=== PATIENT | female | born 1935 | race Caucasian/White ===

== ENCOUNTER → 2016-09-15 | Outpatient (REF) | payer MEDICARE, MEDICAID ==
[~2016-09-15] MED LIST: ALLO15TA PO; ASPI1TAB PO; CARB1TAB21 PO; CENT1TAB PO; DULO1CAP2 PO; FURO20TA2 PO; GABA-282 PO; INSUHUMDS SC; INSULANT SC; MYRB25TA PO; OMEP20CA3 PO; PRAV20TA2 PO; PREG50CA PO
== END ==
LOC: M LAB REF 16:46
PROVIDERS: ATTEND Obstetrics & Gynecology
DX: N39.46 Mixed incontinence (principal)

== ENCOUNTER → 2016-10-06 | Outpatient (REF) | payer MEDICARE, MEDICAID | LOC: M LAB REF 17:36 | PROVIDERS: ATTEND Obstetrics & Gynecology | DX: N39.42 Incontinence without sensory awareness (principal); N39.46 Mixed incontinence ==

== ENCOUNTER → 2016-10-21 | Outpatient (REF) | payer MEDICARE, MEDICAID | LOC: M LAB REF 09:25 | PROVIDERS: ATTEND Obstetrics & Gynecology | DX: Z87.440 Personal history of urinary (tract) infections (principal); R39.9 Unspecified symptoms and signs involving the genitourinary system ==

== ENCOUNTER 2016-12-04 07:45 | Day surgery (SDC) | payer MEDICARE, MEDICAID ==
[~2016-12-04] VITALS: Ht 147.3 cm; Wt 122.5 kg
[2016-12-04] MEDS ORDERED: LR 1,000 ML IV SCH ×3 (08:00→11:00)
[2016-12-04] MEDS ORDERED: D5W/0.45% SODIUM CHLORIDE 1,000 ML IV SCH (08:00)
[2016-12-04] MEDS ORDERED: LIDOCAINE 2% INJ 100 MG/5 ML SDV (FOR ANES.) As Ordered ONE (08:16)
[2016-12-04] MEDS ORDERED: PROPOFOL 200 MG/20 ML VIAL As Ordered ONE (08:16)
[2016-12-04] MEDS ORDERED: ONDANSETRON 4MG/2ML VIAL (J2405) As Ordered ONE (08:16)
[2016-12-04] MEDS ORDERED: dexameTHASONE 4 MG/ML 1ML VIAL (J1100) As Ordered ONE (08:16)
[2016-12-04] MEDS ORDERED: fentaNYL 100 MCG/2 ML INJECTION (J3010) As Ordered ONE (08:16)
[2016-12-04] MEDS ORDERED: MIDAZOLAM INJ 2 MG/2 ML VIAL (J2250) As Ordered ONE (08:16)
[2016-12-04] MEDS ORDERED: BUPIVACAINE HCL 0.5% 30 ML VIAL As Ordered ONE (09:42)
[2016-12-04] MEDS ORDERED: KETOROLAC 30 MG/ML VIAL (J1885) As Ordered ONE (10:42)
[2016-12-04] MEDS ORDERED: IBUPROFEN 600 MG TAB PO PRN (11:00)
[2016-12-04] MEDS ORDERED: ONDANSETRON 4MG/2ML VIAL (J2405) IV PRN (11:00)
[2016-12-04] MEDS ORDERED: KETOROLAC 30 MG/ML VIAL (J1885) IV ONE (11:00)
[2016-12-04] MEDS ORDERED: NORCO, ANEXSIA 5/325MG TABLET (HYDROcodone/ACETAMINOPHEN) PO PRN (11:00)
[2016-12-04] MEDS ORDERED: fentaNYL 100 MCG/2 ML INJECTION (J3010) IV PRN (11:00)
--- NOTE | 2016-12-04 11:53 | RO ---
DATE OF SURGERY: 12/04/2016 PREOPERATIVE DIAGNOSES AND INDICATION FOR SURGERY: Intrinsic sphincteric deficiency and incontinence. POSTOPERATIVE DIAGNOSES: Intrinsic sphincteric deficiency and incontinence. PROCEDURE: Cystourethroscopy with macroplastique periurethral bulking. SURGEON: Rosie Dailey MD APPLIANCE SERVICE TECHNICIAN: ANESTHESIA: Laryngeal mask airway (LMA) anesthesia. BRIEF DESCRIPTION OF PROCEDURE AND FINDINGS: Ritu was brought to the operating room, where sufficient LMA anesthesia was induced. She was prepped, draped, and positioned in the usual sterile fashion. 5 mL of Marcaine were placed periurethrally each side for a urethral block and postoperative numbing, and the cystoscope was placed. Our picture initially was seriously suboptimal. We had some light cord difficulties, but we were able to find the urethral orifices, and we also in manipulating the scope, initially thinking that there was another problem, we did scrape the wall of the bladder a little, so there is a picture of a little bit of the unroofed mucosa, but it is clearly not a full-thickness injury, and we watched that. It stopped bleeding on its own, but it is not a polyp in the picture; that is actually from the scope and our inability to visualize well initially, which did resolve after switching out light cord and scope, and we had a better picture. We then were able to show the lower bladder segment and the urethra, and there was clearly laxity, and we injected macroplastique periurethrally, injecting at 8 o'clock and about 4:30 with good coaptation of the tissues. We injected about an ampule and three-quarters, so a little under two ampules, and we were able to get good coaptation of the tissues without any evidence of a blowout. We waited 30 seconds after injecting at each site before pulling out the needle and then ended the procedure after the macroplastique periurethral bulking was completed. Estimated blood loss for the procedure was a mL or two, just from the injection, maybe 5 maximum. SPECIMEN: None. COMPLICATION: None. CONDITION AND DISPOSITION: Ritu tolerated the procedure well and was recovering in the recovery room in good condition.
[2016-12-04 11:56] VITALS: BP 170/77
== END 2016-12-04 11:57 | disposition home or self-care (01) ==
LOC: M SDC 07:45
PROVIDERS: ATTEND Obstetrics & Gynecology
DX: N36.42 Intrinsic sphincter deficiency (ISD) (principal); R32 Unspecified urinary incontinence; E11.9 Type 2 diabetes mellitus without complications; Z88.0 Allergy status to penicillin; Z79.4 Long term (current) use of insulin; Z79.899 Other long term (current) drug therapy; E78.5 Hyperlipidemia, unspecified; G25.81 Restless legs syndrome; F32.9 Major depressive disorder, single episode, unspecified; R06.02 Shortness of breath
CPT/HCPCS: 51715; C1815; J0690; J1100; J1885; J2250; J2405; J3010

== ENCOUNTER 2017-02-08 16:25 | Emergency (ER) | payer MEDICARE, MEDICAID ==
[2017-02-08] MEDS: MORPHINE 4 MG/ML 1ML SYRINGE IV ×2 (16:53→19:51)
[2017-02-08 17:11] LABS: BASO # 0.2 10^3/uL (0.0-0.2); BASO % 1.1 % (0.0-1.0); EOS # 0.2 10^3/uL (0.0-0.50); EOS % 1.2 % (0.0-3.0); IMMATURE GRANULOCYTE # 0.1 10^3/uL (0-0); IMMATURE GRANULOCYTE % 0.7 % (0-0); LYMPH # 1.9 10^3/uL (1.5-4.5); MEAN CORPUSCULAR HEMOGLOBIN 28.8 pg (27.0-33.0); MEAN CORPUSCULAR HGB CONC 31.9 g/dl (32.0-36.5); MONO # 0.8 10^3/uL (0.0-0.8); MONO % 6.4 % (0.0-5.0); NEUTROPHILS # 10.1 10^3/uL (1.8-7.7); NEUTROPHILS % 76.6 % (36.0-66.0); PLATELET COUNT, AUTOMATED 290 10^3/uL (150-450); RED CELL DISTRIBUTION WIDTH 13.3 % (11.5-14.5); WHITE BLOOD COUNT 13.2 10^3/uL (4.0-10.0)
[2017-02-08 17:17] LABS: INR 0.96
[2017-02-08 18:09] LABS: ANION GAP 7 MEQ/L (8-16); BLOOD UREA NITROGEN 18 MG/DL (7-18); CALCIUM LEVEL 8.6 MG/DL (8.8-10.2); CARBON DIOXIDE LEVEL 28 MEQ/L (21-32); CHLORIDE LEVEL 107 MEQ/L (98-107); GLOMERULAR FILTRATION RATE 56.5 (>32); GLUCOSE, FASTING 176 MG/DL (83-110); POTASSIUM SERUM 4.8 MEQ/L (3.5-5.1); SODIUM LEVEL 142 MEQ/L (136-145)
== END 2017-02-08 19:57 | disposition short-term general hospital (02) ==
LOC: M ED 16:25
DX: S72.125A Nondisplaced fracture of lesser trochanter of left femur, initial encounter for closed fracture (principal); W01.198A Fall on same level from slipping, tripping and stumbling with subsequent striking against other object, initial encounter; Y92.099 Unspecified place in other non-institutional residence as the place of occurrence of the external cause; Y93.01 Activity, walking, marching and hiking; Y99.9 Unspecified external cause status
CPT/HCPCS: 71010

== ENCOUNTER → 2017-02-18 | Outpatient (REF) ==
[2017-02-18 11:00] LABS: HEMATOCRIT 28.6 % (36.0-47.0); HEMOGLOBIN 9.4 g/dl (12.0-16.0); MEAN CORPUSCULAR HEMOGLOBIN 29.2 pg (27.0-33.0); MEAN CORPUSCULAR HGB CONC 32.9 g/dl (32.0-36.5); MEAN CORPUSCULAR VOLUME 88.8 fl (80.0-96.0); PLATELET COUNT, AUTOMATED 373 10^3/uL (150-450); RED BLOOD COUNT 3.22 10^6/uL (4.00-5.40); RED CELL DISTRIBUTION WIDTH 13.6 % (11.5-14.5)
[2017-02-18 11:23] LABS: ANION GAP 8 MEQ/L (8-16); BLOOD UREA NITROGEN 18 MG/DL (7-18); CALCIUM LEVEL 8.1 MG/DL (8.8-10.2); CARBON DIOXIDE LEVEL 35 MEQ/L (21-32); CHLORIDE LEVEL 96 MEQ/L (98-107); GLOMERULAR FILTRATION RATE > 60.0 (>32); GLUCOSE, FASTING 153 MG/DL (83-110); POTASSIUM SERUM 3.4 MEQ/L (3.5-5.1); SODIUM LEVEL 139 MEQ/L (136-145)
== END ==
DX: D64.9 Anemia, unspecified (principal)

== ENCOUNTER → 2017-02-19 | Outpatient (REF) ==
[2017-02-19 20:47] LABS: APPEARANCE, URINE CLOUDY (CLEAR); BACTERIA, URINE AUTO 3+ (NEGATIVE); BILIRUBIN, URINE AUTO NEGATIVE (NEGATIVE); BLOOD, URINE BLOOD 1+ (NEGATIVE); COLOR, URINE YELLOW (YELLOW); GLUCOSE, URINE (UA) AUTO NEGATIVE (NEGATIVE); KETONE, URINE AUTO NEGATIVE (NEGATIVE); LEUKOCYTE ESTERASE, URINE AUTO 3+ (NEGATIVE); MUCUS, URINE SMALL (NEGATIVE); NITRITE, URINE AUTO POSITIVE (NEGATIVE); PROTEIN, URINE AUTO NEGATIVE (NEGATIVE); RBC, URINE AUTO 4 /HPF (0-3); SPECIFIC GRAVITY URINE AUTO 1.008 (1.002-1.035); SQUAMOUS EPITHELIAL CELL UR AU 6 /HPF (0-6); UROBILINOGEN, URINE AUTO 0.2 mg/dL (0.0-2.0); WBC, URINE AUTO 65 /HPF (0-3)
== END ==
DX: D72.829 Elevated white blood cell count, unspecified (principal)

== ENCOUNTER → 2017-02-19 | Outpatient (REF) ==
[2017-02-19 13:42] LABS: HEMATOCRIT 29.8 % (36.0-47.0); HEMOGLOBIN 9.6 g/dl (12.0-16.0); MEAN CORPUSCULAR HEMOGLOBIN 28.6 pg (27.0-33.0); MEAN CORPUSCULAR HGB CONC 32.2 g/dl (32.0-36.5); MEAN CORPUSCULAR VOLUME 88.7 fl (80.0-96.0); PLATELET COUNT, AUTOMATED 447 10^3/uL (150-450); RED BLOOD COUNT 3.36 10^6/uL (4.00-5.40); RED CELL DISTRIBUTION WIDTH 13.6 % (11.5-14.5); WHITE BLOOD COUNT 18.9 10^3/uL (4.0-10.0)
== END ==
DX: D72.829 Elevated white blood cell count, unspecified (principal)

== ENCOUNTER → 2017-02-23 | Outpatient (REF) ==
[2017-02-23 13:32] LABS: HEMATOCRIT 32.3 % (36.0-47.0); HEMOGLOBIN 10.1 g/dl (12.0-16.0); MEAN CORPUSCULAR HEMOGLOBIN 28.5 pg (27.0-33.0); MEAN CORPUSCULAR HGB CONC 31.3 g/dl (32.0-36.5); MEAN CORPUSCULAR VOLUME 91.2 fl (80.0-96.0); PLATELET COUNT, AUTOMATED 604 10^3/uL (150-450); RED BLOOD COUNT 3.54 10^6/uL (4.00-5.40); RED CELL DISTRIBUTION WIDTH 13.9 % (11.5-14.5); WHITE BLOOD COUNT 12.8 10^3/uL (4.0-10.0)
[2017-02-23 13:56] LABS: ANION GAP 6 MEQ/L (8-16); BLOOD UREA NITROGEN 17 MG/DL (7-18); CARBON DIOXIDE LEVEL 36 MEQ/L (21-32); CHLORIDE LEVEL 98 MEQ/L (98-107); CREATININE FOR GFR 0.85 MG/DL (0.55-1.02); GLOMERULAR FILTRATION RATE > 60.0 (>32); GLUCOSE, FASTING 147 MG/DL (83-110); POTASSIUM SERUM 3.8 MEQ/L (3.5-5.1); SODIUM LEVEL 140 MEQ/L (136-145)
== END ==
DX: D72.829 Elevated white blood cell count, unspecified (principal)

== ENCOUNTER → 2017-03-24 | Outpatient (REF) ==
[2017-03-24 11:01] LABS: HEMATOCRIT 34.9 % (36.0-47.0); MEAN CORPUSCULAR HEMOGLOBIN 28.5 pg (27.0-33.0); MEAN CORPUSCULAR HGB CONC 31.5 g/dl (32.0-36.5); MEAN CORPUSCULAR VOLUME 90.4 fl (80.0-96.0); PLATELET COUNT, AUTOMATED 324 10^3/uL (150-450); RED BLOOD COUNT 3.86 10^6/uL (4.00-5.40); RED CELL DISTRIBUTION WIDTH 13.9 % (11.5-14.5); WHITE BLOOD COUNT 7.3 10^3/uL (4.0-10.0)
[2017-03-24 11:30] LABS: ANION GAP 6 MEQ/L (8-16); BLOOD UREA NITROGEN 15 MG/DL (7-18); CALCIUM LEVEL 9.2 MG/DL (8.8-10.2); CARBON DIOXIDE LEVEL 34 MEQ/L (21-32); CHLORIDE LEVEL 97 MEQ/L (98-107); CREATININE FOR GFR 0.78 MG/DL (0.55-1.30); GLOMERULAR FILTRATION RATE > 60.0 (>32); GLUCOSE, FASTING 251 MG/DL (70-100); POTASSIUM SERUM 3.7 MEQ/L (3.5-5.1); SODIUM LEVEL 137 MEQ/L (136-145)
== END ==
DX: D64.9 Anemia, unspecified (principal)

== ENCOUNTER → 2017-04-01 | Outpatient (REF) ==
[2017-04-01 10:52] LABS: HEMATOCRIT 36.4 % (36.0-47.0); HEMOGLOBIN 11.3 g/dl (12.0-16.0); MEAN CORPUSCULAR HEMOGLOBIN 28.4 pg (27.0-33.0); MEAN CORPUSCULAR VOLUME 91.5 fl (80.0-96.0); PLATELET COUNT, AUTOMATED 324 10^3/uL (150-450); RED BLOOD COUNT 3.98 10^6/uL (4.00-5.40); RED CELL DISTRIBUTION WIDTH 13.8 % (11.5-14.5); WHITE BLOOD COUNT 7.8 10^3/uL (4.0-10.0)
[2017-04-01 11:17] LABS: ANION GAP 8 MEQ/L (8-16); BLOOD UREA NITROGEN 14 MG/DL (7-18); CALCIUM LEVEL 8.7 MG/DL (8.8-10.2); CARBON DIOXIDE LEVEL 33 MEQ/L (21-32); CHLORIDE LEVEL 100 MEQ/L (98-107); CREATININE FOR GFR 0.77 MG/DL (0.55-1.30); GLOMERULAR FILTRATION RATE > 60.0 (>32); GLUCOSE, FASTING 186 MG/DL (70-100); POTASSIUM SERUM 4.2 MEQ/L (3.5-5.1); SODIUM LEVEL 141 MEQ/L (136-145)
== END ==
DX: D64.9 Anemia, unspecified (principal)

== ENCOUNTER → 2017-04-22 | Outpatient (REF) ==
[2017-04-22 08:50] LABS: ESTIMATED AVERAGE GLUCOSE 174 MG/DL (60-110); HEMOGLOBIN A1c 7.7 %
== END ==
DX: E11.9 Type 2 diabetes mellitus without complications (principal)

== ENCOUNTER 2017-08-31 10:32 | Emergency (ER) | payer MEDICARE, MEDICAID ==
[2017-08-31] MEDS: DEXTROSE 50% 50 ML SYRINGE IV (12:22)
[2017-08-31] MEDS ORDERED: DEXTROSE 50% 50 ML SYRINGE As Ordered (12:23)
[2017-08-31 13:01] LABS: BEDSIDE GLUCOSE 41 MG/DL (83-110)
[2017-08-31 13:01] LABS: BEDSIDE GLUCOSE 170 MG/DL (83-110)
[2017-08-31] MEDS: NS 500 ML IV (13:11)
[2017-08-31 13:23] LABS: ALBUMIN 2.8 GM/DL (3.2-5.2); ALBUMIN/GLOBULIN RATIO 0.78 (1.00-1.93); ALT/SGPT 11 U/L (12-78); ANION GAP 7 MEQ/L (8-16); AST/SGOT 15 U/L (7-37); BILIRUBIN,DIRECT 0.1 MG/DL (0.0-0.2); BILIRUBIN,TOTAL 0.3 MG/DL (0.2-1.0); BLOOD UREA NITROGEN 16 MG/DL (7-18); CALCIUM LEVEL 8.4 MG/DL (8.8-10.2); CARBON DIOXIDE LEVEL 28 MEQ/L (21-32); CHLORIDE LEVEL 109 MEQ/L (98-107); CPK CREATINE PHOSPHOKINASE 42 U/L (26-192); CREATININE FOR GFR 0.84 MG/DL (0.55-1.30); GLOMERULAR FILTRATION RATE > 60.0 (>32); GLUCOSE, FASTING 47 MG/DL (70-100); POTASSIUM SERUM 3.8 MEQ/L (3.5-5.1); SODIUM LEVEL 144 MEQ/L (136-145); TOTAL PROTEIN 6.4 GM/DL (6.4-8.2); TROPONIN I 0.02 NG/ML (< 0.10)
[2017-08-31 13:28] LABS: ALKALINE PHOSPHATASE 113 U/L (45-117); CK-MB VALUE MASS < 1.0 NG/ML (<3.6); MB/CK RELATIVE INDEX 2.38 (< OR =4); NT-PRO BNP 267 PG/ML (<450); THYROID STIMULATING HORMONE 0.822 uIU/ML (0.358-3.740)
[2017-08-31 14:03] LABS: KETONE, URINE AUTO RFX NEGATIVE (NEGATIVE); RBC, URINE AUTO RFX 1 /HPF (0-3); SQUAM EPITHELIAL CELL UR AURFX 0 /HPF (0-6)
[2017-08-31 14:13] LABS: ESTIMATED AVERAGE GLUCOSE 123 MG/DL (60-110); HEMOGLOBIN A1c 5.9 %
[2017-08-31 14:23] LABS: LEUKOCYTE ESTERASE UR AUTO RFX 1+ (NEGATIVE); NITRITE, URINE AUTO RFX POSITIVE (NEGATIVE); WBC, URINE AUTO RFX 15 /HPF (0-3)
[2017-08-31] MEDS: EXCEDRIN MIGRAINE TABLET PO (14:30)
[2017-08-31] MEDS: CIPROFLOXACIN 500 MG TAB PO (15:21)
[2017-08-31] MEDS: NORCO, ANEXSIA 5/325MG TABLET (HYDROcodone/ACETAMINOPHEN) PO (15:22)
[2017-08-31 15:46] LABS: HEMATOCRIT 36.3 % (36.0-47.0); HEMOGLOBIN 11.7 g/dl (12.0-15.5); MEAN CORPUSCULAR HEMOGLOBIN 30.5 pg (27.0-33.0); MEAN CORPUSCULAR HGB CONC 32.2 g/dl (32.0-36.5); MEAN CORPUSCULAR VOLUME 94.8 fl (80.0-96.0); PLATELET COUNT, AUTOMATED 358 10^3/uL (150-450); RED BLOOD COUNT 3.83 10^6/uL (4.00-5.40); RED CELL DISTRIBUTION WIDTH 13.3 % (11.5-14.5); WHITE BLOOD COUNT 14.4 10^3/uL (4.0-10.0)
== END 2017-08-31 17:55 | disposition home or self-care (01) ==
LOC: M ED 10:32
DX: S00.03XA Contusion of scalp, initial encounter (principal); W19.XXXA Unspecified fall, initial encounter; Y92.091 Bathroom in other non-institutional residence as the place of occurrence of the external cause; Y93.89 Activity, other specified; Y99.9 Unspecified external cause status; E11.649 Type 2 diabetes mellitus with hypoglycemia without coma; N39.0 Urinary tract infection, site not specified; I50.9 Heart failure, unspecified; M47.812 Spondylosis without myelopathy or radiculopathy, cervical region; Z79.82 Long term (current) use of aspirin; Z79.4 Long term (current) use of insulin; Z79.899 Other long term (current) drug therapy; Z88.6 Allergy status to analgesic agent; Z88.0 Allergy status to penicillin
CPT/HCPCS: 71045

== ENCOUNTER 2017-09-07 15:47 | Inpatient (IN) | payer MEDICARE, MEDICAID ==
[2017-09-07] MEDS ORDERED: DEXTROSE 50% 50 ML SYRINGE IV (18:45)
[2017-09-07] MEDS ORDERED: GLUCAGON FOR INJ 1 MG VIAL (J1610) SC (18:45)
[2017-09-07] MEDS ORDERED: ONDANSETRON 4MG/2ML VIAL (J2405) IV (18:45)
[2017-09-07] MEDS ORDERED: GLUCOSE 4 GM CHEW TABLET PO (18:45)
[2017-09-07] MEDS: ACETAMINOPHEN TAB 650MG DOSE (2X325MG) PO ×2 (18:53→23:13)
[2017-09-07 19:43] LABS: HEMATOCRIT 34.2 % (36.0-47.0); HEMOGLOBIN 10.8 g/dl (12.0-15.5); MEAN CORPUSCULAR HEMOGLOBIN 29.5 pg (27.0-33.0); MEAN CORPUSCULAR HGB CONC 31.6 g/dl (32.0-36.5); MEAN CORPUSCULAR VOLUME 93.4 fl (80.0-96.0); PLATELET COUNT, AUTOMATED 331 10^3/uL (150-450); RED BLOOD COUNT 3.66 10^6/uL (4.00-5.40); RED CELL DISTRIBUTION WIDTH 12.9 % (11.5-14.5); WHITE BLOOD COUNT 10.9 10^3/uL (4.0-10.0)
[2017-09-07 20:15] LABS: ANION GAP 7 MEQ/L (8-16); BLOOD UREA NITROGEN 14 MG/DL (7-18); CALCIUM LEVEL 8.3 MG/DL (8.8-10.2); CARBON DIOXIDE LEVEL 29 MEQ/L (21-32); CHLORIDE LEVEL 110 MEQ/L (98-107); CREATININE FOR GFR 0.75 MG/DL (0.55-1.30); GLOMERULAR FILTRATION RATE > 60.0 (>32); GLUCOSE, FASTING 111 MG/DL (70-100); POTASSIUM SERUM 3.6 MEQ/L (3.5-5.1); SODIUM LEVEL 146 MEQ/L (136-145)
[2017-09-07] MEDS: HumaLOG INSULIN (NovoLOG) PER UNIT SC (21:00)
[2017-09-07] MEDS: LEVEMIR (INSULIN DETEMIR) 1 UNITS/0.01ML SC (21:14)
[2017-09-07] MEDS: GABAPENTIN 400 MG CAP PO (21:14)
[2017-09-07] MEDS: PREGABALIN 50 MG CAP (LYRICA) PO (21:14)
[2017-09-07] MEDS: HEPARIN SOD (PORCINE) 5000 UNITS/ML VIAL SC (21:14)
[2017-09-07] MEDS: SINEMET 25-250 TABLET PO (23:13)
[2017-09-08] MEDS: HEPARIN SOD (PORCINE) 5000 UNITS/ML VIAL SC ×3 (05:56→21:12)
[2017-09-08 06:54] LABS: HEMOGLOBIN 10.8 g/dl (12.0-15.5); MEAN CORPUSCULAR HEMOGLOBIN 29.3 pg (27.0-33.0); MEAN CORPUSCULAR HGB CONC 31.8 g/dl (32.0-36.5); MEAN CORPUSCULAR VOLUME 92.1 fl (80.0-96.0); PLATELET COUNT, AUTOMATED 336 10^3/uL (150-450); RED BLOOD COUNT 3.69 10^6/uL (4.00-5.40); WHITE BLOOD COUNT 9.3 10^3/uL (4.0-10.0)
[2017-09-08 07:25] LABS: ANION GAP 8 MEQ/L (8-16); BLOOD UREA NITROGEN 12 MG/DL (7-18); CALCIUM LEVEL 8.4 MG/DL (8.8-10.2); CARBON DIOXIDE LEVEL 29 MEQ/L (21-32); CHLORIDE LEVEL 109 MEQ/L (98-107); CREATININE FOR GFR 0.68 MG/DL (0.55-1.30); GLOMERULAR FILTRATION RATE > 60.0 (>32); POTASSIUM SERUM 3.5 MEQ/L (3.5-5.1); SODIUM LEVEL 146 MEQ/L (136-145)
[2017-09-08] MEDS: HumaLOG INSULIN (NovoLOG) PER UNIT SC ×4 (07:30→21:00)
[2017-09-08 07:49] LABS: GLUCOSE, FASTING 34 MG/DL (70-100)
[2017-09-08] MEDS: ASPIRIN 81 MG ENTERIC TAB PO (08:29)
[2017-09-08] MEDS: DULoxetine 30 MG CAP (CYMBALTA) PO (08:29)
[2017-09-08] MEDS: ALLOPURINOL 300 MG TAB PO (08:29)
[2017-09-08] MEDS: MULTIVITAMINS/MINERALS THERAP 1 TAB PO (08:29)
[2017-09-08] MEDS: GABAPENTIN 400 MG CAP PO ×2 (08:29→21:13)
[2017-09-08] MEDS: PREGABALIN 50 MG CAP (LYRICA) PO ×2 (08:29→21:12)
[2017-09-08] MEDS: OMEPRAZOLE 20 MG CAP PO (08:29)
[2017-09-08] MEDS: PRAVASTATIN 20 MG TAB PO (08:29)
[2017-09-08] MEDS: FUROSEMIDE 20 MG TAB PO (08:29)
[2017-09-08] MEDS: ACETAMINOPHEN TAB 650MG DOSE (2X325MG) PO ×2 (08:34→16:17)
[2017-09-08] MEDS ORDERED: SINEMET 25-250 TABLET PO (09:00)
[2017-09-08 09:11] LABS: BEDSIDE GLUCOSE 80 MG/DL (83-110)
[2017-09-08 11:47] LABS: BEDSIDE GLUCOSE 85 MG/DL (83-110)
[2017-09-08] MEDS: NORCO, ANEXSIA 5/325MG TABLET (HYDROcodone/ACETAMINOPHEN) PO (11:49)
[2017-09-08 15:20] LABS: CPK CREATINE PHOSPHOKINASE 28 U/L (26-192); THYROID STIMULATING HORMONE 0.283 uIU/ML (0.358-3.740)
[2017-09-08 16:39] LABS: BEDSIDE GLUCOSE 132 MG/DL (83-110)
[2017-09-08 19:42] LABS: BEDSIDE GLUCOSE 141 MG/DL (83-110)
[2017-09-08] MEDS: LEVEMIR (INSULIN DETEMIR) 1 UNITS/0.01ML SC (21:11)
[2017-09-08] MEDS: SINEMET 25-250 TABLET PO (21:13)
[2017-09-09] MEDS: HEPARIN SOD (PORCINE) 5000 UNITS/ML VIAL SC ×3 (06:09→22:03)
[2017-09-09 06:14] LABS: BEDSIDE GLUCOSE 103 MG/DL (83-110)
[2017-09-09 07:19] LABS: HEMATOCRIT 34.3 % (36.0-47.0); HEMOGLOBIN 10.8 g/dl (12.0-15.5); MEAN CORPUSCULAR HEMOGLOBIN 29.6 pg (27.0-33.0); MEAN CORPUSCULAR HGB CONC 31.5 g/dl (32.0-36.5); PLATELET COUNT, AUTOMATED 342 10^3/uL (150-450); RED BLOOD COUNT 3.65 10^6/uL (4.00-5.40); WHITE BLOOD COUNT 7.9 10^3/uL (4.0-10.0)
[2017-09-09] MEDS: HumaLOG INSULIN (NovoLOG) PER UNIT SC ×4 (07:30→20:52)
[2017-09-09 07:42] LABS: ANION GAP 6 MEQ/L (8-16); BLOOD UREA NITROGEN 12 MG/DL (7-18); CALCIUM LEVEL 8.2 MG/DL (8.8-10.2); CARBON DIOXIDE LEVEL 31 MEQ/L (21-32); CHLORIDE LEVEL 109 MEQ/L (98-107); CREATININE FOR GFR 0.67 MG/DL (0.55-1.30); GLOMERULAR FILTRATION RATE > 60.0 (>32); GLUCOSE, FASTING 83 MG/DL (70-100); POTASSIUM SERUM 3.7 MEQ/L (3.5-5.1); SODIUM LEVEL 146 MEQ/L (136-145)
[2017-09-09 08:50] LABS: FREE THYROXINE INDEX 2.9 % (1.3-4.8); T UPTAKE 38 % (30-39); THYROXINE (T4) 7.6 UG/DL (4.5-12.0)
[2017-09-09] MEDS: PREGABALIN 50 MG CAP (LYRICA) PO ×2 (09:03→20:52)
[2017-09-09] MEDS: FUROSEMIDE 20 MG TAB PO (09:04)
[2017-09-09] MEDS: DULoxetine 30 MG CAP (CYMBALTA) PO (09:04)
[2017-09-09] MEDS: OMEPRAZOLE 20 MG CAP PO (09:04)
[2017-09-09] MEDS: MULTIVITAMINS/MINERALS THERAP 1 TAB PO (09:04)
[2017-09-09] MEDS: PRAVASTATIN 20 MG TAB PO (09:04)
[2017-09-09] MEDS: ALLOPURINOL 300 MG TAB PO (09:04)
[2017-09-09] MEDS: GABAPENTIN 400 MG CAP PO ×2 (09:04→20:52)
[2017-09-09] MEDS: ASPIRIN 81 MG ENTERIC TAB PO (09:04)
[2017-09-09 11:40] LABS: BEDSIDE GLUCOSE 133 MG/DL (83-110)
[2017-09-09] MEDS: NORCO, ANEXSIA 5/325MG TABLET (HYDROcodone/ACETAMINOPHEN) PO ×2 (12:06→20:54)
[2017-09-09 16:35] LABS: BEDSIDE GLUCOSE 215 MG/DL (83-110)
[2017-09-09 19:49] LABS: BEDSIDE GLUCOSE 171 MG/DL (83-110)
[2017-09-09] MEDS: LEVEMIR (INSULIN DETEMIR) 1 UNITS/0.01ML SC (20:52)
[2017-09-09] MEDS: SINEMET 25-250 TABLET PO (20:52)
[2017-09-10] MEDS: HEPARIN SOD (PORCINE) 5000 UNITS/ML VIAL SC ×3 (05:41→21:10)
[2017-09-10 06:13] LABS: HEMATOCRIT 35.5 % (36.0-47.0); MEAN CORPUSCULAR HEMOGLOBIN 29.3 pg (27.0-33.0); MEAN CORPUSCULAR VOLUME 94.7 fl (80.0-96.0); PLATELET COUNT, AUTOMATED 327 10^3/uL (150-450); RED BLOOD COUNT 3.75 10^6/uL (4.00-5.40); WHITE BLOOD COUNT 8.5 10^3/uL (4.0-10.0)
[2017-09-10 06:30] LABS: ANION GAP 6 MEQ/L (8-16); BLOOD UREA NITROGEN 12 MG/DL (7-18); CALCIUM LEVEL 8.4 MG/DL (8.8-10.2); CARBON DIOXIDE LEVEL 32 MEQ/L (21-32); CHLORIDE LEVEL 105 MEQ/L (98-107); CREATININE FOR GFR 0.68 MG/DL (0.55-1.30); GLOMERULAR FILTRATION RATE > 60.0 (>32); GLUCOSE, FASTING 147 MG/DL (70-100); POTASSIUM SERUM 3.7 MEQ/L (3.5-5.1); SODIUM LEVEL 143 MEQ/L (136-145)
[2017-09-10] MEDS: PRAVASTATIN 20 MG TAB PO (08:09)
[2017-09-10] MEDS: ASPIRIN 81 MG ENTERIC TAB PO (08:09)
[2017-09-10] MEDS: GABAPENTIN 400 MG CAP PO ×2 (08:09→21:10)
[2017-09-10] MEDS: ALLOPURINOL 300 MG TAB PO (08:09)
[2017-09-10] MEDS: FUROSEMIDE 20 MG TAB PO (08:09)
[2017-09-10] MEDS: DULoxetine 30 MG CAP (CYMBALTA) PO (08:09)
[2017-09-10] MEDS: MULTIVITAMINS/MINERALS THERAP 1 TAB PO (08:10)
[2017-09-10] MEDS: OMEPRAZOLE 20 MG CAP PO (08:10)
[2017-09-10] MEDS: PREGABALIN 50 MG CAP (LYRICA) PO ×2 (08:10→21:10)
[2017-09-10] MEDS: HumaLOG INSULIN (NovoLOG) PER UNIT SC ×4 (08:10→21:00)
[2017-09-10 11:56] LABS: BEDSIDE GLUCOSE 131 MG/DL (83-110)
[2017-09-10] MEDS: NORCO, ANEXSIA 5/325MG TABLET (HYDROcodone/ACETAMINOPHEN) PO ×2 (14:44→23:08)
[2017-09-10 16:53] LABS: BEDSIDE GLUCOSE 169 MG/DL (83-110)
[2017-09-10 20:47] LABS: BEDSIDE GLUCOSE 145 MG/DL (83-110)
[2017-09-10] MEDS: SINEMET 25-250 TABLET PO (21:10)
[2017-09-10] MEDS: LEVEMIR (INSULIN DETEMIR) 1 UNITS/0.01ML SC (21:11)
[2017-09-11] MEDS: HEPARIN SOD (PORCINE) 5000 UNITS/ML VIAL SC ×3 (05:20→21:16)
[2017-09-11 05:54] LABS: HEMATOCRIT 35.9 % (36.0-47.0); HEMOGLOBIN 11.2 g/dl (12.0-15.5); MEAN CORPUSCULAR HEMOGLOBIN 29.6 pg (27.0-33.0); MEAN CORPUSCULAR HGB CONC 31.2 g/dl (32.0-36.5); MEAN CORPUSCULAR VOLUME 94.7 fl (80.0-96.0); PLATELET COUNT, AUTOMATED 331 10^3/uL (150-450); RED BLOOD COUNT 3.79 10^6/uL (4.00-5.40); WHITE BLOOD COUNT 9.2 10^3/uL (4.0-10.0)
[2017-09-11 06:10] LABS: ANION GAP 5 MEQ/L (8-16); BLOOD UREA NITROGEN 13 MG/DL (7-18); CALCIUM LEVEL 8.6 MG/DL (8.8-10.2); CARBON DIOXIDE LEVEL 33 MEQ/L (21-32); CHLORIDE LEVEL 105 MEQ/L (98-107); GLOMERULAR FILTRATION RATE > 60.0 (>32); GLUCOSE, FASTING 128 MG/DL (70-100); POTASSIUM SERUM 3.9 MEQ/L (3.5-5.1); SODIUM LEVEL 143 MEQ/L (136-145)
[2017-09-11] MEDS: OMEPRAZOLE 20 MG CAP PO (08:47)
[2017-09-11] MEDS: GABAPENTIN 400 MG CAP PO ×2 (08:47→21:16)
[2017-09-11] MEDS: PRAVASTATIN 20 MG TAB PO (08:47)
[2017-09-11] MEDS: ALLOPURINOL 300 MG TAB PO (08:47)
[2017-09-11] MEDS: DULoxetine 30 MG CAP (CYMBALTA) PO (08:47)
[2017-09-11] MEDS: ASPIRIN 81 MG ENTERIC TAB PO (08:47)
[2017-09-11] MEDS: PREGABALIN 50 MG CAP (LYRICA) PO ×2 (08:48→21:16)
[2017-09-11] MEDS: MULTIVITAMINS/MINERALS THERAP 1 TAB PO (08:48)
[2017-09-11] MEDS: FUROSEMIDE 20 MG TAB PO (08:48)
[2017-09-11] MEDS: HumaLOG INSULIN (NovoLOG) PER UNIT SC ×4 (08:49→21:00)
[2017-09-11 12:02] LABS: BEDSIDE GLUCOSE 142 MG/DL (83-110)
[2017-09-11] MEDS: ACETAMINOPHEN TAB 650MG DOSE (2X325MG) PO (15:28)
[2017-09-11 17:01] LABS: BEDSIDE GLUCOSE 182 MG/DL (83-110)
[2017-09-11] MEDS: NORCO, ANEXSIA 5/325MG TABLET (HYDROcodone/ACETAMINOPHEN) PO (17:31)
[2017-09-11 20:10] LABS: BEDSIDE GLUCOSE 232 MG/DL (83-110)
[2017-09-11] MEDS: LEVEMIR (INSULIN DETEMIR) 1 UNITS/0.01ML SC (21:16)
[2017-09-11] MEDS: SINEMET 25-250 TABLET PO (21:16)
[2017-09-12 00:09] LABS: ACETYLCHOLINE RCPTOR BINDING A 2.32 nmol/L (0.00-0.24)
[2017-09-12] MEDS: HEPARIN SOD (PORCINE) 5000 UNITS/ML VIAL SC ×3 (06:03→21:10)
[2017-09-12 06:23] LABS: HEMATOCRIT 34.4 % (36.0-47.0); HEMOGLOBIN 10.7 g/dl (12.0-15.5); MEAN CORPUSCULAR HEMOGLOBIN 29.3 pg (27.0-33.0); MEAN CORPUSCULAR HGB CONC 31.1 g/dl (32.0-36.5); MEAN CORPUSCULAR VOLUME 94.2 fl (80.0-96.0); PLATELET COUNT, AUTOMATED 312 10^3/uL (150-450); RED BLOOD COUNT 3.65 10^6/uL (4.00-5.40); RED CELL DISTRIBUTION WIDTH 13.1 % (11.5-14.5); WHITE BLOOD COUNT 9.6 10^3/uL (4.0-10.0)
[2017-09-12 06:37] LABS: ANION GAP 5 MEQ/L (8-16); BLOOD UREA NITROGEN 15 MG/DL (7-18); CALCIUM LEVEL 8.6 MG/DL (8.8-10.2); CARBON DIOXIDE LEVEL 33 MEQ/L (21-32); CHLORIDE LEVEL 104 MEQ/L (98-107); CREATININE FOR GFR 0.71 MG/DL (0.55-1.30); GLOMERULAR FILTRATION RATE > 60.0 (>32); GLUCOSE, FASTING 134 MG/DL (70-100); POTASSIUM SERUM 3.5 MEQ/L (3.5-5.1); SODIUM LEVEL 142 MEQ/L (136-145)
[2017-09-12] MEDS: HumaLOG INSULIN (NovoLOG) PER UNIT SC ×4 (07:59→20:33)
[2017-09-12] MEDS: MULTIVITAMINS/MINERALS THERAP 1 TAB PO (07:59)
[2017-09-12] MEDS: ALLOPURINOL 300 MG TAB PO (07:59)
[2017-09-12] MEDS: OMEPRAZOLE 20 MG CAP PO (08:00)
[2017-09-12] MEDS: PRAVASTATIN 20 MG TAB PO (08:00)
[2017-09-12] MEDS: FUROSEMIDE 20 MG TAB PO (08:00)
[2017-09-12] MEDS: DULoxetine 30 MG CAP (CYMBALTA) PO (08:00)
[2017-09-12] MEDS: ASPIRIN 81 MG ENTERIC TAB PO (08:00)
[2017-09-12] MEDS: GABAPENTIN 400 MG CAP PO ×2 (08:00→21:10)
[2017-09-12] MEDS: PREGABALIN 50 MG CAP (LYRICA) PO ×2 (08:00→21:10)
[2017-09-12 11:59] LABS: BEDSIDE GLUCOSE 154 MG/DL (83-110)
[2017-09-12 16:47] LABS: BEDSIDE GLUCOSE 248 MG/DL (83-110)
[2017-09-12 20:15] LABS: BEDSIDE GLUCOSE 217 MG/DL (83-110)
[2017-09-12] MEDS: LEVEMIR (INSULIN DETEMIR) 1 UNITS/0.01ML SC (21:09)
[2017-09-12] MEDS: SINEMET 25-250 TABLET PO (21:10)
[2017-09-12] MEDS: NORCO, ANEXSIA 5/325MG TABLET (HYDROcodone/ACETAMINOPHEN) PO (22:23)
[2017-09-13] MEDS: ACETAMINOPHEN TAB 650MG DOSE (2X325MG) PO (01:21)
[2017-09-13] MEDS: HEPARIN SOD (PORCINE) 5000 UNITS/ML VIAL SC ×3 (05:14→21:07)
[2017-09-13 06:04] LABS: HEMOGLOBIN 11.1 g/dl (12.0-15.5); MEAN CORPUSCULAR HEMOGLOBIN 29.4 pg (27.0-33.0); MEAN CORPUSCULAR HGB CONC 31.7 g/dl (32.0-36.5); MEAN CORPUSCULAR VOLUME 92.8 fl (80.0-96.0); PLATELET COUNT, AUTOMATED 319 10^3/uL (150-450); RED BLOOD COUNT 3.77 10^6/uL (4.00-5.40); RED CELL DISTRIBUTION WIDTH 13.1 % (11.5-14.5); WHITE BLOOD COUNT 10.9 10^3/uL (4.0-10.0)
[2017-09-13 06:25] LABS: ANION GAP 6 MEQ/L (8-16); BLOOD UREA NITROGEN 17 MG/DL (7-18); CALCIUM LEVEL 8.5 MG/DL (8.8-10.2); CARBON DIOXIDE LEVEL 32 MEQ/L (21-32); CHLORIDE LEVEL 105 MEQ/L (98-107); CREATININE FOR GFR 0.76 MG/DL (0.55-1.30); GLOMERULAR FILTRATION RATE > 60.0 (>32); GLUCOSE, FASTING 140 MG/DL (70-100); POTASSIUM SERUM 3.7 MEQ/L (3.5-5.1); SODIUM LEVEL 143 MEQ/L (136-145)
[2017-09-13] MEDS: DULoxetine 30 MG CAP (CYMBALTA) PO (08:41)
[2017-09-13] MEDS: ASPIRIN 81 MG ENTERIC TAB PO (08:41)
[2017-09-13] MEDS: ALLOPURINOL 300 MG TAB PO (08:41)
[2017-09-13] MEDS: PRAVASTATIN 20 MG TAB PO (08:41)
[2017-09-13] MEDS: PREGABALIN 50 MG CAP (LYRICA) PO ×2 (08:41→21:06)
[2017-09-13] MEDS: FUROSEMIDE 20 MG TAB PO (08:42)
[2017-09-13] MEDS: GABAPENTIN 400 MG CAP PO ×2 (08:42→21:06)
[2017-09-13] MEDS: MULTIVITAMINS/MINERALS THERAP 1 TAB PO (08:42)
[2017-09-13] MEDS: HumaLOG INSULIN (NovoLOG) PER UNIT SC ×4 (08:42→21:00)
[2017-09-13] MEDS: OMEPRAZOLE 20 MG CAP PO (08:42)
[2017-09-13 12:25] LABS: BEDSIDE GLUCOSE 143 MG/DL (83-110)
[2017-09-13] MEDS: NORCO, ANEXSIA 5/325MG TABLET (HYDROcodone/ACETAMINOPHEN) PO (16:35)
[2017-09-13 16:53] LABS: BEDSIDE GLUCOSE 249 MG/DL (83-110)
[2017-09-13 20:46] LABS: BEDSIDE GLUCOSE 146 MG/DL (83-110)
[2017-09-13] MEDS: LEVEMIR (INSULIN DETEMIR) 1 UNITS/0.01ML SC (21:06)
[2017-09-13] MEDS: SINEMET 25-250 TABLET PO (21:06)
[2017-09-14] MEDS: HEPARIN SOD (PORCINE) 5000 UNITS/ML VIAL SC ×3 (05:37→21:23)
[2017-09-14 05:52] LABS: HEMATOCRIT 34.2 % (36.0-47.0); HEMOGLOBIN 10.6 g/dl (12.0-15.5); MEAN CORPUSCULAR HEMOGLOBIN 29.2 pg (27.0-33.0); MEAN CORPUSCULAR VOLUME 94.2 fl (80.0-96.0); PLATELET COUNT, AUTOMATED 313 10^3/uL (150-450); RED BLOOD COUNT 3.63 10^6/uL (4.00-5.40); RED CELL DISTRIBUTION WIDTH 13.2 % (11.5-14.5); WHITE BLOOD COUNT 9.9 10^3/uL (4.0-10.0)
[2017-09-14 06:05] LABS: ANION GAP 3 MEQ/L (8-16); BLOOD UREA NITROGEN 17 MG/DL (7-18); CALCIUM LEVEL 8.3 MG/DL (8.8-10.2); CARBON DIOXIDE LEVEL 34 MEQ/L (21-32); CHLORIDE LEVEL 106 MEQ/L (98-107); CREATININE FOR GFR 0.76 MG/DL (0.55-1.30); GLOMERULAR FILTRATION RATE > 60.0 (>32); GLUCOSE, FASTING 132 MG/DL (70-100); POTASSIUM SERUM 3.7 MEQ/L (3.5-5.1); SODIUM LEVEL 143 MEQ/L (136-145)
[2017-09-14] MEDS: ASPIRIN 81 MG ENTERIC TAB PO (09:59)
[2017-09-14] MEDS: PREGABALIN 50 MG CAP (LYRICA) PO ×2 (09:59→21:15)
[2017-09-14] MEDS: OMEPRAZOLE 20 MG CAP PO (09:59)
[2017-09-14] MEDS: MULTIVITAMINS/MINERALS THERAP 1 TAB PO (09:59)
[2017-09-14] MEDS: DULoxetine 30 MG CAP (CYMBALTA) PO (10:00)
[2017-09-14] MEDS: GABAPENTIN 400 MG CAP PO ×2 (10:00→21:15)
[2017-09-14] MEDS: HumaLOG INSULIN (NovoLOG) PER UNIT SC ×4 (10:00→20:26)
[2017-09-14] MEDS: PRAVASTATIN 20 MG TAB PO (10:00)
[2017-09-14] MEDS: ALLOPURINOL 300 MG TAB PO (10:00)
[2017-09-14] MEDS: FUROSEMIDE 20 MG TAB PO (10:01)
[2017-09-14 11:48] LABS: BEDSIDE GLUCOSE 249 MG/DL (83-110)
[2017-09-14] MEDS: PYRIDOSTIGMINE 60 MG TAB PO ×2 (16:00→21:15)
[2017-09-14 17:19] LABS: BEDSIDE GLUCOSE 137 MG/DL (83-110)
[2017-09-14 18:45] LABS: TOTAL PROTEIN 6.7 GM/DL (6.4-8.2)
[2017-09-14 19:02] LABS: VITAMIN B12 LEVEL 1335 PG/ML (247-911)
[2017-09-14 20:15] LABS: BEDSIDE GLUCOSE 147 MG/DL (83-110)
[2017-09-14] MEDS: SINEMET 25-250 TABLET PO (21:15)
[2017-09-14] MEDS: LEVEMIR (INSULIN DETEMIR) 1 UNITS/0.01ML SC (21:25)
[2017-09-14] MEDS: NORCO, ANEXSIA 5/325MG TABLET (HYDROcodone/ACETAMINOPHEN) PO (23:33)
[2017-09-15] MEDS: HEPARIN SOD (PORCINE) 5000 UNITS/ML VIAL SC ×3 (05:12→20:55)
[2017-09-15 05:34] LABS: BEDSIDE GLUCOSE 196 MG/DL (83-110)
[2017-09-15] MEDS: PRAVASTATIN 20 MG TAB PO (10:03)
[2017-09-15] MEDS: ASPIRIN 81 MG ENTERIC TAB PO (10:03)
[2017-09-15] MEDS: GABAPENTIN 400 MG CAP PO ×2 (10:03→20:58)
[2017-09-15] MEDS: HumaLOG INSULIN (NovoLOG) PER UNIT SC ×4 (10:03→20:58)
[2017-09-15] MEDS: DULoxetine 30 MG CAP (CYMBALTA) PO (10:03)
[2017-09-15] MEDS: OMEPRAZOLE 20 MG CAP PO (10:04)
[2017-09-15] MEDS: ALLOPURINOL 300 MG TAB PO (10:04)
[2017-09-15] MEDS: FUROSEMIDE 20 MG TAB PO (10:04)
[2017-09-15] MEDS: PREGABALIN 50 MG CAP (LYRICA) PO ×2 (10:05→21:00)
[2017-09-15] MEDS: MULTIVITAMINS/MINERALS THERAP 1 TAB PO (10:05)
[2017-09-15] MEDS: PYRIDOSTIGMINE 60 MG TAB PO ×3 (10:13→20:57)
[2017-09-15 12:12] LABS: BEDSIDE GLUCOSE 154 MG/DL (83-110)
[2017-09-15 16:58] LABS: BEDSIDE GLUCOSE 122 MG/DL (83-110)
[2017-09-15 19:53] LABS: BEDSIDE GLUCOSE 321 MG/DL (83-110)
[2017-09-15] MEDS: NORCO, ANEXSIA 5/325MG TABLET (HYDROcodone/ACETAMINOPHEN) PO (20:56)
[2017-09-15] MEDS: LEVEMIR (INSULIN DETEMIR) 1 UNITS/0.01ML SC (20:57)
[2017-09-15] MEDS: SINEMET 25-250 TABLET PO (20:57)
[2017-09-16] MEDS: HEPARIN SOD (PORCINE) 5000 UNITS/ML VIAL SC ×3 (05:19→21:06)
[2017-09-16 06:06] LABS: BEDSIDE GLUCOSE 134 MG/DL (83-110)
[2017-09-16] MEDS: PREGABALIN 50 MG CAP (LYRICA) PO ×2 (09:51→21:06)
[2017-09-16] MEDS: PRAVASTATIN 20 MG TAB PO (09:51)
[2017-09-16] MEDS: MULTIVITAMINS/MINERALS THERAP 1 TAB PO (09:51)
[2017-09-16] MEDS: HumaLOG INSULIN (NovoLOG) PER UNIT SC ×4 (09:51→20:57)
[2017-09-16] MEDS: GABAPENTIN 400 MG CAP PO ×2 (09:52→21:06)
[2017-09-16] MEDS: OMEPRAZOLE 20 MG CAP PO (09:52)
[2017-09-16] MEDS: PYRIDOSTIGMINE 60 MG TAB PO ×3 (09:52→21:07)
[2017-09-16] MEDS: DULoxetine 30 MG CAP (CYMBALTA) PO (09:52)
[2017-09-16] MEDS: ALLOPURINOL 300 MG TAB PO (09:52)
[2017-09-16] MEDS: ASPIRIN 81 MG ENTERIC TAB PO (09:52)
[2017-09-16] MEDS: FUROSEMIDE 20 MG TAB PO (09:53)
[2017-09-16] MEDS ORDERED: FLEET ENEMA PR (10:00)
[2017-09-16 11:23] LABS: BEDSIDE GLUCOSE 226 MG/DL (83-110)
[2017-09-16 12:12] LABS: KETONE, URINE AUTO RFX TRACE mg/dL (NEGATIVE); MUCUS, URINE RFX SMALL (NEGATIVE); RBC, URINE AUTO RFX 1 /HPF (0-3); SPECIFIC GRAVITY UR AUTO RFX 1.018 (1.002-1.035); SQUAM EPITHELIAL CELL UR AURFX 0 /HPF (0-6)
[2017-09-16 12:14] LABS: LEUKOCYTE ESTERASE UR AUTO RFX 2+ (NEGATIVE); NITRITE, URINE AUTO RFX POSITIVE (NEGATIVE); WBC, URINE AUTO RFX 163 /HPF (0-3)
[2017-09-16] MEDS: MOM 30ML SUSPENSION UDC PO (12:38)
[2017-09-16] MEDS: DOCUSATE SODIUM 100 MG CAP PO (12:38)
[2017-09-16 16:44] LABS: BEDSIDE GLUCOSE 207 MG/DL (83-110)
[2017-09-16 20:00] LABS: BEDSIDE GLUCOSE 221 MG/DL (83-110)
[2017-09-16] MEDS: BACTRIM 160MG/800MG DS TAB PO (21:06)
[2017-09-16] MEDS: LEVEMIR (INSULIN DETEMIR) 1 UNITS/0.01ML SC (21:06)
[2017-09-16] MEDS: SINEMET 25-250 TABLET PO (21:06)
[2017-09-16] MEDS: NORCO, ANEXSIA 5/325MG TABLET (HYDROcodone/ACETAMINOPHEN) PO (21:08)
[2017-09-17] MEDS: MENTHOL 2% TOP ×3 (01:45→21:19)
[2017-09-17] MEDS: HEPARIN SOD (PORCINE) 5000 UNITS/ML VIAL SC ×3 (05:23→21:19)
[2017-09-17 06:03] LABS: BEDSIDE GLUCOSE 175 MG/DL (83-110)
[2017-09-17] MEDS: OMEPRAZOLE 20 MG CAP PO (08:56)
[2017-09-17] MEDS: PYRIDOSTIGMINE 60 MG TAB PO ×3 (08:56→21:20)
[2017-09-17] MEDS: FUROSEMIDE 20 MG TAB PO (08:56)
[2017-09-17] MEDS: HumaLOG INSULIN (NovoLOG) PER UNIT SC ×4 (08:56→21:21)
[2017-09-17] MEDS: ASPIRIN 81 MG ENTERIC TAB PO (08:56)
[2017-09-17] MEDS: DULoxetine 30 MG CAP (CYMBALTA) PO (08:56)
[2017-09-17] MEDS: MULTIVITAMINS/MINERALS THERAP 1 TAB PO (08:56)
[2017-09-17] MEDS: BACTRIM 160MG/800MG DS TAB PO ×2 (08:56→21:20)
[2017-09-17] MEDS: PREGABALIN 50 MG CAP (LYRICA) PO ×2 (08:57→21:20)
[2017-09-17] MEDS: PRAVASTATIN 20 MG TAB PO (08:57)
[2017-09-17] MEDS: ALLOPURINOL 300 MG TAB PO (08:57)
[2017-09-17] MEDS: GABAPENTIN 400 MG CAP PO ×2 (08:57→21:20)
[2017-09-17 11:47] LABS: BEDSIDE GLUCOSE 157 MG/DL (83-110)
[2017-09-17 12:44] LABS: ALBUMIN 3.44 GM/DL (3.29-5.55); ALBUMIN % 51.4 % (55.8-66.1); ALPHA-2-GLOBULINS 1.03 GM/DL (0.42-0.99); ALPHA-2-GLOBULINS % 15.3 % (7.1-11.8); BETA-1-GLOBULINS 0.42 GM/DL (0.28-0.60); BETA-1-GLOBULINS % 6.3 % (4.7-7.2); BETA-2-GLOBULINS 0.47 GM/DL (0.19-0.55); GAMMA GLOBULINS 0.94 GM/DL (0.65-1.58)
[2017-09-17 16:58] LABS: BEDSIDE GLUCOSE 201 MG/DL (83-110)
[2017-09-17 19:51] LABS: BEDSIDE GLUCOSE 275 MG/DL (83-110)
[2017-09-17] MEDS: LEVEMIR (INSULIN DETEMIR) 1 UNITS/0.01ML SC (21:20)
[2017-09-17] MEDS: SINEMET 25-250 TABLET PO (21:20)
[2017-09-17] MEDS: ACETAMINOPHEN TAB 650MG DOSE (2X325MG) PO (22:43)
[2017-09-18] MEDS: HEPARIN SOD (PORCINE) 5000 UNITS/ML VIAL SC ×3 (05:05→20:56)
[2017-09-18 05:53] LABS: BEDSIDE GLUCOSE 148 MG/DL (83-110)
[2017-09-18 08:13] LABS: COPPER PLASMA 103 ug/dL (72-166)
[2017-09-18] MEDS: PRAVASTATIN 20 MG TAB PO (08:46)
[2017-09-18] MEDS: OMEPRAZOLE 20 MG CAP PO (08:46)
[2017-09-18] MEDS: HumaLOG INSULIN (NovoLOG) PER UNIT SC ×4 (08:46→20:35)
[2017-09-18] MEDS: FUROSEMIDE 20 MG TAB PO (08:47)
[2017-09-18] MEDS: GABAPENTIN 400 MG CAP PO ×2 (08:47→20:55)
[2017-09-18] MEDS: DULoxetine 30 MG CAP (CYMBALTA) PO (08:47)
[2017-09-18] MEDS: MULTIVITAMINS/MINERALS THERAP 1 TAB PO (08:47)
[2017-09-18] MEDS: BACTRIM 160MG/800MG DS TAB PO (08:47)
[2017-09-18] MEDS: ASPIRIN 81 MG ENTERIC TAB PO (08:47)
[2017-09-18] MEDS: PREGABALIN 50 MG CAP (LYRICA) PO ×2 (08:47→20:55)
[2017-09-18] MEDS: ALLOPURINOL 300 MG TAB PO (08:47)
[2017-09-18] MEDS: PYRIDOSTIGMINE 60 MG TAB PO ×3 (08:49→20:58)
[2017-09-18 11:46] LABS: BEDSIDE GLUCOSE 255 MG/DL (83-110)
[2017-09-18] MEDS: NITROFURANTOIN (MACROBID) 100 MG CAP PO ×2 (12:07→20:55)
[2017-09-18 16:36] LABS: BEDSIDE GLUCOSE 122 MG/DL (83-110)
[2017-09-18 19:38] LABS: BEDSIDE GLUCOSE 163 MG/DL (83-110)
[2017-09-18] MEDS: SINEMET 25-250 TABLET PO (20:55)
[2017-09-18] MEDS: LEVEMIR (INSULIN DETEMIR) 1 UNITS/0.01ML SC (20:56)
[2017-09-19] MEDS: HEPARIN SOD (PORCINE) 5000 UNITS/ML VIAL SC ×4 (05:45→20:19)
[2017-09-19 06:51] LABS: BEDSIDE GLUCOSE 131 MG/DL (83-110)
[2017-09-19] MEDS: HumaLOG INSULIN (NovoLOG) PER UNIT SC ×4 (08:15→20:20)
[2017-09-19] MEDS: FUROSEMIDE 20 MG TAB PO (08:17)
[2017-09-19] MEDS: OMEPRAZOLE 20 MG CAP PO (08:17)
[2017-09-19] MEDS: NITROFURANTOIN (MACROBID) 100 MG CAP PO ×2 (08:17→20:21)
[2017-09-19] MEDS: DULoxetine 30 MG CAP (CYMBALTA) PO (08:17)
[2017-09-19] MEDS: GABAPENTIN 400 MG CAP PO ×2 (08:17→20:21)
[2017-09-19] MEDS: PREGABALIN 50 MG CAP (LYRICA) PO ×2 (08:17→20:20)
[2017-09-19] MEDS: MULTIVITAMINS/MINERALS THERAP 1 TAB PO (08:17)
[2017-09-19] MEDS: ASPIRIN 81 MG ENTERIC TAB PO (08:17)
[2017-09-19] MEDS: PYRIDOSTIGMINE 60 MG TAB PO ×3 (08:17→20:20)
[2017-09-19] MEDS: PRAVASTATIN 20 MG TAB PO (08:17)
[2017-09-19] MEDS: ALLOPURINOL 300 MG TAB PO (08:17)
[2017-09-19 11:29] LABS: BEDSIDE GLUCOSE 279 MG/DL (83-110)
[2017-09-19 16:45] LABS: BEDSIDE GLUCOSE 114 MG/DL (83-110)
[2017-09-19 20:03] LABS: BEDSIDE GLUCOSE 278 MG/DL (83-110)
[2017-09-19] MEDS: LEVEMIR (INSULIN DETEMIR) 1 UNITS/0.01ML SC (20:20)
[2017-09-19] MEDS: SINEMET 25-250 TABLET PO (20:21)
[2017-09-19] MEDS: MENTHOL 2% TOP (22:22)
[2017-09-19] MEDS: NORCO, ANEXSIA 5/325MG TABLET (HYDROcodone/ACETAMINOPHEN) PO (22:25)
[2017-09-20] MEDS: HEPARIN SOD (PORCINE) 5000 UNITS/ML VIAL SC ×3 (06:07→20:25)
[2017-09-20 06:26] LABS: BEDSIDE GLUCOSE 170 MG/DL (83-110)
[2017-09-20] MEDS: GABAPENTIN 400 MG CAP PO ×2 (09:29→20:26)
[2017-09-20] MEDS: MULTIVITAMINS/MINERALS THERAP 1 TAB PO (09:29)
[2017-09-20] MEDS: PYRIDOSTIGMINE 60 MG TAB PO ×3 (09:29→20:26)
[2017-09-20] MEDS: NITROFURANTOIN (MACROBID) 100 MG CAP PO ×2 (09:29→20:26)
[2017-09-20] MEDS: ALLOPURINOL 300 MG TAB PO (09:29)
[2017-09-20] MEDS: HumaLOG INSULIN (NovoLOG) PER UNIT SC ×4 (09:29→19:59)
[2017-09-20] MEDS: PREGABALIN 50 MG CAP (LYRICA) PO ×2 (09:30→20:26)
[2017-09-20] MEDS: PRAVASTATIN 20 MG TAB PO (09:30)
[2017-09-20] MEDS: DULoxetine 30 MG CAP (CYMBALTA) PO (09:30)
[2017-09-20] MEDS: ASPIRIN 81 MG ENTERIC TAB PO (09:30)
[2017-09-20] MEDS: FUROSEMIDE 20 MG TAB PO (09:30)
[2017-09-20] MEDS: OMEPRAZOLE 20 MG CAP PO (09:30)
[2017-09-20 11:59] LABS: BEDSIDE GLUCOSE 271 MG/DL (83-110)
[2017-09-20] MEDS: MENTHOL 2% TOP ×2 (13:03→21:49)
[2017-09-20 16:57] LABS: BEDSIDE GLUCOSE 384 MG/DL (83-110)
[2017-09-20] MEDS: NORCO, ANEXSIA 5/325MG TABLET (HYDROcodone/ACETAMINOPHEN) PO (17:26)
[2017-09-20 19:57] LABS: BEDSIDE GLUCOSE 231 MG/DL (83-110)
[2017-09-20] MEDS: LEVEMIR (INSULIN DETEMIR) 1 UNITS/0.01ML SC (20:25)
[2017-09-20] MEDS: SINEMET 25-250 TABLET PO (20:26)
[2017-09-20] MEDS: ACETAMINOPHEN TAB 650MG DOSE (2X325MG) PO (22:04)
[2017-09-21] MEDS: HEPARIN SOD (PORCINE) 5000 UNITS/ML VIAL SC ×3 (06:02→21:06)
[2017-09-21 06:32] LABS: BEDSIDE GLUCOSE 118 MG/DL (83-110)
[2017-09-21] MEDS: HumaLOG INSULIN (NovoLOG) PER UNIT SC ×4 (08:32→21:07)
[2017-09-21] MEDS: NITROFURANTOIN (MACROBID) 100 MG CAP PO ×2 (08:32→21:07)
[2017-09-21] MEDS: GABAPENTIN 400 MG CAP PO ×2 (08:33→21:07)
[2017-09-21] MEDS: OMEPRAZOLE 20 MG CAP PO (08:33)
[2017-09-21] MEDS: PREGABALIN 50 MG CAP (LYRICA) PO ×2 (08:33→21:06)
[2017-09-21] MEDS: ASPIRIN 81 MG ENTERIC TAB PO (08:34)
[2017-09-21] MEDS: MULTIVITAMINS/MINERALS THERAP 1 TAB PO (08:34)
[2017-09-21] MEDS: FUROSEMIDE 20 MG TAB PO (08:34)
[2017-09-21] MEDS: ALLOPURINOL 300 MG TAB PO (08:34)
[2017-09-21] MEDS: PRAVASTATIN 20 MG TAB PO (08:34)
[2017-09-21] MEDS: PYRIDOSTIGMINE 60 MG TAB PO ×3 (08:34→21:08)
[2017-09-21] MEDS: DULoxetine 30 MG CAP (CYMBALTA) PO (08:35)
[2017-09-21 11:59] LABS: BEDSIDE GLUCOSE 197 MG/DL (83-110)
[2017-09-21] MEDS: NORCO, ANEXSIA 5/325MG TABLET (HYDROcodone/ACETAMINOPHEN) PO ×2 (12:58→22:11)
[2017-09-21 16:46] LABS: BEDSIDE GLUCOSE 311 MG/DL (83-110)
[2017-09-21 20:29] LABS: BEDSIDE GLUCOSE 360 MG/DL (83-110)
[2017-09-21] MEDS: SINEMET 25-250 TABLET PO (21:06)
[2017-09-21] MEDS: LEVEMIR (INSULIN DETEMIR) 1 UNITS/0.01ML SC (21:07)
[2017-09-22] MEDS: GABAPENTIN 400 MG CAP PO ×3 (02:31→21:04)
[2017-09-22] MEDS: HEPARIN SOD (PORCINE) 5000 UNITS/ML VIAL SC ×3 (06:01→21:03)
[2017-09-22 06:24] LABS: BEDSIDE GLUCOSE 139 MG/DL (83-110)
[2017-09-22] MEDS: MULTIVITAMINS/MINERALS THERAP 1 TAB PO (09:13)
[2017-09-22] MEDS: PRAVASTATIN 20 MG TAB PO (09:13)
[2017-09-22] MEDS: ASPIRIN 81 MG ENTERIC TAB PO (09:13)
[2017-09-22] MEDS: PREGABALIN 50 MG CAP (LYRICA) PO ×2 (09:13→21:04)
[2017-09-22] MEDS: OMEPRAZOLE 20 MG CAP PO (09:13)
[2017-09-22] MEDS: DULoxetine 30 MG CAP (CYMBALTA) PO (09:13)
[2017-09-22] MEDS: ALLOPURINOL 300 MG TAB PO (09:14)
[2017-09-22] MEDS: HumaLOG INSULIN (NovoLOG) PER UNIT SC ×4 (09:14→19:51)
[2017-09-22] MEDS: FUROSEMIDE 20 MG TAB PO (09:14)
[2017-09-22 11:37] LABS: BEDSIDE GLUCOSE 177 MG/DL (83-110)
[2017-09-22] MEDS: NITROFURANTOIN (MACROBID) 100 MG CAP PO ×2 (12:18→21:04)
[2017-09-22] MEDS: PYRIDOSTIGMINE 60 MG TAB PO ×3 (12:18→21:04)
[2017-09-22] MEDS: NORCO, ANEXSIA 5/325MG TABLET (HYDROcodone/ACETAMINOPHEN) PO (17:03)
[2017-09-22 17:05] LABS: BEDSIDE GLUCOSE 294 MG/DL (83-110)
[2017-09-22 19:42] LABS: BEDSIDE GLUCOSE 216 MG/DL (83-110)
[2017-09-22] MEDS: LEVEMIR (INSULIN DETEMIR) 1 UNITS/0.01ML SC (21:03)
[2017-09-22] MEDS: SINEMET 25-250 TABLET PO (21:04)
[2017-09-22] MEDS: ACETAMINOPHEN TAB 650MG DOSE (2X325MG) PO (21:05)
[2017-09-23] MEDS: HEPARIN SOD (PORCINE) 5000 UNITS/ML VIAL SC ×3 (05:15→20:27)
[2017-09-23 05:37] LABS: BEDSIDE GLUCOSE 148 MG/DL (83-110)
[2017-09-23] MEDS: HumaLOG INSULIN (NovoLOG) PER UNIT SC ×4 (09:45→19:59)
[2017-09-23] MEDS: PREGABALIN 50 MG CAP (LYRICA) PO ×2 (09:45→20:28)
[2017-09-23] MEDS: ALLOPURINOL 300 MG TAB PO (09:45)
[2017-09-23] MEDS: PYRIDOSTIGMINE 60 MG TAB PO ×3 (09:46→20:28)
[2017-09-23] MEDS: OMEPRAZOLE 20 MG CAP PO (09:46)
[2017-09-23] MEDS: FUROSEMIDE 20 MG TAB PO (09:47)
[2017-09-23] MEDS: PRAVASTATIN 20 MG TAB PO (09:47)
[2017-09-23] MEDS: GABAPENTIN 400 MG CAP PO ×2 (09:47→20:28)
[2017-09-23] MEDS: DULoxetine 30 MG CAP (CYMBALTA) PO (09:47)
[2017-09-23] MEDS: MULTIVITAMINS/MINERALS THERAP 1 TAB PO (09:47)
[2017-09-23] MEDS: ASPIRIN 81 MG ENTERIC TAB PO (09:47)
[2017-09-23] MEDS: NITROFURANTOIN (MACROBID) 100 MG CAP PO ×2 (09:48→20:27)
[2017-09-23 10:33] LABS: HEMATOCRIT 38.2 % (36.0-47.0); MEAN CORPUSCULAR HEMOGLOBIN 29.6 pg (27.0-33.0); MEAN CORPUSCULAR HGB CONC 31.4 g/dl (32.0-36.5); MEAN CORPUSCULAR VOLUME 94.1 fl (80.0-96.0); PLATELET COUNT, AUTOMATED 277 10^3/uL (150-450); RED BLOOD COUNT 4.06 10^6/uL (4.00-5.40); RED CELL DISTRIBUTION WIDTH 13.6 % (11.5-14.5); WHITE BLOOD COUNT 8.2 10^3/uL (4.0-10.0)
[2017-09-23 10:57] LABS: ANION GAP 7 MEQ/L (8-16); BLOOD UREA NITROGEN 18 MG/DL (7-18); CALCIUM LEVEL 8.9 MG/DL (8.8-10.2); CARBON DIOXIDE LEVEL 29 MEQ/L (21-32); CHLORIDE LEVEL 106 MEQ/L (98-107); CREATININE FOR GFR 0.96 MG/DL (0.55-1.30); GLOMERULAR FILTRATION RATE 59.1 (>32); GLUCOSE, FASTING 213 MG/DL (70-100); POTASSIUM SERUM 4.6 MEQ/L (3.5-5.1); SODIUM LEVEL 142 MEQ/L (136-145)
[2017-09-23 11:27] LABS: BEDSIDE GLUCOSE 279 MG/DL (83-110)
[2017-09-23 16:48] LABS: BEDSIDE GLUCOSE 265 MG/DL (83-110)
[2017-09-23 19:43] LABS: BEDSIDE GLUCOSE 225 MG/DL (83-110)
[2017-09-23] MEDS: SINEMET 25-250 TABLET PO (20:28)
[2017-09-23] MEDS: LEVEMIR (INSULIN DETEMIR) 1 UNITS/0.01ML SC (20:29)
[2017-09-24] MEDS: HEPARIN SOD (PORCINE) 5000 UNITS/ML VIAL SC ×3 (06:03→21:45)
[2017-09-24] MEDS: ACETAMINOPHEN TAB 650MG DOSE (2X325MG) PO (06:03)
[2017-09-24 06:04] LABS: BEDSIDE GLUCOSE 124 MG/DL (83-110)
[2017-09-24] MEDS: HumaLOG INSULIN (NovoLOG) PER UNIT SC ×4 (08:09→20:28)
[2017-09-24] MEDS: ALLOPURINOL 300 MG TAB PO (08:09)
[2017-09-24] MEDS: PRAVASTATIN 20 MG TAB PO (08:09)
[2017-09-24] MEDS: NITROFURANTOIN (MACROBID) 100 MG CAP PO ×2 (08:09→20:35)
[2017-09-24] MEDS: ASPIRIN 81 MG ENTERIC TAB PO (08:09)
[2017-09-24] MEDS: PREGABALIN 50 MG CAP (LYRICA) PO ×2 (08:09→20:35)
[2017-09-24] MEDS: OMEPRAZOLE 20 MG CAP PO (08:09)
[2017-09-24] MEDS: MULTIVITAMINS/MINERALS THERAP 1 TAB PO (08:10)
[2017-09-24] MEDS: DULoxetine 30 MG CAP (CYMBALTA) PO (08:10)
[2017-09-24] MEDS: PYRIDOSTIGMINE 60 MG TAB PO ×3 (08:10→20:36)
[2017-09-24] MEDS: GABAPENTIN 400 MG CAP PO ×2 (08:10→20:35)
[2017-09-24] MEDS: FUROSEMIDE 20 MG TAB PO (08:10)
[2017-09-24 11:47] LABS: BEDSIDE GLUCOSE 261 MG/DL (83-110)
[2017-09-24] MEDS: NORCO, ANEXSIA 5/325MG TABLET (HYDROcodone/ACETAMINOPHEN) PO ×2 (12:26→20:40)
[2017-09-24 17:24] LABS: BEDSIDE GLUCOSE 200 MG/DL (83-110)
[2017-09-24 19:54] LABS: BEDSIDE GLUCOSE 197 MG/DL (83-110)
[2017-09-24] MEDS: SINEMET 25-250 TABLET PO (20:35)
[2017-09-24] MEDS: LEVEMIR (INSULIN DETEMIR) 1 UNITS/0.01ML SC (20:36)
[2017-09-25] MEDS: HEPARIN SOD (PORCINE) 5000 UNITS/ML VIAL SC ×3 (05:15→20:50)
[2017-09-25 06:59] LABS: BEDSIDE GLUCOSE 177 MG/DL (83-110)
[2017-09-25] MEDS: HumaLOG INSULIN (NovoLOG) PER UNIT SC ×4 (07:51→20:43)
[2017-09-25] MEDS: NORCO, ANEXSIA 5/325MG TABLET (HYDROcodone/ACETAMINOPHEN) PO ×2 (07:54→16:54)
[2017-09-25] MEDS: PYRIDOSTIGMINE 60 MG TAB PO ×3 (08:57→20:51)
[2017-09-25] MEDS: NITROFURANTOIN (MACROBID) 100 MG CAP PO ×2 (08:57→20:51)
[2017-09-25] MEDS: PREGABALIN 50 MG CAP (LYRICA) PO ×2 (08:57→20:51)
[2017-09-25] MEDS: OMEPRAZOLE 20 MG CAP PO (08:57)
[2017-09-25] MEDS: FUROSEMIDE 20 MG TAB PO (08:58)
[2017-09-25] MEDS: DULoxetine 30 MG CAP (CYMBALTA) PO (08:58)
[2017-09-25] MEDS: PRAVASTATIN 20 MG TAB PO (08:58)
[2017-09-25] MEDS: GABAPENTIN 400 MG CAP PO ×2 (08:58→20:51)
[2017-09-25] MEDS: ALLOPURINOL 300 MG TAB PO (08:59)
[2017-09-25] MEDS: MULTIVITAMINS/MINERALS THERAP 1 TAB PO (08:59)
[2017-09-25] MEDS: ASPIRIN 81 MG ENTERIC TAB PO (08:59)
[2017-09-25 11:23] LABS: BEDSIDE GLUCOSE 182 MG/DL (83-110)
[2017-09-25 16:49] LABS: BEDSIDE GLUCOSE 218 MG/DL (83-110)
[2017-09-25 20:10] LABS: BEDSIDE GLUCOSE 211 MG/DL (83-110)
[2017-09-25] MEDS: LEVEMIR (INSULIN DETEMIR) 1 UNITS/0.01ML SC (20:52)
[2017-09-25] MEDS: SINEMET 25-250 TABLET PO (20:52)
[2017-09-26] MEDS: HEPARIN SOD (PORCINE) 5000 UNITS/ML VIAL SC ×3 (06:03→20:40)
[2017-09-26 06:57] LABS: BEDSIDE GLUCOSE 164 MG/DL (83-110)
[2017-09-26] MEDS: ALLOPURINOL 300 MG TAB PO (08:00)
[2017-09-26] MEDS: PREGABALIN 50 MG CAP (LYRICA) PO ×2 (08:00→20:38)
[2017-09-26] MEDS: HumaLOG INSULIN (NovoLOG) PER UNIT SC ×4 (08:00→20:38)
[2017-09-26] MEDS: PRAVASTATIN 20 MG TAB PO (08:00)
[2017-09-26] MEDS: ASPIRIN 81 MG ENTERIC TAB PO (08:00)
[2017-09-26] MEDS: FUROSEMIDE 20 MG TAB PO (08:00)
[2017-09-26] MEDS: MULTIVITAMINS/MINERALS THERAP 1 TAB PO (08:00)
[2017-09-26] MEDS: NITROFURANTOIN (MACROBID) 100 MG CAP PO (08:00)
[2017-09-26] MEDS: GABAPENTIN 400 MG CAP PO ×2 (08:00→20:37)
[2017-09-26] MEDS: OMEPRAZOLE 20 MG CAP PO (08:00)
[2017-09-26] MEDS: DULoxetine 30 MG CAP (CYMBALTA) PO (08:00)
[2017-09-26] MEDS: PYRIDOSTIGMINE 60 MG TAB PO ×3 (08:01→20:37)
[2017-09-26] MEDS: NORCO, ANEXSIA 5/325MG TABLET (HYDROcodone/ACETAMINOPHEN) PO (10:17)
[2017-09-26 11:38] LABS: BEDSIDE GLUCOSE 130 MG/DL (83-110)
[2017-09-26 16:35] LABS: BEDSIDE GLUCOSE 222 MG/DL (83-110)
[2017-09-26 20:31] LABS: BEDSIDE GLUCOSE 222 MG/DL (83-110)
[2017-09-26] MEDS: SINEMET 25-250 TABLET PO (20:37)
[2017-09-26] MEDS: LEVEMIR (INSULIN DETEMIR) 1 UNITS/0.01ML SC (20:39)
[2017-09-27] MEDS: HEPARIN SOD (PORCINE) 5000 UNITS/ML VIAL SC ×3 (05:37→21:32)
[2017-09-27 06:35] LABS: BEDSIDE GLUCOSE 135 MG/DL (83-110)
[2017-09-27] MEDS: ASPIRIN 81 MG ENTERIC TAB PO (08:30)
[2017-09-27] MEDS: ALLOPURINOL 300 MG TAB PO (08:30)
[2017-09-27] MEDS: GABAPENTIN 400 MG CAP PO ×2 (08:30→21:31)
[2017-09-27] MEDS: DULoxetine 30 MG CAP (CYMBALTA) PO (08:30)
[2017-09-27] MEDS: FUROSEMIDE 20 MG TAB PO (08:30)
[2017-09-27] MEDS: HumaLOG INSULIN (NovoLOG) PER UNIT SC ×4 (08:30→21:31)
[2017-09-27] MEDS: PYRIDOSTIGMINE 60 MG TAB PO ×3 (08:31→21:31)
[2017-09-27] MEDS: MULTIVITAMINS/MINERALS THERAP 1 TAB PO (08:31)
[2017-09-27] MEDS: OMEPRAZOLE 20 MG CAP PO (08:31)
[2017-09-27] MEDS: PRAVASTATIN 20 MG TAB PO (08:31)
[2017-09-27] MEDS: PREGABALIN 50 MG CAP (LYRICA) PO ×2 (08:31→21:31)
[2017-09-27 11:35] LABS: BEDSIDE GLUCOSE 228 MG/DL (83-110)
[2017-09-27 16:46] LABS: BEDSIDE GLUCOSE 180 MG/DL (83-110)
[2017-09-27 20:19] LABS: BEDSIDE GLUCOSE 319 MG/DL (83-110)
[2017-09-27] MEDS: SINEMET 25-250 TABLET PO (21:31)
[2017-09-27] MEDS: LEVEMIR (INSULIN DETEMIR) 1 UNITS/0.01ML SC (21:32)
[2017-09-28] MEDS: HEPARIN SOD (PORCINE) 5000 UNITS/ML VIAL SC ×3 (05:23→21:06)
[2017-09-28 06:44] LABS: BEDSIDE GLUCOSE 124 MG/DL (83-110)
[2017-09-28] MEDS: ASPIRIN 81 MG ENTERIC TAB PO (08:07)
[2017-09-28] MEDS: PREGABALIN 50 MG CAP (LYRICA) PO ×2 (08:07→21:04)
[2017-09-28] MEDS: HumaLOG INSULIN (NovoLOG) PER UNIT SC ×4 (08:07→21:05)
[2017-09-28] MEDS: PYRIDOSTIGMINE 60 MG TAB PO ×3 (08:07→21:05)
[2017-09-28] MEDS: MULTIVITAMINS/MINERALS THERAP 1 TAB PO (08:07)
[2017-09-28] MEDS: OMEPRAZOLE 20 MG CAP PO (08:07)
[2017-09-28] MEDS: FUROSEMIDE 20 MG TAB PO (08:08)
[2017-09-28] MEDS: DULoxetine 30 MG CAP (CYMBALTA) PO (08:08)
[2017-09-28] MEDS: GABAPENTIN 400 MG CAP PO ×2 (08:08→21:05)
[2017-09-28] MEDS: ALLOPURINOL 300 MG TAB PO (08:08)
[2017-09-28] MEDS: PRAVASTATIN 20 MG TAB PO (08:08)
[2017-09-28 11:44] LABS: BEDSIDE GLUCOSE 172 MG/DL (83-110)
[2017-09-28 16:43] LABS: BEDSIDE GLUCOSE 284 MG/DL (83-110)
[2017-09-28 20:43] LABS: BEDSIDE GLUCOSE 208 MG/DL (83-110)
[2017-09-28] MEDS: SINEMET 25-250 TABLET PO (21:05)
[2017-09-28] MEDS: LEVEMIR (INSULIN DETEMIR) 1 UNITS/0.01ML SC (21:05)
[2017-09-28] MEDS: NORCO, ANEXSIA 5/325MG TABLET (HYDROcodone/ACETAMINOPHEN) PO (21:18)
[2017-09-29] MEDS: HEPARIN SOD (PORCINE) 5000 UNITS/ML VIAL SC (05:38)
[2017-09-29 06:01] LABS: BEDSIDE GLUCOSE 109 MG/DL (83-110)
[2017-09-29] MEDS: HumaLOG INSULIN (NovoLOG) PER UNIT SC ×2 (07:54→12:00)
[2017-09-29] MEDS: GABAPENTIN 400 MG CAP PO (08:42)
[2017-09-29] MEDS: DULoxetine 30 MG CAP (CYMBALTA) PO (08:42)
[2017-09-29] MEDS: ALLOPURINOL 300 MG TAB PO (08:43)
[2017-09-29] MEDS: PREGABALIN 50 MG CAP (LYRICA) PO (08:43)
[2017-09-29] MEDS: FUROSEMIDE 20 MG TAB PO (08:43)
[2017-09-29] MEDS: OMEPRAZOLE 20 MG CAP PO (08:43)
[2017-09-29] MEDS: ASPIRIN 81 MG ENTERIC TAB PO (08:44)
[2017-09-29] MEDS: MULTIVITAMINS/MINERALS THERAP 1 TAB PO (08:44)
[2017-09-29] MEDS: PYRIDOSTIGMINE 60 MG TAB PO (08:44)
[2017-09-29] MEDS: PRAVASTATIN 20 MG TAB PO (08:45)
[2017-09-29 09:03] LABS: HEMATOCRIT 35.2 % (36.0-47.0); HEMOGLOBIN 11.4 g/dl (12.0-15.5); MEAN CORPUSCULAR HEMOGLOBIN 29.8 pg (27.0-33.0); MEAN CORPUSCULAR HGB CONC 32.4 g/dl (32.0-36.5); MEAN CORPUSCULAR VOLUME 91.9 fl (80.0-96.0); PLATELET COUNT, AUTOMATED 273 10^3/uL (150-450); RED BLOOD COUNT 3.83 10^6/uL (4.00-5.40); RED CELL DISTRIBUTION WIDTH 13.7 % (11.5-14.5); WHITE BLOOD COUNT 8.2 10^3/uL (4.0-10.0)
[2017-09-29 09:30] LABS: ANION GAP 6 MEQ/L (8-16); BLOOD UREA NITROGEN 15 MG/DL (7-18); CALCIUM LEVEL 8.7 MG/DL (8.8-10.2); CARBON DIOXIDE LEVEL 31 MEQ/L (21-32); CHLORIDE LEVEL 107 MEQ/L (98-107); CREATININE FOR GFR 0.72 MG/DL (0.55-1.30); GLOMERULAR FILTRATION RATE > 60.0 (>32); GLUCOSE, FASTING 92 MG/DL (70-100); POTASSIUM SERUM 3.9 MEQ/L (3.5-5.1); SODIUM LEVEL 144 MEQ/L (136-145)
[2017-09-29 11:25] LABS: BEDSIDE GLUCOSE 254 MG/DL (83-110)
== END 2017-09-29 13:33 | DRG 57 ==
LOC: M MS4PR 09-08 14:19 → M MSPAV 09-09 14:05 → M ED 15:47 → M ED INP 18:38 → M MS4PR 21:40
DX: G20 Parkinson's disease (principal); Z68.43 Body mass index [BMI] 50.0-59.9, adult; E66.01 Morbid (severe) obesity due to excess calories; R26.2 Difficulty in walking, not elsewhere classified; M10.9 Gout, unspecified; M54.5 Low back pain; E78.5 Hyperlipidemia, unspecified; K21.9 Gastro-esophageal reflux disease without esophagitis; F39 Unspecified mood [affective] disorder; G70.00 Myasthenia gravis without (acute) exacerbation; I89.0 Lymphedema, not elsewhere classified; R29.6 Repeated falls; E11.40 Type 2 diabetes mellitus with diabetic neuropathy, unspecified; F32.9 Major depressive disorder, single episode, unspecified; M19.90 Unspecified osteoarthritis, unspecified site; Z79.899 Other long term (current) drug therapy; Z79.82 Long term (current) use of aspirin; Z79.4 Long term (current) use of insulin; Z88.0 Allergy status to penicillin; G25.81 Restless legs syndrome

== ENCOUNTER → 2017-10-01 | Outpatient (REF) ==
[2017-10-01 09:30] LABS: ESTIMATED AVERAGE GLUCOSE 137 MG/DL (60-110); HEMOGLOBIN A1c 6.4 %
== END ==
LOC: SKLAB7 08:00
DX: E11.9 Type 2 diabetes mellitus without complications (principal)

== ENCOUNTER → 2017-10-16 | Outpatient (REF) | payer MEDICARE, MEDICAID ==
[2017-10-16 13:41] LABS: HEMATOCRIT 34.1 % (36.0-47.0); HEMOGLOBIN 10.9 g/dl (12.0-15.5); MEAN CORPUSCULAR HEMOGLOBIN 29.3 pg (27.0-33.0); MEAN CORPUSCULAR VOLUME 91.7 fl (80.0-96.0); PLATELET COUNT, AUTOMATED 279 10^3/uL (150-450); RED BLOOD COUNT 3.72 10^6/uL (4.00-5.40); RED CELL DISTRIBUTION WIDTH 13.2 % (11.5-14.5); WHITE BLOOD COUNT 7.9 10^3/uL (4.0-10.0)
[2017-10-16 14:21] LABS: ANION GAP 6 MEQ/L (8-16); BLOOD UREA NITROGEN 14 MG/DL (7-18); C REACTIVE PROTEIN QUANTITATIV 1.48 MG/DL (0.00-0.30); CALCIUM LEVEL 8.6 MG/DL (8.8-10.2); CARBON DIOXIDE LEVEL 31 MEQ/L (21-32); CHLORIDE LEVEL 103 MEQ/L (98-107); CREATININE FOR GFR 0.91 MG/DL (0.55-1.30); GLOMERULAR FILTRATION RATE > 60.0 (>32); GLUCOSE, FASTING 217 MG/DL (70-100); NT-PRO BNP 200 PG/ML (<450); POTASSIUM SERUM 4.2 MEQ/L (3.5-5.1); SODIUM LEVEL 140 MEQ/L (136-145)
[2017-10-16 14:22] LABS: ERYTHROCYTE SEDIMENTATION RATE 52 mm/hr (0-30)
[2017-10-16 22:12] LABS: APPEARANCE, URINE HAZY (CLEAR); BACTERIA, URINE AUTO 1+ (NEGATIVE); BILIRUBIN, URINE AUTO NEGATIVE (NEGATIVE); BLOOD, URINE BLOOD NEGATIVE (NEGATIVE); COLOR, URINE YELLOW (YELLOW); GLUCOSE, URINE (UA) AUTO NEGATIVE (NEGATIVE); KETONE, URINE AUTO NEGATIVE (NEGATIVE); LEUKOCYTE ESTERASE, URINE AUTO TRACE (NEGATIVE); NITRITE, URINE AUTO POSITIVE (NEGATIVE); PROTEIN, URINE AUTO NEGATIVE (NEGATIVE); RBC, URINE AUTO 1 /HPF (0-3); SPECIFIC GRAVITY URINE AUTO 1.013 (1.002-1.035); SQUAMOUS EPITHELIAL CELL UR AU 0 /HPF (0-6); UROBILINOGEN, URINE AUTO 0.2 mg/dL (0.0-2.0); WBC, URINE AUTO 13 /HPF (0-3)
== END ==
LOC: SKLAB7 10:49
DX: I50.9 Heart failure, unspecified (principal); M25.552 Pain in left hip; M25.562 Pain in left knee; Z98.890 Other specified postprocedural states; M85.80 Other specified disorders of bone density and structure, unspecified site; Z79.899 Other long term (current) drug therapy
CPT/HCPCS: 73501

== ENCOUNTER → 2017-11-11 | Outpatient (REF) | payer MEDICARE, MEDICAID ==
[2017-11-11 17:23] LABS: HEMATOCRIT 36.3 % (36.0-47.0); HEMOGLOBIN 11.8 g/dl (12.0-15.5); MEAN CORPUSCULAR HEMOGLOBIN 29.1 pg (27.0-33.0); MEAN CORPUSCULAR HGB CONC 32.5 g/dl (32.0-36.5); MEAN CORPUSCULAR VOLUME 89.4 fl (80.0-96.0); PLATELET COUNT, AUTOMATED 294 10^3/uL (150-450); RED BLOOD COUNT 4.06 10^6/uL (4.00-5.40); RED CELL DISTRIBUTION WIDTH 13.8 % (11.5-14.5); WHITE BLOOD COUNT 10.5 10^3/uL (4.0-10.0)
[2017-11-11 18:08] LABS: ANION GAP 9 MEQ/L (8-16); BLOOD UREA NITROGEN 15 MG/DL (7-18); CALCIUM LEVEL 9.3 MG/DL (8.8-10.2); CARBON DIOXIDE LEVEL 30 MEQ/L (21-32); CHLORIDE LEVEL 101 MEQ/L (98-107); CREATININE FOR GFR 0.87 MG/DL (0.55-1.30); GLOMERULAR FILTRATION RATE > 60.0 (>32); GLUCOSE, FASTING 198 MG/DL (70-100); POTASSIUM SERUM 3.8 MEQ/L (3.5-5.1); SODIUM LEVEL 140 MEQ/L (136-145)
[2017-11-12 00:15] LABS: INFLUENZA A AMPLIFICATION NEGATIVE (NEGATIVE); INFLUENZA B AMPLIFICATION NEGATIVE (NEGATIVE)
== END ==
LOC: SKLAB7 16:10
DX: R11.2 Nausea with vomiting, unspecified (principal); R19.7 Diarrhea, unspecified; Z79.899 Other long term (current) drug therapy
CPT/HCPCS: 80048

== ENCOUNTER → 2017-11-30 | Outpatient (REF) | payer MEDICARE, MEDICAID ==
[2017-11-30 16:07] LABS: HEMATOCRIT 38.4 % (36.0-47.0); HEMOGLOBIN 12.1 g/dl (12.0-15.5); MEAN CORPUSCULAR HEMOGLOBIN 29.7 pg (27.0-33.0); MEAN CORPUSCULAR HGB CONC 31.5 g/dl (32.0-36.5); MEAN CORPUSCULAR VOLUME 94.3 fl (80.0-96.0); PLATELET COUNT, AUTOMATED 290 10^3/uL (150-450); RED BLOOD COUNT 4.07 10^6/uL (4.00-5.40); RED CELL DISTRIBUTION WIDTH 14.6 % (11.5-14.5); WHITE BLOOD COUNT 13.9 10^3/uL (4.0-10.0)
[2017-11-30 16:28] LABS: ANION GAP 8 MEQ/L (8-16); BLOOD UREA NITROGEN 18 MG/DL (7-18); CALCIUM LEVEL 8.1 MG/DL (8.8-10.2); CARBON DIOXIDE LEVEL 31 MEQ/L (21-32); CHLORIDE LEVEL 101 MEQ/L (98-107); GLOMERULAR FILTRATION RATE 56.4 (>32); GLUCOSE, FASTING 260 MG/DL (70-100); POTASSIUM SERUM 4.1 MEQ/L (3.5-5.1); SODIUM LEVEL 140 MEQ/L (136-145)
[2017-11-30 18:03] LABS: ERYTHROCYTE SEDIMENTATION RATE 17 mm/hr (0-30)
== END ==
LOC: SKLAB7 13:52
DX: L29.9 Pruritus, unspecified (principal)
CPT/HCPCS: 80048

== ENCOUNTER → 2017-12-01 | Outpatient (REF) | payer MEDICARE, MEDICAID | LOC: SKLAB7 11:43 | DX: D72.829 Elevated white blood cell count, unspecified (principal); N39.0 Urinary tract infection, site not specified | CPT/HCPCS: 87088; 87186 ==

== ENCOUNTER 2017-12-30 09:51 | Inpatient (IN) | payer MEDICARE, MEDICAID, OTHER ==
[2017-12-30 10:29] LABS: BEDSIDE GLUCOSE 115 MG/DL (83-110)
[2017-12-30 11:20] LABS: PARTIAL THROMBOPLASTIN TIME 35.5 SECONDS (25.4-37.6)
[2017-12-30 11:27] LABS: ANION GAP 7 MEQ/L (8-16); BLOOD UREA NITROGEN 15 MG/DL (7-18); CALCIUM LEVEL 8.6 MG/DL (8.8-10.2); CARBON DIOXIDE LEVEL 30 MEQ/L (21-32); CHLORIDE LEVEL 102 MEQ/L (98-107); CPK CREATINE PHOSPHOKINASE 55 U/L (26-192); CREATININE FOR GFR 0.85 MG/DL (0.55-1.30); GLOMERULAR FILTRATION RATE > 60.0 (>32); GLUCOSE, FASTING 105 MG/DL (70-100); POTASSIUM SERUM 3.3 MEQ/L (3.5-5.1); SODIUM LEVEL 139 MEQ/L (136-145); TROPONIN I 0.02 NG/ML (< 0.10)
[2017-12-30 11:30] LABS: BASO # 0.1 10^3/uL (0.0-0.2); EOS # 0.4 10^3/uL (0.0-0.50); EOS % 4.6 % (0.0-3.0); HEMATOCRIT 39.5 % (36.0-47.0); HEMOGLOBIN 12.5 g/dl (12.0-15.5); IMMATURE GRANULOCYTE % 0.4 % (0-3.0); INR 1.09; LYMPH # 1.1 10^3/uL (1.5-4.5); LYMPH % 12.5 % (24.0-44.0); MEAN CORPUSCULAR HEMOGLOBIN 29.8 pg (27.0-33.0); MEAN CORPUSCULAR HGB CONC 31.6 g/dl (32.0-36.5); MEAN CORPUSCULAR VOLUME 94.3 fl (80.0-96.0); MONO # 1.1 10^3/uL (0.0-0.8); MONO % 12.4 % (0.0-5.0); NEUTROPHILS # 6.1 10^3/uL (1.8-7.7); NEUTROPHILS % 69.1 % (36.0-66.0); PLATELET COUNT, AUTOMATED 238 10^3/uL (150-450); PROTHROMBIN TIME 14.2 SECONDS (12.1-14.4); RED BLOOD COUNT 4.19 10^6/uL (4.00-5.40); RED CELL DISTRIBUTION WIDTH 13.8 % (11.5-14.5); WHITE BLOOD COUNT 8.9 10^3/uL (4.0-10.0)
[2017-12-30] MEDS ORDERED: ISOVUE-370 76% 100ML VIAL (Q9967) As Ordered (12:12)
[2017-12-30] MEDS ORDERED: GLUCOSE 4 GM CHEW TABLET PO ×2 (12:45→19:45)
[2017-12-30] MEDS ORDERED: BISACODYL 10 MG SUPP PR (12:45)
[2017-12-30] MEDS ORDERED: NORCO, ANEXSIA 5/325MG TABLET (HYDROcodone/ACETAMINOPHEN) PO (12:45)
[2017-12-30] MEDS ORDERED: GLUCAGON FOR INJ 1 MG VIAL (J1610) SC ×2 (12:45→19:45)
[2017-12-30] MEDS ORDERED: DEXTROSE 50% 50 ML SYRINGE IV ×2 (12:45→19:45)
[2017-12-30 13:13] LABS: BEDSIDE GLUCOSE 137 MG/DL (83-110)
[2017-12-30] MEDS: ASPIRIN 81 MG ENTERIC TAB PO (13:32)
[2017-12-30] MEDS: DULoxetine 30 MG CAP (CYMBALTA) PO (13:32)
[2017-12-30] MEDS: ALLOPURINOL 300 MG TAB PO (13:32)
[2017-12-30] MEDS: CLOPIDOGREL 75 MG TAB PO (13:32)
[2017-12-30] MEDS: ATORVASTATIN 20 MG TAB PO (13:33)
[2017-12-30] MEDS: OMEPRAZOLE 20 MG CAP PO (13:33)
[2017-12-30] MEDS: HumaLOG INSULIN (NovoLOG) PER UNIT SC ×3 (13:33→21:54)
[2017-12-30] MEDS: FAMOTIDINE 20 MG TAB PO (13:34)
[2017-12-30] MEDS: GABAPENTIN 400 MG CAP PO ×2 (13:34→21:54)
[2017-12-30] MEDS: POTASSIUM CHLORIDE 10 MEQ SR TABLET PO (13:52)
[2017-12-30] MEDS ORDERED: SLF 3 ML SYR IV (15:30)
[2017-12-30] MEDS: ACETAMINOPHEN 500 MG TAB PO ×2 (16:00→16:51)
[2017-12-30 16:53] LABS: BEDSIDE GLUCOSE 123 MG/DL (83-110)
[2017-12-30 17:26] LABS: CPK CREATINE PHOSPHOKINASE 59 U/L (26-192); MAGNESIUM LEVEL 1.8 MG/DL (1.8-2.4); MB/CK RELATIVE INDEX 12.03 (< OR =4); TROPONIN I 0.06 NG/ML (< 0.10)
[2017-12-30] MEDS: PYRIDOSTIGMINE 60 MG TAB PO ×2 (17:58→21:00)
[2017-12-30] MEDS: SINEMET 25-250 TABLET PO (21:00)
[2017-12-30 21:25] LABS: BEDSIDE GLUCOSE 274 MG/DL (83-110)
[2017-12-30] MEDS: NYSTATIN 100,000 UNITS/GM TOPICAL PWD 15 GM TOP (21:53)
[2017-12-30] MEDS: HEPARIN SOD (PORCINE) 5000 UNITS/ML VIAL SQ (21:53)
[2017-12-30] MEDS: LEVEMIR (INSULIN DETEMIR) 1 UNITS/0.01ML SC (21:54)
[2017-12-30] MEDS: PREGABALIN 50 MG CAP (LYRICA) PO (21:55)
[2017-12-30] MEDS: NORCO, ANEXSIA 5/325MG TABLET (HYDROcodone/ACETAMINOPHEN) PO (21:55)
[2017-12-30] MEDS: SENOKOT S TAB PO (21:55)
[2017-12-30] MEDS: SLF 3 ML SYR IV (22:00)
[2017-12-30 23:15] LABS: CPK CREATINE PHOSPHOKINASE 54 U/L (26-192); MB/CK RELATIVE INDEX 11.85 (< OR =4); TROPONIN I 0.09 NG/ML (< 0.10)
[2017-12-30] MEDS: ANALGESIC BALM CRM 120 GM TOP (23:44)
[2017-12-31] MEDS: SLF 3 ML SYR IV ×3 (05:24→21:25)
[2017-12-31 06:05] LABS: HEMATOCRIT 35.2 % (36.0-47.0); HEMOGLOBIN 11.3 g/dl (12.0-15.5); MEAN CORPUSCULAR HEMOGLOBIN 29.5 pg (27.0-33.0); MEAN CORPUSCULAR HGB CONC 32.1 g/dl (32.0-36.5); MEAN CORPUSCULAR VOLUME 91.9 fl (80.0-96.0); PLATELET COUNT, AUTOMATED 241 10^3/uL (150-450); RED BLOOD COUNT 3.83 10^6/uL (4.00-5.40); RED CELL DISTRIBUTION WIDTH 13.6 % (11.5-14.5); WHITE BLOOD COUNT 8.2 10^3/uL (4.0-10.0)
[2017-12-31 06:33] LABS: ALBUMIN 2.2 GM/DL (3.2-5.2); ALBUMIN/GLOBULIN RATIO 0.71 (1.00-1.93); ALKALINE PHOSPHATASE 112 U/L (45-117); ALT/SGPT 9 U/L (12-78); ANION GAP 5 MEQ/L (8-16); AST/SGOT 33 U/L (7-37); BILIRUBIN,DIRECT 0.3 MG/DL (0.0-0.2); BILIRUBIN,TOTAL 0.8 MG/DL (0.2-1.0); BLOOD UREA NITROGEN 10 MG/DL (7-18); CALCIUM LEVEL 8.5 MG/DL (8.8-10.2); CARBON DIOXIDE LEVEL 31 MEQ/L (21-32); CHLORIDE LEVEL 103 MEQ/L (98-107); CREATININE FOR GFR 0.74 MG/DL (0.55-1.30); GLOMERULAR FILTRATION RATE > 60.0 (>32); GLUCOSE, FASTING 108 MG/DL (70-100); POTASSIUM SERUM 3.5 MEQ/L (3.5-5.1); SODIUM LEVEL 139 MEQ/L (136-145); TOTAL PROTEIN 5.3 GM/DL (6.4-8.2)
[2017-12-31] MEDS: ACETAMINOPHEN 500 MG TAB PO ×2 (08:00→16:00)
[2017-12-31] MEDS: HEPARIN SOD (PORCINE) 5000 UNITS/ML VIAL SQ ×2 (08:19→21:25)
[2017-12-31] MEDS: FAMOTIDINE 20 MG TAB PO (08:20)
[2017-12-31] MEDS: CLOPIDOGREL 75 MG TAB PO (08:20)
[2017-12-31] MEDS: HumaLOG INSULIN (NovoLOG) PER UNIT SC ×4 (08:20→21:00)
[2017-12-31] MEDS: GABAPENTIN 400 MG CAP PO ×2 (08:21→21:24)
[2017-12-31] MEDS: OMEPRAZOLE 20 MG CAP PO (08:21)
[2017-12-31] MEDS: ALLOPURINOL 300 MG TAB PO (08:21)
[2017-12-31] MEDS: ASPIRIN 81 MG ENTERIC TAB PO (08:21)
[2017-12-31] MEDS: SENOKOT S TAB PO ×2 (08:21→21:25)
[2017-12-31] MEDS: DULoxetine 30 MG CAP (CYMBALTA) PO (08:21)
[2017-12-31] MEDS: PREGABALIN 50 MG CAP (LYRICA) PO ×2 (08:21→21:24)
[2017-12-31] MEDS: NYSTATIN 100,000 UNITS/GM TOPICAL PWD 15 GM TOP ×2 (08:22→21:31)
[2017-12-31] MEDS ORDERED: PILL CRUSHER/CUTTER 1 EACH XX (08:30)
[2017-12-31] MEDS: PYRIDOSTIGMINE 60 MG TAB PO ×3 (09:31→21:49)
[2017-12-31 11:33] LABS: BEDSIDE GLUCOSE 74 MG/DL (83-110)
[2017-12-31] MEDS: HYDROCORTISONE 0.5% CREAM 30 GM TOP (15:59)
[2017-12-31] MEDS: ANALGESIC BALM CRM 120 GM TOP (16:01)
[2017-12-31 17:15] LABS: BEDSIDE GLUCOSE 157 MG/DL (83-110)
[2017-12-31] MEDS: LEVEMIR (INSULIN DETEMIR) 1 UNITS/0.01ML SC (21:00)
[2017-12-31] MEDS: NORCO, ANEXSIA 5/325MG TABLET (HYDROcodone/ACETAMINOPHEN) PO (21:24)
[2017-12-31] MEDS: SINEMET 25-250 TABLET PO (21:24)
[2017-12-31] MEDS: ATORVASTATIN 20 MG TAB PO (21:24)
[2017-12-31 23:25] LABS: BEDSIDE GLUCOSE 172 MG/DL (83-110)
[2018-01-01] MEDS: SLF 3 ML SYR IV (05:32)
[2018-01-01] MEDS: HumaLOG INSULIN (NovoLOG) PER UNIT SC (07:30)
[2018-01-01 08:18] LABS: HEMATOCRIT 37.2 % (36.0-47.0); HEMOGLOBIN 11.8 g/dl (12.0-15.5); MEAN CORPUSCULAR HEMOGLOBIN 29.7 pg (27.0-33.0); MEAN CORPUSCULAR HGB CONC 31.7 g/dl (32.0-36.5); MEAN CORPUSCULAR VOLUME 93.7 fl (80.0-96.0); PLATELET COUNT, AUTOMATED 257 10^3/uL (150-450); RED BLOOD COUNT 3.97 10^6/uL (4.00-5.40); RED CELL DISTRIBUTION WIDTH 13.8 % (11.5-14.5); WHITE BLOOD COUNT 7.8 10^3/uL (4.0-10.0)
[2018-01-01 08:22] LABS: ANION GAP 5 MEQ/L (8-16); BLOOD UREA NITROGEN 11 MG/DL (7-18); CALCIUM LEVEL 8.5 MG/DL (8.8-10.2); CARBON DIOXIDE LEVEL 30 MEQ/L (21-32); CHLORIDE LEVEL 104 MEQ/L (98-107); GLOMERULAR FILTRATION RATE > 60.0 (>32); GLUCOSE, FASTING 74 MG/DL (70-100); MAGNESIUM LEVEL 1.9 MG/DL (1.8-2.4); POTASSIUM SERUM 3.5 MEQ/L (3.5-5.1); SODIUM LEVEL 139 MEQ/L (136-145)
[2018-01-01] MEDS: NYSTATIN 100,000 UNITS/GM TOPICAL PWD 15 GM TOP (09:00)
[2018-01-01] MEDS: SENOKOT S TAB PO (09:00)
[2018-01-01] MEDS: PREGABALIN 50 MG CAP (LYRICA) PO (09:01)
[2018-01-01] MEDS: DULoxetine 30 MG CAP (CYMBALTA) PO (09:01)
[2018-01-01] MEDS: GABAPENTIN 400 MG CAP PO (09:01)
[2018-01-01] MEDS: OMEPRAZOLE 20 MG CAP PO (09:01)
[2018-01-01] MEDS: ACETAMINOPHEN 500 MG TAB PO (09:01)
[2018-01-01] MEDS: FAMOTIDINE 20 MG TAB PO (09:01)
[2018-01-01] MEDS: PYRIDOSTIGMINE 60 MG TAB PO (09:01)
[2018-01-01] MEDS: CLOPIDOGREL 75 MG TAB PO (09:01)
[2018-01-01] MEDS: ASPIRIN 81 MG ENTERIC TAB PO (09:01)
[2018-01-01] MEDS: ALLOPURINOL 300 MG TAB PO (09:01)
[2018-01-01] MEDS: HEPARIN SOD (PORCINE) 5000 UNITS/ML VIAL SQ (09:02)
[2018-01-01 13:35] LABS: BEDSIDE GLUCOSE 112 MG/DL (83-110)
== END 2018-01-01 15:06 | DRG 66 ==
LOC: M ED 09:51 → M ED INP 12:40 → M PCU 14:41
PROVIDERS: Hospitalist
DX: I63.9 Cerebral infarction, unspecified (principal); G70.00 Myasthenia gravis without (acute) exacerbation; E11.40 Type 2 diabetes mellitus with diabetic neuropathy, unspecified; K21.9 Gastro-esophageal reflux disease without esophagitis; M10.9 Gout, unspecified; G20 Parkinson's disease; I50.9 Heart failure, unspecified; E78.5 Hyperlipidemia, unspecified; M19.90 Unspecified osteoarthritis, unspecified site; Z79.899 Other long term (current) drug therapy; Z88.0 Allergy status to penicillin; Z88.6 Allergy status to analgesic agent; Z88.8 Allergy status to other drugs, medicaments and biological substances; Z79.4 Long term (current) use of insulin; Z79.82 Long term (current) use of aspirin; Z87.891 Personal history of nicotine dependence; G25.81 Restless legs syndrome

== ENCOUNTER → 2018-01-06 | Outpatient (REF) | payer MEDICARE, MEDICAID | LOC: SKLAB7 13:34 | DX: Z86.14 Personal history of Methicillin resistant Staphylococcus aureus infection (principal) | CPT/HCPCS: 87081 ==

== ENCOUNTER → 2018-01-13 | Outpatient (REF) | payer MEDICARE, MEDICAID | LOC: SKLAB7 13:07 | DX: Z86.14 Personal history of Methicillin resistant Staphylococcus aureus infection (principal) | CPT/HCPCS: 87081 ==

== ENCOUNTER 2018-01-14 10:33 | Emergency (ER) | payer MEDICARE, MEDICAID ==
[2018-01-14] MEDS ORDERED: ISOVUE-370 76% 100ML VIAL (Q9967) As Ordered (12:10)
[2018-01-14 12:56] LABS: BASO # 0.1 10^3/uL (0.0-0.2); BASO % 1.1 % (0.0-1.0); EOS # 0.3 10^3/uL (0.0-0.50); EOS % 2.5 % (0.0-3.0); HEMATOCRIT 43.7 % (36.0-47.0); HEMOGLOBIN 14.1 g/dl (12.0-15.5); IMMATURE GRANULOCYTE % 0.5 % (0-3.0); LYMPH # 1.3 10^3/uL (1.5-4.5); MEAN CORPUSCULAR HEMOGLOBIN 29.8 pg (27.0-33.0); MEAN CORPUSCULAR HGB CONC 32.3 g/dl (32.0-36.5); MEAN CORPUSCULAR VOLUME 92.4 fl (80.0-96.0); MONO # 0.9 10^3/uL (0.0-0.8); MONO % 7.1 % (0.0-5.0); NEUTROPHILS # 9.9 10^3/uL (1.8-7.7); NEUTROPHILS % 78.8 % (36.0-66.0); PLATELET COUNT, AUTOMATED 318 10^3/uL (150-450); RED BLOOD COUNT 4.73 10^6/uL (4.00-5.40); RED CELL DISTRIBUTION WIDTH 13.4 % (11.5-14.5); WHITE BLOOD COUNT 12.6 10^3/uL (4.0-10.0)
[2018-01-14 13:28] LABS: ANION GAP 6 MEQ/L (8-16); BLOOD UREA NITROGEN 11 MG/DL (7-18); CARBON DIOXIDE LEVEL 36 MEQ/L (21-32); CHLORIDE LEVEL 97 MEQ/L (98-107); CPK CREATINE PHOSPHOKINASE 39 U/L (26-192); CREATININE FOR GFR 0.83 MG/DL (0.55-1.30); GLOMERULAR FILTRATION RATE > 60.0 (>32); GLUCOSE, FASTING 177 MG/DL (70-100); MB/CK RELATIVE INDEX 11.54 (< OR =4); POTASSIUM SERUM 3.3 MEQ/L (3.5-5.1); SODIUM LEVEL 139 MEQ/L (136-145); TROPONIN I 0.03 NG/ML (< 0.10)
== END 2018-01-14 13:26 | disposition short-term general hospital (02) ==
LOC: M ED 10:33
DX: I63.9 Cerebral infarction, unspecified (principal); E11.9 Type 2 diabetes mellitus without complications; I11.0 Hypertensive heart disease with heart failure; I50.9 Heart failure, unspecified; E78.5 Hyperlipidemia, unspecified; M10.9 Gout, unspecified; K21.9 Gastro-esophageal reflux disease without esophagitis; G20 Parkinson's disease; Z79.899 Other long term (current) drug therapy; Z79.82 Long term (current) use of aspirin; Z79.4 Long term (current) use of insulin; Z88.0 Allergy status to penicillin; Z88.8 Allergy status to other drugs, medicaments and biological substances
CPT/HCPCS: Q9967

== ENCOUNTER → 2018-01-23 | Outpatient (REF) | payer MEDICARE, MEDICAID ==
[2018-01-23 10:40] LABS: BLOOD UREA NITROGEN 11 MG/DL (7-18); CREATININE FOR GFR 0.76 MG/DL (0.55-1.30); GLOMERULAR FILTRATION RATE > 60.0 (>32); GLUCOSE, FASTING 66 MG/DL (70-100)
[2018-01-23 10:41] LABS: CALCIUM LEVEL 8.3 MG/DL (8.8-10.2); CARBON DIOXIDE LEVEL 29 MEQ/L (21-32); CHLORIDE LEVEL 103 MEQ/L (98-107); MAGNESIUM LEVEL 2.1 MG/DL (1.8-2.4); POTASSIUM SERUM 3.6 MEQ/L (3.5-5.1); SODIUM LEVEL 141 MEQ/L (136-145)
[2018-01-23 10:43] LABS: ANION GAP 9 MEQ/L (8-16)
== END ==
LOC: M LAB 09:29
DX: E83.42 Hypomagnesemia (principal)
CPT/HCPCS: 83735

== ENCOUNTER → 2018-01-25 | Outpatient (REF) | payer MEDICAID, MEDICARE ==
[2018-01-25 08:52] LABS: ANION GAP 6 MEQ/L (8-16); BLOOD UREA NITROGEN 10 MG/DL (7-18); CALCIUM LEVEL 8.3 MG/DL (8.8-10.2); CARBON DIOXIDE LEVEL 32 MEQ/L (21-32); CHLORIDE LEVEL 101 MEQ/L (98-107); CREATININE FOR GFR 0.72 MG/DL (0.55-1.30); GLOMERULAR FILTRATION RATE > 60.0 (>32); GLUCOSE, FASTING 141 MG/DL (70-100); MAGNESIUM LEVEL 1.7 MG/DL (1.8-2.4); POTASSIUM SERUM 3.6 MEQ/L (3.5-5.1); SODIUM LEVEL 139 MEQ/L (136-145)
== END ==
LOC: SKLAB7 07:00
DX: I63.9 Cerebral infarction, unspecified (principal)

== ENCOUNTER → 2018-01-26 | Outpatient (CLI) | payer MEDICARE, MEDICAID | LOC: M RAD 11:48 | DX: I63.9 Cerebral infarction, unspecified (principal); I73.9 Peripheral vascular disease, unspecified | CPT/HCPCS: 70450 ==

== ENCOUNTER → 2018-02-01 | Outpatient (REF) ==
[2018-02-01 08:57] LABS: ANION GAP 7 MEQ/L (8-16); BLOOD UREA NITROGEN 12 MG/DL (7-18); CALCIUM LEVEL 8.2 MG/DL (8.8-10.2); CARBON DIOXIDE LEVEL 34 MEQ/L (21-32); CHLORIDE LEVEL 98 MEQ/L (98-107); CREATININE FOR GFR 0.71 MG/DL (0.55-1.30); GLOMERULAR FILTRATION RATE > 60.0 (>32); GLUCOSE, FASTING 128 MG/DL (70-100); MAGNESIUM LEVEL 1.8 MG/DL (1.8-2.4); POTASSIUM SERUM 3.6 MEQ/L (3.5-5.1); SODIUM LEVEL 139 MEQ/L (136-145)
== END ==
LOC: SKLAB7 14:56
DX: I63.9 Cerebral infarction, unspecified (principal)

== ENCOUNTER → 2018-02-03 | Outpatient (REF) | payer MEDICARE, MEDICAID | LOC: SKLAB7 15:25 | DX: Z86.14 Personal history of Methicillin resistant Staphylococcus aureus infection (principal) | CPT/HCPCS: 87081 ==

== ENCOUNTER → 2018-04-01 | Outpatient (REF) | payer MEDICARE, MEDICAID, OTHER ==
[~2018-04-01] MED LIST changes: +ACET500T15 PO; +ASPI81TA24 PO; +ASPI81TA85 PO; +ATOR1TAB21 PO; -CARB1TAB21 PO; +CARB25TA12 PO; +CIPR1TAB20 PO; +CIPR500T3 PO; +CLOP75TA2 PO; +DULC10SU2 PR; +ENEMENE6 PR; +FURO40TA2 PO; -GABA-282 PO; +GABA-843 PO; +GABA-845 PO; +INSUDET SC; +LIDO2SOL10 MT; +MEST60TA PO; +MILK120011 PO; +NITR100C2 PO; +NORC1TAB4 PO; +PREDOPD OS; +PYRI60TA2 PO; +TYLE325T5 PO; +VITMTA PO; +ZANTTAB PO; +ZYLO300T6 PO
[2018-04-01 08:47] LABS: HEMOGLOBIN A1c 8.1 %
== END ==
LOC: SKLAB7 09:51
PROVIDERS: ATTEND Internal Medicine
DX: E11.9 Type 2 diabetes mellitus without complications (principal); Z79.899 Other long term (current) drug therapy

== ENCOUNTER → 2018-05-06 | Outpatient (REF) | payer MEDICARE, MEDICAID, OTHER ==
[2018-05-06 15:20] LABS: APPEARANCE, URINE TURBID (CLEAR); BACTERIA, URINE AUTO 3+ (NEGATIVE); BILIRUBIN, URINE AUTO NEGATIVE (NEGATIVE); BLOOD, URINE BLOOD 1+ (NEGATIVE); COLOR, URINE YELLOW (YELLOW); GLUCOSE, URINE (UA) AUTO NEGATIVE (NEGATIVE); KETONE, URINE AUTO NEGATIVE (NEGATIVE); LEUKOCYTE ESTERASE, URINE AUTO 3+ (NEGATIVE); MUCUS, URINE SMALL (NEGATIVE); NITRITE, URINE AUTO POSITIVE (NEGATIVE); PROTEIN, URINE AUTO 1+ mg/dL (NEGATIVE); RBC, URINE AUTO 98 /HPF (0-3); SPECIFIC GRAVITY URINE AUTO 1.012 (1.002-1.035); SQUAMOUS EPITHELIAL CELL UR AU 0 /HPF (0-6); UROBILINOGEN, URINE AUTO 0.2 mg/dL (0.0-2.0); WBC, URINE AUTO TNTC /HPF (0-3)
== END ==
LOC: SKLAB7 14:17 → SKLAB3 14:17
PROVIDERS: ATTEND Internal Medicine
DX: R30.0 Dysuria (principal)

== ENCOUNTER → 2018-06-23 | Outpatient (REF) | payer MEDICARE, MEDICAID, OTHER ==
[~2018-06-23] MED LIST changes: -ALLO15TA PO; +ALLO300T2 PO; -ASPI1TAB PO; +ASPI81TA26 PO; -LIDO2SOL10 MT; +LIDO2SOL9 MT; -NORC1TAB4 PO; +NORC1TAB7 PO
== END ==
LOC: SKLAB7 08:55
PROVIDERS: ATTEND Internal Medicine
DX: N39.0 Urinary tract infection, site not specified (principal)

== ENCOUNTER → 2018-07-01 | Outpatient (REF) | payer MEDICARE, MEDICAID, OTHER ==
[2018-07-01 09:15] LABS: HEMATOCRIT 30.6 % (36.0-47.0); HEMOGLOBIN 9.7 g/dl (12.0-15.5); MEAN CORPUSCULAR HEMOGLOBIN 28.7 pg (27.0-33.0); MEAN CORPUSCULAR HGB CONC 31.7 g/dl (32.0-36.5); MEAN CORPUSCULAR VOLUME 90.5 fl (80.0-96.0); PLATELET COUNT, AUTOMATED 263 10^3/uL (150-450); RED BLOOD COUNT 3.38 10^6/uL (4.00-5.40); WHITE BLOOD COUNT 8.6 10^3/uL (4.0-10.0)
== END ==
LOC: SKLAB7 08:18
PROVIDERS: ATTEND Internal Medicine
DX: Z87.19 Personal history of other diseases of the digestive system (principal)

== ENCOUNTER → 2018-09-30 | Outpatient (REF) | payer MEDICARE, MEDICAID, OTHER ==
[~2018-09-30] MED LIST changes: -DULO1CAP2 PO; +DULO1CAP5 PO; -OMEP20CA3 PO; +OMEP20CA4 PO; +ZANT150T40 PO; -ZANTTAB PO
== END ==
LOC: SKLAB7 07:00
PROVIDERS: ATTEND Internal Medicine
DX: E11.9 Type 2 diabetes mellitus without complications (principal)

== ENCOUNTER → 2018-12-30 | Outpatient (REF) | payer MEDICARE, MEDICAID, OTHER ==
[2018-12-30 09:09] LABS: HEMATOCRIT 37.4 % (36.0-47.0); MEAN CORPUSCULAR HEMOGLOBIN 29.6 pg (27.0-33.0); MEAN CORPUSCULAR HGB CONC 32.1 g/dl (32.0-36.5); MEAN CORPUSCULAR VOLUME 92.3 fl (80.0-96.0); PLATELET COUNT, AUTOMATED 382 10^3/uL (150-450); RED BLOOD COUNT 4.05 10^6/uL (4.00-5.40); WHITE BLOOD COUNT 12.1 10^3/uL (4.0-10.0)
[2018-12-30 09:29] LABS: HEMOGLOBIN A1c 7.2 %
== END ==
LOC: SKLAB7 10:48
PROVIDERS: ATTEND Internal Medicine
DX: D64.9 Anemia, unspecified (principal); E11.9 Type 2 diabetes mellitus without complications; Z79.899 Other long term (current) drug therapy

== ENCOUNTER → 2019-01-21 | Outpatient (REF) | payer MEDICARE, MEDICAID, OTHER ==
--- NOTE | 2019-01-21 16:12 | REP ---
Clinical: Chest pain. Technique: AP and lateral. Comparison: 12/30/2017. Findings: Current examination demonstrates widening to the mediastinum which may be secondary to subtle rotation although correlation is recommended. The lung gallardo demonstrate chronic-appearing interstitial changes without focal consolidation or effusion. No pneumothorax. Skeletal structures demonstrate osteopenia and degenerative changes. Impression: Widening to the mediastinum may be secondary to subtle rotation. Correlation with chest CT may be warranted. Electronically Signed by Devan Hernandez MD 01/21/2019 04:03 P
--- NOTE | 2019-01-21 16:15 | REP ---
Clinical: Trauma. Technique: Internal rotation, external rotation, and Y view of the right shoulder. Findings: Osteopenia and age-related degenerative changes are appreciated. Periarticular calcifications are suggested which less likely represent small fracture fragments. No definite acute fracture or dislocation. Impression: Osteopenia and degenerative changes. Periarticular calcifications less likely representing small fracture fragments. Electronically Signed by Devan Hernandez MD 01/21/2019 04:06 P
--- NOTE | 2019-01-21 16:19 | REP ---
RIGHT KNEE, FOUR VIEWS: Four views of the right knee performed. There is severe diffuse joint space narrowing with subchondral sclerosis and spurring. There is a mild to moderate joint effusion. There is no acute fracture or dislocation. Mild calcification is seen of the distal quadriceps tendon. There are mild vascular calcifications. IMPRESSION: Severe degenerative changes without evidence of fracture or dislocation. Electronically Signed by Otto Holt MD 01/21/2019 04:19 P
== END ==
LOC: SKLAB7 14:51
PROVIDERS: ATTEND Internal Medicine
DX: M17.11 Unilateral primary osteoarthritis, right knee (principal); M19.011 Primary osteoarthritis, right shoulder; J98.59 Other diseases of mediastinum, not elsewhere classified; M85.811 Other specified disorders of bone density and structure, right shoulder

== ENCOUNTER → 2019-01-21 | Outpatient (REF) | payer MEDICARE, MEDICAID | LOC: M RAD 15:18 | PROVIDERS: ATTEND Internal Medicine | DX: Z53.9 Procedure and treatment not carried out, unspecified reason (principal) ==

== ENCOUNTER → 2019-01-22 | Outpatient (REF) | payer MEDICARE, MEDICAID ==
[2019-01-22 08:23] LABS: BLOOD UREA NITROGEN 13 MG/DL (7-18); CALCIUM LEVEL 8.1 MG/DL (8.8-10.2); CARBON DIOXIDE LEVEL 30 MEQ/L (21-32); CHLORIDE LEVEL 104 MEQ/L (98-107); GLOMERULAR FILTRATION RATE > 60.0 (>32); GLUCOSE, FASTING 167 MG/DL (70-100); POTASSIUM SERUM 3.5 MEQ/L (3.5-5.1); SODIUM LEVEL 141 MEQ/L (136-145)
== END ==
LOC: SKLAB7 07:19
PROVIDERS: ATTEND Internal Medicine
DX: Z79.899 Other long term (current) drug therapy (principal)

== ENCOUNTER → 2019-01-31 | Outpatient (REF) | payer MEDICARE, MEDICAID ==
[~2019-01-31] MED LIST changes: +OMEP-172 PO; -OMEP20CA4 PO
[2019-01-31 08:59] LABS: HEMATOCRIT 34.9 % (36.0-47.0); HEMOGLOBIN 11.2 g/dl (12.0-15.5); MEAN CORPUSCULAR HEMOGLOBIN 29.1 pg (27.0-33.0); MEAN CORPUSCULAR HGB CONC 32.1 g/dl (32.0-36.5); MEAN CORPUSCULAR VOLUME 90.6 fl (80.0-96.0); PLATELET COUNT, AUTOMATED 409 10^3/uL (150-450); RED BLOOD COUNT 3.85 10^6/uL (4.00-5.40); WHITE BLOOD COUNT 9.6 10^3/uL (4.0-10.0)
[2019-01-31 09:26] LABS: ALBUMIN 2.8 GM/DL (3.2-5.2); ALT/SGPT < 6 U/L (12-78); BILIRUBIN,TOTAL 0.8 MG/DL (0.2-1.0); BLOOD UREA NITROGEN 9 MG/DL (7-18); CALCIUM LEVEL 9.2 MG/DL (8.8-10.2); CARBON DIOXIDE LEVEL 30 MEQ/L (21-32); CHLORIDE LEVEL 104 MEQ/L (98-107); CREATININE FOR GFR 0.78 MG/DL (0.55-1.30); GLOMERULAR FILTRATION RATE > 60.0 (>32); GLUCOSE, FASTING 276 MG/DL (70-100); POTASSIUM SERUM 3.7 MEQ/L (3.5-5.1); SODIUM LEVEL 140 MEQ/L (136-145); TOTAL PROTEIN 6.2 GM/DL (6.4-8.2)
== END ==
LOC: SKLAB7 01:15
PROVIDERS: ATTEND Internal Medicine
DX: R11.2 Nausea with vomiting, unspecified (principal)

== ENCOUNTER → 2019-03-16 | Outpatient (REF) | payer MEDICARE, MEDICAID ==
[~2019-03-16] MED LIST changes: -OMEP-172 PO; +OMEP1CAP73 PO
[2019-03-16 12:00] LABS: MALB URINE SIEMENS 55.4 MG/L; MAU/CREAT RATIO 31.1 MCG/MG (0.0-30.0)
== END ==
LOC: SKLAB7 11:02
PROVIDERS: ATTEND Internal Medicine
DX: E11.9 Type 2 diabetes mellitus without complications (principal)

== ENCOUNTER → 2019-03-17 | Outpatient (REF) | payer MEDICARE, MEDICAID ==
[2019-03-17 08:57] LABS: CHOLESTEROL RISK RATIO 2.346 (<5)
== END ==
LOC: SKLAB7 14:10
PROVIDERS: ATTEND Internal Medicine
DX: E78.5 Hyperlipidemia, unspecified (principal)

== ENCOUNTER → 2019-03-18 | Outpatient (REF) | payer MEDICARE, MEDICAID | LOC: SKLAB7 17:23 | PROVIDERS: ATTEND Internal Medicine | DX: R73.09 Other abnormal glucose (principal) ==

== ENCOUNTER → 2019-04-07 | Outpatient (REF) | payer MEDICARE, MEDICAID ==
[2019-04-07 09:43] LABS: HEMOGLOBIN A1c 10.2 %
== END ==
LOC: SKLAB7 13:52
PROVIDERS: ATTEND Internal Medicine
DX: E11.9 Type 2 diabetes mellitus without complications (principal)

== ENCOUNTER → 2019-06-30 | Outpatient (REF) | LOC: SKLAB7 09:04 | PROVIDERS: ATTEND Internal Medicine | DX: Z03.818 Encounter for observation for suspected exposure to other biological agents ruled out (principal) ==

== ENCOUNTER 2019-07-06 12:45 | Emergency (ER) | payer MEDICARE, MEDICAID ==
[~2019-07-06] VITALS: Ht 152.4 cm; Wt 95.7 kg
[2019-07-06 13:51] LABS: BASO # 0.1 10^3/uL (0.0-0.2); BASO % 0.9 % (0.0-1.0); EOS # 0.3 10^3/uL (0.0-0.5); EOS % 2.4 % (0.0-3.0); HEMATOCRIT 34.1 % (36.0-47.0); HEMOGLOBIN 10.6 g/dl (12.0-15.5); LYMPH # 1.8 10^3/uL (1.5-5.0); LYMPH % 14.9 % (24.0-44.0); MEAN CORPUSCULAR HGB CONC 31.1 g/dl (32.0-36.5); MEAN CORPUSCULAR VOLUME 83.6 fl (80.0-96.0); MONO # 0.8 10^3/uL (0.0-0.8); MONO % 7.1 % (0.0-5.0); NEUTROPHILS # 8.7 10^3/uL (1.5-8.5); NEUTROPHILS % 74.3 % (36.0-66.0); PLATELET COUNT, AUTOMATED 316 10^3/uL (150-450); RED BLOOD COUNT 4.08 10^6/uL (4.00-5.40); WHITE BLOOD COUNT 11.8 10^3/uL (4.0-10.0)
[2019-07-06 14:05] LABS: INR 1.28; PROTHROMBIN TIME 15.7 SECONDS (11.8-14.0)
[2019-07-06 14:06] LABS: PARTIAL THROMBOPLASTIN TIME 32.5 SECONDS (25.0-38.4)
[2019-07-06 14:20] LABS: BILIRUBIN,DIRECT 0.2 MG/DL (0.0-0.2); BILIRUBIN,TOTAL 0.5 MG/DL (0.2-1.0); TOTAL PROTEIN 6.4 GM/DL (6.4-8.2)
[2019-07-06 14:42] VITALS: BP 124/58
[2019-07-06] MEDS ORDERED: ACET650S3 PR (14:50)
[2019-07-06] MEDS ORDERED: GLUC1KIT IM (14:50)
[2019-07-06] MEDS ORDERED: POLYOPD OU (14:50)
[2019-07-06] MEDS ORDERED: INSUDET SC (14:50)
[2019-07-06] MEDS ORDERED: CARD240C5 PO (14:50)
[2019-07-06] MEDS ORDERED: FAMO20TA4 PO (14:50)
[2019-07-06] MEDS ORDERED: ELIQ2.5T PO (14:50)
[2019-07-06] MEDS ORDERED: MYLASSUD PO (14:50)
[2019-07-06] MEDS ORDERED: DULO60CA35 PO (14:50)
[2019-07-06] MEDS ORDERED: MOM30SS PO (14:50)
[2019-07-06] MEDS ORDERED: ATOR1TAB21 PO (14:50)
[2019-07-06] MEDS ORDERED: AFRISPR3 (14:50)
== END 2019-07-06 14:44 | disposition home or self-care (01) ==
LOC: M ED 12:45
DX: R04.0 Epistaxis (principal); D64.9 Anemia, unspecified; I48.91 Unspecified atrial fibrillation; E11.9 Type 2 diabetes mellitus without complications; N18.9 Chronic kidney disease, unspecified; K21.9 Gastro-esophageal reflux disease without esophagitis; F41.9 Anxiety disorder, unspecified; F32.9 Major depressive disorder, single episode, unspecified; E26.9 Hyperaldosteronism, unspecified; Z86.73 Personal history of transient ischemic attack (TIA), and cerebral infarction without residual deficits; Z88.0 Allergy status to penicillin; Z88.6 Allergy status to analgesic agent; Z88.1 Allergy status to other antibiotic agents; Z79.899 Other long term (current) drug therapy; Z79.02 Long term (current) use of antithrombotics/antiplatelets; Z79.82 Long term (current) use of aspirin; Z79.4 Long term (current) use of insulin

== ENCOUNTER → 2019-08-04 | Outpatient (REF) | payer MEDICARE, MEDICAID ==
[~2019-08-04] MED LIST changes: +ACET650S3 PR; +AFRISPR3; +CARD240C5 PO; +DULO60CA35 PO; +ELIQ2.5T PO; +FAMO20TA4 PO; +GLUC1KIT IM; +MOM30SS PO; +MYLASSUD PO; +POLYOPD OU
[2019-08-04 09:51] LABS: HEMATOCRIT 33.8 % (36.0-47.0); HEMOGLOBIN 10.2 g/dl (12.0-15.5); MEAN CORPUSCULAR HEMOGLOBIN 25.4 pg (27.0-33.0); MEAN CORPUSCULAR HGB CONC 30.2 g/dl (32.0-36.5); MEAN CORPUSCULAR VOLUME 84.3 fl (80.0-96.0); PLATELET COUNT, AUTOMATED 339 10^3/uL (150-450); RED BLOOD COUNT 4.01 10^6/uL (4.00-5.40); WHITE BLOOD COUNT 9.2 10^3/uL (4.0-10.0)
[2019-08-04 10:15] LABS: ALBUMIN 2.8 GM/DL (3.2-5.2); ALT/SGPT < 6 U/L (12-78); BILIRUBIN,TOTAL 0.5 MG/DL (0.2-1.0); BLOOD UREA NITROGEN 14 MG/DL (7-18); CALCIUM LEVEL 8.9 MG/DL (8.8-10.2); CARBON DIOXIDE LEVEL 31 MEQ/L (21-32); CHLORIDE LEVEL 102 MEQ/L (98-107); CREATININE FOR GFR 0.83 MG/DL (0.55-1.30); GLOMERULAR FILTRATION RATE > 60.0 (>32); GLUCOSE, FASTING 193 MG/DL (70-100); POTASSIUM SERUM 4.2 MEQ/L (3.5-5.1); SODIUM LEVEL 138 MEQ/L (136-145); TOTAL PROTEIN 6.6 GM/DL (6.4-8.2)
== END ==
LOC: SKLAB7 09:34
PROVIDERS: ATTEND Internal Medicine
DX: I50.9 Heart failure, unspecified (principal); D64.9 Anemia, unspecified

== ENCOUNTER → 2019-11-03 | Outpatient (REF) | payer MEDICARE, MEDICAID ==
[~2019-11-03] MED LIST changes: -ASPI81TA85 PO; +ASPI81TA86 PO
[2019-11-03 10:30] LABS: HEMOGLOBIN A1c 9.5 %
== END ==
LOC: SKLAB7 13:01
PROVIDERS: ATTEND Internal Medicine
DX: E11.9 Type 2 diabetes mellitus without complications (principal)

== ENCOUNTER → 2019-12-29 | Outpatient (REF) ==
[2019-12-30 08:21] LABS: INFLUENZA A AMPLIFICATION NEGATIVE (NEGATIVE); INFLUENZA B AMPLIFICATION NEGATIVE (NEGATIVE)
== END ==
LOC: SKLAB7 14:18
PROVIDERS: ATTEND Internal Medicine
DX: Z20.828 Contact with and (suspected) exposure to other viral communicable diseases (principal)

== ENCOUNTER → 2020-01-04 | Outpatient (REF) | payer MEDICARE, MEDICAID ==
[~2020-01-04] MED LIST changes: +GABA-282 PO; -GABA-843 PO
== END ==
LOC: SKLAB7 01-03 15:40 → EDSTATUS 02-10 12:31
PROVIDERS: ATTEND Internal Medicine
DX: Z20.828 Contact with and (suspected) exposure to other viral communicable diseases (principal)

== ENCOUNTER → 2020-01-11 | Outpatient (REF) | payer MEDICARE, MEDICAID | LOC: SKLAB7 08:00 | PROVIDERS: ATTEND Internal Medicine | DX: Z20.828 Contact with and (suspected) exposure to other viral communicable diseases (principal) ==

== ENCOUNTER → 2020-01-18 | Outpatient (REF) | payer MEDICARE, MEDICAID | LOC: SKLAB7 08:00 | PROVIDERS: ATTEND Internal Medicine | DX: Z20.828 Contact with and (suspected) exposure to other viral communicable diseases (principal) ==

== ENCOUNTER → 2020-01-21 | Outpatient (REF) | payer MEDICARE, MEDICAID | LOC: SKLAB7 08:00 | PROVIDERS: ATTEND Internal Medicine | DX: Z20.828 Contact with and (suspected) exposure to other viral communicable diseases (principal) ==

== ENCOUNTER → 2020-01-25 | Outpatient (REF) | payer MEDICARE, MEDICAID ==
[~2020-01-25] MED LIST changes: -GABA-282 PO; +GABA-843 PO
== END ==
LOC: SKLAB7 08:27
PROVIDERS: ATTEND Internal Medicine
DX: Z20.828 Contact with and (suspected) exposure to other viral communicable diseases (principal)

== ENCOUNTER → 2020-01-30 | Outpatient (REF) | payer MEDICARE, MEDICAID | LOC: SKLAB7 17:04 | PROVIDERS: ATTEND Nurse Practitioner | DX: E11.65 Type 2 diabetes mellitus with hyperglycemia (principal) ==

== ENCOUNTER → 2020-02-01 | Outpatient (REF) | payer MEDICARE, MEDICAID | LOC: SKLAB7 13:48 | PROVIDERS: ATTEND Internal Medicine | DX: Z20.828 Contact with and (suspected) exposure to other viral communicable diseases (principal) ==

== ENCOUNTER → 2020-02-08 | Outpatient (REF) | payer MEDICARE, MEDICAID | LOC: SKLAB7 07:00 | PROVIDERS: ATTEND Internal Medicine | DX: Z20.828 Contact with and (suspected) exposure to other viral communicable diseases (principal) ==

== ENCOUNTER → 2020-02-15 | Outpatient (REF) | payer MEDICARE, MEDICAID | LOC: SKLAB7 09:16 | PROVIDERS: ATTEND Internal Medicine | DX: Z20.828 Contact with and (suspected) exposure to other viral communicable diseases (principal) ==

== ENCOUNTER → 2020-02-22 | Outpatient (REF) | payer MEDICARE, MEDICAID | LOC: SKLAB7 13:07 | PROVIDERS: ATTEND Internal Medicine | DX: Z11.52 Encounter for screening for COVID-19 (principal) ==

== ENCOUNTER → 2020-02-29 | Outpatient (REF) | payer MEDICARE, MEDICAID ==
[~2020-02-29] MED LIST changes: +GABA-282 PO; -GABA-843 PO
== END ==
LOC: SKLAB7 10:28
PROVIDERS: ATTEND Internal Medicine
DX: Z20.822 Contact with and (suspected) exposure to COVID-19 (principal)

== ENCOUNTER → 2020-03-07 | Outpatient (REF) | payer MEDICARE, MEDICAID | LOC: SKLAB7 13:51 | PROVIDERS: ATTEND Internal Medicine | DX: Z20.822 Contact with and (suspected) exposure to COVID-19 (principal) ==

== ENCOUNTER → 2020-03-08 | Outpatient (REF) | payer MEDICARE, MEDICAID ==
[2020-03-08 09:10] LABS: HEMATOCRIT 31.1 % (36.0-47.0); HEMOGLOBIN 8.4 g/dl (12.0-15.5); MEAN CORPUSCULAR HEMOGLOBIN 21.2 pg (27.0-33.0); MEAN CORPUSCULAR VOLUME 78.3 fl (80.0-96.0); PLATELET COUNT, AUTOMATED 375 10^3/uL (150-450); RED BLOOD COUNT 3.97 10^6/uL (4.00-5.40); WHITE BLOOD COUNT 9.7 10^3/uL (4.0-10.0)
[2020-03-08 09:34] LABS: BLOOD UREA NITROGEN 16 MG/DL (7-18); CALCIUM LEVEL 9.1 MG/DL (8.8-10.2); CARBON DIOXIDE LEVEL 36 MEQ/L (21-32); CHLORIDE LEVEL 100 MEQ/L (98-107); CHOLESTEROL LEVEL 113 MG/DL (<200); CREATININE FOR GFR 0.88 MG/DL (0.55-1.30); GLOMERULAR FILTRATION RATE > 60.0 (>32); GLUCOSE, FASTING 145 MG/DL (70-100); HDL CHOLESTEROL 50 MG/DL (>40); LDL CHOLESTEROL 42 MG/DL (<100); NON-HDL-C 63 MG/DL; POTASSIUM SERUM 4.5 MEQ/L (3.5-5.1); SODIUM LEVEL 141 MEQ/L (136-145); TRIGLYCERIDES LEVEL 104 MG/DL (<150)
[2020-03-08 11:07] LABS: HEMOGLOBIN A1c 7.7 %
== END ==
LOC: SKLAB7 10:09
PROVIDERS: ATTEND Internal Medicine
DX: I50.9 Heart failure, unspecified (principal); E11.9 Type 2 diabetes mellitus without complications; D64.9 Anemia, unspecified

== ENCOUNTER → 2020-03-14 | Outpatient (REF) | payer MEDICARE, MEDICAID | LOC: SKLAB7 09:43 | PROVIDERS: ATTEND Internal Medicine | DX: Z20.822 Contact with and (suspected) exposure to COVID-19 (principal) ==

== ENCOUNTER → 2020-03-21 | Outpatient (REF) | payer MEDICARE, MEDICAID | LOC: SKLAB7 09:11 | PROVIDERS: ATTEND Internal Medicine | DX: Z20.822 Contact with and (suspected) exposure to COVID-19 (principal) ==

== ENCOUNTER → 2020-03-28 | Outpatient (REF) | payer MEDICARE, MEDICAID | LOC: SKLAB7 11:28 | PROVIDERS: ATTEND Internal Medicine | DX: Z20.822 Contact with and (suspected) exposure to COVID-19 (principal) ==

== ENCOUNTER → 2020-04-04 | Outpatient (REF) | payer MEDICARE, MEDICAID | LOC: SKLAB7 07:05 | PROVIDERS: ATTEND Internal Medicine | DX: Z20.822 Contact with and (suspected) exposure to COVID-19 (principal) ==

== ENCOUNTER → 2020-04-11 | Outpatient (REF) | payer MEDICARE, MEDICAID | LOC: SKLAB7 14:08 | PROVIDERS: ATTEND Internal Medicine | DX: Z20.822 Contact with and (suspected) exposure to COVID-19 (principal) ==

== ENCOUNTER → 2020-04-25 | Outpatient (REF) | payer MEDICARE, MEDICAID | LOC: SKLAB7 08:48 | PROVIDERS: ATTEND Internal Medicine | DX: Z20.822 Contact with and (suspected) exposure to COVID-19 (principal) ==

== ENCOUNTER → 2020-05-02 | Outpatient (REF) | payer MEDICARE, MEDICAID | LOC: SKLAB7 12:18 | PROVIDERS: ATTEND Internal Medicine | DX: Z20.822 Contact with and (suspected) exposure to COVID-19 (principal) ==

== ENCOUNTER → 2020-05-18 | Outpatient (REF) | payer MEDICARE, MEDICAID | LOC: SKLAB7 07:00 | PROVIDERS: ATTEND Internal Medicine | DX: Z20.822 Contact with and (suspected) exposure to COVID-19 (principal) ==

== ENCOUNTER → 2020-05-29 | Outpatient (REF) | payer MEDICARE, MEDICAID ==
[~2020-05-29] MED LIST changes: +BENG1CRE3 EXT; +CEPH500C PO; +DESI13CR2 EXT; +GABA600T4 PO; +GNPSOL OU; +HM S0.65; +HYDR-4571 PO; +TRUL10IN SC; +VASEGEL6 EXT
[2020-05-29 09:09] LABS: HEMATOCRIT 32.2 % (36.0-47.0); HEMOGLOBIN 8.9 g/dl (12.0-15.5); MEAN CORPUSCULAR HGB CONC 27.6 g/dl (32.0-36.5); MEAN CORPUSCULAR VOLUME 76.1 fl (80.0-96.0); PLATELET COUNT, AUTOMATED 311 10^3/uL (150-450); RED BLOOD COUNT 4.23 10^6/uL (4.00-5.40); WHITE BLOOD COUNT 10.9 10^3/uL (4.0-10.0)
[2020-05-29 09:34] LABS: ALBUMIN 2.6 GM/DL (3.2-5.2); ALT/SGPT 7 U/L (12-78); AMYLASE 30 U/L (25-115); BILIRUBIN,TOTAL 0.5 MG/DL (0.2-1.0); BLOOD UREA NITROGEN 13 MG/DL (7-18); CALCIUM LEVEL 8.6 MG/DL (8.8-10.2); CARBON DIOXIDE LEVEL 37 MEQ/L (21-32); CHLORIDE LEVEL 96 MEQ/L (98-107); CREATININE FOR GFR 0.94 MG/DL (0.55-1.30); GLOMERULAR FILTRATION RATE > 60.0 (>32); GLUCOSE, FASTING 224 MG/DL (70-100); LIPASE 65 U/L (73-393); POTASSIUM SERUM 3.2 MEQ/L (3.5-5.1); SODIUM LEVEL 137 MEQ/L (136-145); TOTAL PROTEIN 6.1 GM/DL (6.4-8.2)
--- NOTE | 2020-05-29 12:25 | REP ---
INDICATION: ABDOMINAL PAIN. COMPARISON: 09/16/2017 FINDINGS: KUB shows the intestinal gas pattern to be nonspecific. The organ silhouettes insofar as delineated are unremarkable. There is no evidence of free intraperitoneal air. The bones are demineralized. Chronic changes are seen involving the imaged spine and hips. These chronic changes appear stable. IMPRESSION: Nonspecific. No evidence of acute disease. <Electronically signed by Jimmie Edwards > 05/29/20 [id number]
== END ==
LOC: SKLAB7 07:00
PROVIDERS: ATTEND Internal Medicine
DX: R10.9 Unspecified abdominal pain (principal); M81.0 Age-related osteoporosis without current pathological fracture

== ENCOUNTER → 2020-05-31 | Outpatient (REF) | payer MEDICARE, MEDICAID | LOC: SKLAB7 07:00 | PROVIDERS: ATTEND Internal Medicine | DX: E11.9 Type 2 diabetes mellitus without complications (principal); Z79.899 Other long term (current) drug therapy ==

== ENCOUNTER 2020-06-05 17:00 | Emergency (ER) | payer MEDICARE, MEDICAID ==
[~2020-06-05] VITALS: Ht 152.4 cm; Wt 104.1 kg
[~2020-06-05 17:00] MED LIST changes: -BENG1CRE3 EXT; -CEPH500C PO; -DESI13CR2 EXT; -GABA600T4 PO; -GNPSOL OU; -HM S0.65; -HYDR-4571 PO; -TRUL10IN SC; -VASEGEL6 EXT
[2020-06-05] MEDS ORDERED: ACETAMINOPHEN TAB 650MG DOSE (2X325MG) PO ONE (19:15)
[2020-06-05] MEDS ORDERED: NS 500 ML IV ONE (19:15)
--- NOTE | 2020-06-05 20:18 | REPVR ---
PROCEDURE INFORMATION: Exam: CT Head Without Contrast Exam date and time: 06/05/2020 7:32 PM Age: 85 years old Clinical indication: Altered mental status/memory loss TECHNIQUE: Imaging protocol: Computed tomography of the head without contrast. Radiation optimization: All CT scans at this facility use at least one of these dose optimization techniques: automated exposure control; mA and/or kV adjustment per patient size (includes targeted exams where dose is matched to clinical indication); or iterative reconstruction. COMPARISON: CT Head without contrast 01/26/2018 12:29 PM FINDINGS: Brain: There is no CT evidence for an acute large vessel territorial infarct. No acute intracranial hemorrhage is seen. No mass effect, midline shift, or herniation is noted. There are chronic areas of encephalomalacia involving the left frontal lobe and left parietal lobe, including the left middle frontal, left precentral, and left postcentral gyri and left superior and inferior parietal lobules. There are non-specific foci of low attenuation in the periventricular and subcortical white matter, which are likely the sequela of chronic small vessel ischemic injury. Cerebral ventricles: The ventricles are moderately dilated in proportion to the sulci, which is compatible with moderate generalized cerebral volume loss that is similar in appearance compared to the prior CT head on 01/26/2018. Bones/joints: The skull is intact. No suspicious osteolytic or osteoblastic lesion. Paranasal sinuses: The imaged portions of the sinuses are well-aerated. No air-fluid levels are noted in the sinuses. Mastoid air cells: Clear. Orbital cavity: Incidental note is made of bilateral lens implants. The globes and orbits are intact. Vasculature: There are atherosclerotic calcifications of the intracranial portion of the internal carotid arteries. Soft tissues: Unremarkable. No soft tissue fluid collection. IMPRESSION: 1. No acute intracranial abnormality. 2. Chronic areas of encephalomalacia involving the left frontal lobe and left parietal lobe, including the left middle frontal, left precentral, and left postcentral gyri and left superior and inferior parietal lobules. 3. Periventricular and subcortical white matter changes, which are likely the sequela of chronic small vessel ischemic injury. Electronically signed by: Sanchez Carrera On 06/05/2020 20:18:07 PM
--- NOTE | 2020-06-05 20:37 | REPVR ---
PROCEDURE INFORMATION: Exam: XR Chest Exam date and time: 06/05/2020 7:54 PM Age: 85 years old Clinical indication: Altered mental status TECHNIQUE: Imaging protocol: XR of the chest. Views: 1 view. COMPARISON: CR Chest, 2 view PA, Lat 01/21/2019 3:33 PM FINDINGS: Lungs: There is a calcific density projecting over the right lung base, which is stable compared to the prior chest x-ray on 01/21/2019, and may represent a calcified granuloma or calcification in the right breast. No lung consolidation or pulmonary edema is noted. Pleural spaces: Unremarkable. No pleural effusion. No pneumothorax. Heart/Mediastinum: Unremarkable. No cardiomegaly. Vasculature: There are atherosclerotic calcifications of the aortic arch. Bones/joints: There are degenerative changes of the right acromioclavicular joint. IMPRESSION: No radiographic evidence for an acute cardiopulmonary process. Electronically signed by: Sanchez Carrera On 06/05/2020 20:37:28 PM
[2020-06-05 20:46] LABS: BASO # 0.1 10^3/uL (0.0-0.2); BASO % 0.9 % (0.0-1.0); EOS # 0.2 10^3/uL (0.0-0.5); EOS % 1.2 % (0.0-3.0); HEMATOCRIT 34.9 % (36.0-47.0); HEMOGLOBIN 9.9 g/dl (12.0-15.5); LYMPH # 1.7 10^3/uL (1.5-5.0); LYMPH % 12.6 % (24.0-44.0); MEAN CORPUSCULAR HEMOGLOBIN 21.5 pg (27.0-33.0); MEAN CORPUSCULAR HGB CONC 28.4 g/dl (32.0-36.5); MEAN CORPUSCULAR VOLUME 75.9 fl (80.0-96.0); MONO # 1.1 10^3/uL (0.0-0.8); MONO % 8.2 % (2.0-8.0); NEUTROPHILS # 10.5 10^3/uL (1.5-8.5); NEUTROPHILS % 76.7 % (36.0-66.0); PLATELET COUNT, AUTOMATED 365 10^3/uL (150-450); WHITE BLOOD COUNT 13.7 10^3/uL (4.0-10.0)
[2020-06-05 21:33] LABS: ALBUMIN 3.2 GM/DL (3.2-5.2); ALT/SGPT 8 U/L (12-78); BILIRUBIN,DIRECT 0.2 MG/DL (0.0-0.2); BILIRUBIN,TOTAL 0.7 MG/DL (0.2-1.0); BLOOD UREA NITROGEN 14 MG/DL (7-18); CALCIUM LEVEL 8.7 MG/DL (8.8-10.2); CARBON DIOXIDE LEVEL 36 MEQ/L (21-32); CHLORIDE LEVEL 99 MEQ/L (98-107); CK-MB VALUE MASS < 1.0 NG/ML (<3.6); CPK CREATINE PHOSPHOKINASE 57 U/L (26-192); CREATININE FOR GFR 1.01 MG/DL (0.55-1.30); GLOMERULAR FILTRATION RATE 55.3 (>32); GLUCOSE, FASTING 82 MG/DL (70-100); MB/CK RELATIVE INDEX 1.75 (< OR =4); POTASSIUM SERUM 3.1 MEQ/L (3.5-5.1); SODIUM LEVEL 140 MEQ/L (136-145); THYROID STIMULATING HORMONE 0.716 uIU/ML (0.358-3.740); TOTAL PROTEIN 7.1 GM/DL (6.4-8.2); TROPONIN I 0.02 NG/ML (< 0.10)
[2020-06-05] MEDS ORDERED: CEPHALEXIN 500 MG CAP PO ONE (23:05)
[2020-06-05] MEDS ORDERED: POTASSIUM CHLORIDE 10 MEQ SR TABLET PO ONE (23:05)
[2020-06-05] MEDS ORDERED: DESI13CR2 EXT (23:53)
[2020-06-05] MEDS ORDERED: VASEGEL6 EXT (23:53)
[2020-06-05] MEDS ORDERED: HYDR-4571 PO ×2 (23:53)
[2020-06-05] MEDS ORDERED: BENG1CRE3 EXT (23:53)
[2020-06-05] MEDS ORDERED: GNPSOL OU ×2 (23:53)
[2020-06-05] MEDS ORDERED: HM S0.65 (23:53)
[2020-06-05] MEDS ORDERED: TRUL10IN SC (23:53)
[2020-06-05] MEDS ORDERED: INSUHUMDS SC (23:53)
[2020-06-05] MEDS ORDERED: GABA600T4 PO (23:53)
[2020-06-06] MEDS ORDERED: CEPH500C PO (00:17)
[2020-06-06 00:45] VITALS: BP 110/56
--- NOTE | 2020-06-07 12:36 | ECGEPIP ---
[facility] - ED Test Date: 2020-06-05 Pat Name: MANUEL GUZMAN Department: Room: - Gender: Female Vice President Of Business Development: angela : 1935 Requested By: GIO Austin Order Number: [id number] Reading MD: Zahra Junior Measurements Intervals Hannah Rate: 79 P: 65 UT: 178 QRS: -22 QRSD: 82 T: 80 QT: 418 QTc: 479 Interpretive Statements Normal sinus rhythm Possible Anterior infarct , age undetermined NSTTW abnormalities decreased rate 01/14/18 Electronically Signed on 06-07-2020 12:36:24 EDT by Zahra Junior
== END 2020-06-06 01:02 | disposition home or self-care (01) ==
LOC: M ED 17:00 → EDBD 17:00 → M ED 06-06 01:02
DX: N39.0 Urinary tract infection, site not specified (principal); E87.6 Hypokalemia; G93.89 Other specified disorders of brain; I11.9 Hypertensive heart disease without heart failure; I48.91 Unspecified atrial fibrillation; Z86.73 Personal history of transient ischemic attack (TIA), and cerebral infarction without residual deficits; Z79.899 Other long term (current) drug therapy

== ENCOUNTER → 2020-06-05 | Outpatient (REF) | payer MEDICARE, MEDICAID ==
[2020-06-05 15:12] LABS: HEMATOCRIT 32.7 % (36.0-47.0); HEMOGLOBIN 9.2 g/dl (12.0-15.5); MEAN CORPUSCULAR HEMOGLOBIN 21.4 pg (27.0-33.0); MEAN CORPUSCULAR HGB CONC 28.1 g/dl (32.0-36.5); PLATELET COUNT, AUTOMATED 323 10^3/uL (150-450); WHITE BLOOD COUNT 8.5 10^3/uL (4.0-10.0)
[2020-06-05 15:41] LABS: CREATININE FOR GFR 1.02 MG/DL (0.55-1.30); GLOMERULAR FILTRATION RATE 54.7 (>32); POTASSIUM SERUM 3.2 MEQ/L (3.5-5.1)
== END ==
LOC: SKLAB7 14:36
PROVIDERS: ATTEND Internal Medicine
DX: R41.82 Altered mental status, unspecified (principal)

== ENCOUNTER → 2020-06-07 | Outpatient (REF) | payer MEDICARE, MEDICAID ==
[~2020-06-07] MED LIST changes: +BENG1CRE3 EXT; +CEPH500C PO; +DESI13CR2 EXT; +GABA600T4 PO; +GNPSOL OU; +HM S0.65; +HYDR-4571 PO; +TRUL10IN SC; +VASEGEL6 EXT
== END ==
LOC: SKLAB7 13:23
PROVIDERS: ATTEND Internal Medicine
DX: Z20.822 Contact with and (suspected) exposure to COVID-19 (principal)

== ENCOUNTER → 2020-06-08 | Outpatient (REF) | payer MEDICARE, MEDICAID | LOC: SKLAB7 08:00 | PROVIDERS: ATTEND Internal Medicine | DX: E87.6 Hypokalemia (principal) ==

== ENCOUNTER → 2020-06-12 | Outpatient (REF) | payer SELFPAY | PROVIDERS: ATTEND Internal Medicine | DX: Z20.822 Contact with and (suspected) exposure to COVID-19 (principal) ==

== ENCOUNTER → 2020-06-15 | Outpatient (REF) | PROVIDERS: ATTEND Internal Medicine | DX: E87.6 Hypokalemia (principal) ==

== ENCOUNTER → 2020-06-22 | Outpatient (REF) | payer MEDICAID, MEDICARE | PROVIDERS: ATTEND Internal Medicine | DX: E87.6 Hypokalemia (principal) ==

== ENCOUNTER → 2020-06-29 | Outpatient (REF) | payer MEDICARE, MEDICAID ==
[~2020-06-29] MED LIST changes: +GABA-283 PO; -GABA-845 PO
== END ==
PROVIDERS: ATTEND Internal Medicine
DX: E87.6 Hypokalemia (principal)

== ENCOUNTER → 2020-07-03 | Outpatient (REF) | payer MEDICARE, MEDICAID ==
[2020-07-03 11:27] LABS: BASO # 0.1 10^3/uL (0.0-0.2); EOS % 0.3 % (0.0-3.0); HEMATOCRIT 32.9 % (36.0-47.0); HEMOGLOBIN 9.1 g/dl (12.0-15.5); MEAN CORPUSCULAR HEMOGLOBIN 21.1 pg (27.0-33.0); MEAN CORPUSCULAR HGB CONC 27.7 g/dl (32.0-36.5); MEAN CORPUSCULAR VOLUME 76.2 fl (80.0-96.0); MONO # 0.5 10^3/uL (0.0-0.8); MONO % 4.1 % (2.0-8.0); NEUTROPHILS # 9.8 10^3/uL (1.5-8.5); NEUTROPHILS % 85.1 % (36.0-66.0); PLATELET COUNT, AUTOMATED 398 10^3/uL (150-450); RED BLOOD COUNT 4.32 10^6/uL (4.00-5.40); WHITE BLOOD COUNT 11.5 10^3/uL (4.0-10.0)
[2020-07-03 11:53] LABS: ALBUMIN 2.8 GM/DL (3.2-5.2); ALT/SGPT 8 U/L (12-78); AMYLASE 22 U/L (25-115); BILIRUBIN,TOTAL 0.8 MG/DL (0.2-1.0); BLOOD UREA NITROGEN 12 MG/DL (7-18); CALCIUM LEVEL 8.4 MG/DL (8.8-10.2); CARBON DIOXIDE LEVEL 32 MEQ/L (21-32); CHLORIDE LEVEL 106 MEQ/L (98-107); CREATININE FOR GFR 0.76 MG/DL (0.55-1.30); GLOMERULAR FILTRATION RATE > 60.0 (>32); GLUCOSE, FASTING 202 MG/DL (70-100); LIPASE 31 U/L (73-393); SODIUM LEVEL 143 MEQ/L (136-145); TOTAL PROTEIN 6.3 GM/DL (6.4-8.2)
--- NOTE | 2020-07-03 15:25 | REPPI ---
INDICATION: VOMIING. COMPARISON: 05/29/2020 FINDINGS: KUB shows the intestinal gas pattern to be nonspecific. The organ silhouettes insofar as delineated are unremarkable. There is no evidence of free intraperitoneal air. Significant motion artifact limits the exam IMPRESSION: Nonspecific. <Electronically signed by Jimmie Edwards > 07/03/20 [id number]
--- NOTE | 2020-07-03 15:27 | REPPI ---
INDICATION: VOMIING. COMPARISON: 06/05/2020 TECHNIQUE: AP FINDINGS: Once again, there is cardiomegaly accentuated by technique. There is no change in lung gallardo. No acute patchy parenchymal opacities or pleural effusions have developed. There is no change in the osseous structures. IMPRESSION: Stable chronic changes. There is no evidence of acute cardiopulmonary disease. <Electronically signed by Jimmie Edwards > 07/03/20 [id number]
== END ==
PROVIDERS: ATTEND Nurse Practitioner Adult Health
DX: R11.10 Vomiting, unspecified (principal); I51.7 Cardiomegaly

== ENCOUNTER → 2020-07-05 | Outpatient (REF) | payer MEDICARE, MEDICAID ==
[2020-07-05 09:21] LABS: HEMATOCRIT 34.3 % (36.0-47.0); HEMOGLOBIN 9.4 g/dl (12.0-15.5); MEAN CORPUSCULAR HEMOGLOBIN 21.1 pg (27.0-33.0); MEAN CORPUSCULAR HGB CONC 27.4 g/dl (32.0-36.5); MEAN CORPUSCULAR VOLUME 76.9 fl (80.0-96.0); PLATELET COUNT, AUTOMATED 411 10^3/uL (150-450); RED BLOOD COUNT 4.46 10^6/uL (4.00-5.40); WHITE BLOOD COUNT 13.5 10^3/uL (4.0-10.0)
[2020-07-05 09:44] LABS: C REACTIVE PROTEIN QUANTITATIV 1.22 MG/DL (0.00-0.30)
[2020-07-05 11:43] LABS: MAU/CREAT RATIO 39.9 MCG/MG (0.0-30.0)
[2020-07-05 11:45] LABS: APPEARANCE, URINE MANUAL TURBID (CLEAR); COLOR, URINE MANUAL YELLOW (YELLOW)
[2020-07-05 11:46] LABS: BILIRUBIN, URINE MANUAL NEGATIVE (NEGATIVE); BLOOD URINE MANUAL POSITIVE (NEGATIVE); GLUCOSE, URINE (UA) MANUAL NEGATIVE (NEGATIVE); KETONE, URINE MANUAL NEGATIVE (NEGATIVE); LEUKOCYTE ESTERASE, URINE MAN POSITIVE (NEGATIVE); NITRITE, URINE MANUAL POSITIVE (NEGATIVE); PROTEIN, URINE MANUAL 1+ mg/dL (NEGATIVE); UROBILINOGEN, URINE MANUAL NORMAL (NORMAL)
[2020-07-05 11:51] LABS: WBC, URINE TNTC /hpf (0-3)
[2020-07-05 11:53] LABS: AMORPHOUS SEDIMENT, URINE LARGE AMOUNT (NEGATIVE); BACTERIA, URINE LARGE AMOUNT; HYALINE CAST, URINE NONE SEEN /lpf (0-1); SQUAMOUS EPITHELIAL CELL URINE SMALL AMOUNT /hpf (SMALL AMT); TRANSITIONAL EPI CELLS, URINE SMALL AMOUNT /hpf
[2020-07-05 13:39] LABS: TOTAL 25(OH) VITAMIN D 18.1 NG/ML (30.0-100.0)
== END ==
PROVIDERS: ATTEND Internal Medicine
DX: D72.829 Elevated white blood cell count, unspecified (principal); E55.9 Vitamin D deficiency, unspecified; M19.90 Unspecified osteoarthritis, unspecified site; N39.0 Urinary tract infection, site not specified; E11.9 Type 2 diabetes mellitus without complications; Z79.899 Other long term (current) drug therapy

== ENCOUNTER → 2020-07-09 | Outpatient (REF) | payer MEDICARE, MEDICAID ==
[2020-07-09 09:43] LABS: HEMATOCRIT 32.1 % (36.0-47.0); MEAN CORPUSCULAR HEMOGLOBIN 21.2 pg (27.0-33.0); MEAN CORPUSCULAR VOLUME 75.5 fl (80.0-96.0); PLATELET COUNT, AUTOMATED 389 10^3/uL (150-450); RED BLOOD COUNT 4.25 10^6/uL (4.00-5.40); WHITE BLOOD COUNT 12.3 10^3/uL (4.0-10.0)
[2020-07-09 10:01] LABS: ALBUMIN 2.6 GM/DL (3.2-5.2); ALT/SGPT 8 U/L (12-78); BILIRUBIN,TOTAL 0.7 MG/DL (0.2-1.0); BLOOD UREA NITROGEN 13 MG/DL (7-18); CALCIUM LEVEL 8.5 MG/DL (8.8-10.2); CARBON DIOXIDE LEVEL 25 MEQ/L (21-32); CHLORIDE LEVEL 105 MEQ/L (98-107); CREATININE FOR GFR 0.77 MG/DL (0.55-1.30); GLOMERULAR FILTRATION RATE > 60.0 (>32); GLUCOSE, FASTING 160 MG/DL (70-100); POTASSIUM SERUM 3.7 MEQ/L (3.5-5.1); SODIUM LEVEL 139 MEQ/L (136-145); TOTAL PROTEIN 5.7 GM/DL (6.4-8.2)
== END ==
PROVIDERS: ATTEND Internal Medicine
DX: Z79.899 Other long term (current) drug therapy (principal)

== ENCOUNTER → 2020-07-11 | Outpatient (REF) | payer MEDICARE, MEDICAID ==
[2020-07-11 12:52] LABS: HEMOGLOBIN 8.8 g/dl (12.0-15.5); MEAN CORPUSCULAR HGB CONC 27.5 g/dl (32.0-36.5); MEAN CORPUSCULAR VOLUME 76.4 fl (80.0-96.0); PLATELET COUNT, AUTOMATED 348 10^3/uL (150-450); RED BLOOD COUNT 4.19 10^6/uL (4.00-5.40); WHITE BLOOD COUNT 11.5 10^3/uL (4.0-10.0)
[2020-07-11 12:56] LABS: CALCIUM LEVEL 8.6 MG/DL (8.8-10.2); CREATININE FOR GFR 1.01 MG/DL (0.55-1.30); GLOMERULAR FILTRATION RATE 55.3 (>32); POTASSIUM SERUM 3.7 MEQ/L (3.5-5.1)
== END ==
PROVIDERS: ATTEND Internal Medicine
DX: R11.2 Nausea with vomiting, unspecified (principal)

== ENCOUNTER → 2020-07-13 | Outpatient (REF) | payer MEDICARE, MEDICAID ==
[~2020-07-13] MED LIST changes: +ACET1TAB55 PO; +ARIP1TAB4 PO; +ARIP1TAB6 PO; +BUSP10TA PO; +DIVA250T67 PO; +FERR1TAB8 PO; +MIRA3350 PO; +SYST1SOL4 OU; +TRAM50TA2 PO; +TRAZ1TAB11 PO
== END ==
PROVIDERS: ATTEND Internal Medicine
DX: E87.6 Hypokalemia (principal)

== ENCOUNTER → 2020-07-17 | Outpatient (REF) | payer MEDICARE, MEDICAID ==
[~2020-07-17] MED LIST changes: -ACET1TAB55 PO; -ARIP1TAB4 PO; -ARIP1TAB6 PO; -BUSP10TA PO; -DIVA250T67 PO; -FERR1TAB8 PO; -MIRA3350 PO; -SYST1SOL4 OU; -TRAM50TA2 PO; -TRAZ1TAB11 PO
[2020-07-17 11:40] LABS: HEMATOCRIT 31.5 % (36.0-47.0); HEMOGLOBIN 8.6 g/dl (12.0-15.5); MEAN CORPUSCULAR HEMOGLOBIN 21.2 pg (27.0-33.0); MEAN CORPUSCULAR HGB CONC 27.3 g/dl (32.0-36.5); MEAN CORPUSCULAR VOLUME 77.6 fl (80.0-96.0); PLATELET COUNT, AUTOMATED 345 10^3/uL (150-450); RED BLOOD COUNT 4.06 10^6/uL (4.00-5.40); WHITE BLOOD COUNT 10.9 10^3/uL (4.0-10.0)
[2020-07-17 11:56] LABS: BLOOD UREA NITROGEN 10 MG/DL (7-18); CARBON DIOXIDE LEVEL 29 MEQ/L (21-32); CHLORIDE LEVEL 101 MEQ/L (98-107); CREATININE FOR GFR 0.77 MG/DL (0.55-1.30); GLOMERULAR FILTRATION RATE > 60.0 (>32); GLUCOSE, FASTING 197 MG/DL (70-100); POTASSIUM SERUM 3.6 MEQ/L (3.5-5.1); SODIUM LEVEL 138 MEQ/L (136-145)
== END ==
PROVIDERS: ATTEND Internal Medicine
DX: R11.2 Nausea with vomiting, unspecified (principal)

== ENCOUNTER → 2020-07-20 | Outpatient (REF) | payer MEDICARE, MEDICAID | PROVIDERS: ATTEND Internal Medicine | DX: E87.6 Hypokalemia (principal) ==

== ENCOUNTER → 2020-07-27 | Outpatient (REF) | payer MEDICARE, MEDICAID | PROVIDERS: ATTEND Internal Medicine | DX: E87.6 Hypokalemia (principal) ==

== ENCOUNTER → 2020-08-02 | Outpatient (REF) | payer MEDICARE, MEDICAID ==
[2020-08-02 12:15] LABS: NT-PRO BNP 620 PG/ML (<450)
[2020-08-02 13:09] LABS: BASO # 0.1 10^3/uL (0.0-0.2); BASO % 0.4 % (0.0-1.0); EOS # 0.1 10^3/uL (0.0-0.5); EOS % 0.3 % (0.0-3.0); HEMATOCRIT 34.4 % (36.0-47.0); HEMOGLOBIN 9.7 g/dl (12.0-15.5); LYMPH # 1.3 10^3/uL (1.5-5.0); LYMPH % 6.7 % (24.0-44.0); MEAN CORPUSCULAR HEMOGLOBIN 21.8 pg (27.0-33.0); MEAN CORPUSCULAR HGB CONC 28.2 g/dl (32.0-36.5); MEAN CORPUSCULAR VOLUME 77.5 fl (80.0-96.0); MONO % 5.2 % (2.0-8.0); NEUTROPHILS # 17.4 10^3/uL (1.5-8.5); NEUTROPHILS % 86.8 % (36.0-66.0); PLATELET COUNT, AUTOMATED 505 10^3/uL (150-450); RED BLOOD COUNT 4.44 10^6/uL (4.00-5.40)
[2020-08-02 14:21] LABS: ALBUMIN 2.6 GM/DL (3.2-5.2); ALT/SGPT 11 U/L (12-78); BILIRUBIN,TOTAL 0.8 MG/DL (0.2-1.0); BLOOD UREA NITROGEN 18 MG/DL (7-18); CALCIUM LEVEL 8.6 MG/DL (8.8-10.2); CARBON DIOXIDE LEVEL 24 MEQ/L (21-32); CHLORIDE LEVEL 104 MEQ/L (98-107); CREATININE FOR GFR 0.84 MG/DL (0.55-1.30); GLOMERULAR FILTRATION RATE > 60.0 (>32); GLUCOSE, FASTING 254 MG/DL (70-100); POTASSIUM SERUM 3.6 MEQ/L (3.5-5.1); SODIUM LEVEL 138 MEQ/L (136-145); TOTAL PROTEIN 6.2 GM/DL (6.4-8.2)
--- NOTE | 2020-08-02 16:08 | REPPI ---
INDICATION: 142 diarrhea,.. COMPARISON: 07/03/2020. TECHNIQUE: Two AP views abdomen and pelvis. FINDINGS: Air is seen in a mildly distended stomach. There is air seen in portions of nondilated colon. No definite small bowel dilatation is seen. Bowel gas pattern is nonspecific. Metallic internal fixation is seen in the proximal left femur. IMPRESSION: Nonspecific bowel gas pattern. No compelling evidence of bowel obstruction. <Electronically signed by Otto Holt > 08/02/20 [id number]
== END ==
PROVIDERS: ATTEND Internal Medicine
DX: K92.1 Melena (principal)

== ENCOUNTER → 2020-08-03 | Outpatient (REF) | payer MEDICARE, MEDICAID | PROVIDERS: ATTEND Internal Medicine | DX: E87.6 Hypokalemia (principal) ==

== ENCOUNTER → 2020-08-03 | Outpatient (CLI) | payer MEDICARE, MEDICAID ==
--- NOTE | 2020-08-03 12:28 | REP ---
INDICATION: CONSTIPATION COMPARISON: One hundred thirteen. TECHNIQUE: CT Scan of the abdomen and pelvis was performed without intravenous contrast. Sagittal and coronal reconstruction images performed. The study is somewhat limited due to patient motion. FINDINGS: Lung bases: Unremarkable. There is a small hiatal hernia. Liver: Grossly unremarkable. Gallbladder: There are multiple gallstones in the gallbladder without evidence of gallbladder wall thickening or edema.. Spleen: Grossly unremarkable. Adrenals: Normal. Pancreas: Grossly unremarkable.. Kidneys: No hydronephrosis or nephrolithiasis. Ureters demonstrate no dilatation or calculus. Small and large bowel: There are several sigmoid diverticula present with mild diffuse thickening of the sigmoid colon and stranding of the pericolonic fat. This may indicate an element of acute or chronic diverticulitis. There is no free air or obstruction. No abscess is seen.. Free fluid: None. Abdominal aorta: No aneurysm. Adenopathy: None. Appendix: Not inflamed. Osseous structures: There are degenerative changes of the spine without compression fracture. There is metallic internal fixation in the proximal left femur. Pelvis: No mass. No bladder calculus seen. Prior hysterectomy. IMPRESSION: Multiple gallstones or gallbladder. Several sigmoid diverticula present with mild diffuse thickening of the sigmoid and stranding of pericolonic fat. This may indicate an element of acute or chronic diverticulitis. No free air or obstruction. No abscess. <Electronically signed by Otto Holt > 08/03/20 [id number]
== END ==
LOC: M RAD 11:56
PROVIDERS: ATTEND Nurse Practitioner Adult Health
DX: K59.00 Constipation, unspecified (principal); K80.20 Calculus of gallbladder without cholecystitis without obstruction

== ENCOUNTER → 2020-08-06 | Outpatient (REF) | payer MEDICARE, MEDICAID ==
[2020-08-06 09:41] LABS: HEMATOCRIT 35.7 % (36.0-47.0); MEAN CORPUSCULAR HEMOGLOBIN 21.9 pg (27.0-33.0); MEAN CORPUSCULAR VOLUME 78.1 fl (80.0-96.0); PLATELET COUNT, AUTOMATED 335 10^3/uL (150-450); RED BLOOD COUNT 4.57 10^6/uL (4.00-5.40); WHITE BLOOD COUNT 10.6 10^3/uL (4.0-10.0)
[2020-08-06 10:09] LABS: ALBUMIN 2.7 GM/DL (3.2-5.2); ALT/SGPT 11 U/L (12-78); BILIRUBIN,TOTAL 0.6 MG/DL (0.2-1.0); BLOOD UREA NITROGEN 11 MG/DL (7-18); CALCIUM LEVEL 9.1 MG/DL (8.8-10.2); CARBON DIOXIDE LEVEL 29 MEQ/L (21-32); CHLORIDE LEVEL 103 MEQ/L (98-107); CREATININE FOR GFR 0.66 MG/DL (0.55-1.30); GLOMERULAR FILTRATION RATE > 60.0 (>32); GLUCOSE, FASTING 162 MG/DL (70-100); POTASSIUM SERUM 3.5 MEQ/L (3.5-5.1); SODIUM LEVEL 139 MEQ/L (136-145); TOTAL PROTEIN 6.2 GM/DL (6.4-8.2)
== END ==
PROVIDERS: ATTEND Internal Medicine
DX: K57.92 Diverticulitis of intestine, part unspecified, without perforation or abscess without bleeding (principal)

== ENCOUNTER → 2020-08-10 | Outpatient (REF) | payer MEDICARE, MEDICAID ==
[~2020-08-10] MED LIST changes: +ACET1TAB55 PO; +ARIP1TAB4 PO; +ARIP1TAB6 PO; +BUSP10TA PO; +DIVA250T67 PO; +FERR1TAB8 PO; +MIRA3350 PO; +SYST1SOL4 OU; +TRAM50TA2 PO; +TRAZ1TAB11 PO
[2020-08-10 09:35] LABS: HEMATOCRIT 31.1 % (36.0-47.0); HEMOGLOBIN 8.9 g/dl (12.0-15.5); MEAN CORPUSCULAR HGB CONC 28.6 g/dl (32.0-36.5); PLATELET COUNT, AUTOMATED 373 10^3/uL (150-450); RED BLOOD COUNT 4.04 10^6/uL (4.00-5.40); WHITE BLOOD COUNT 9.2 10^3/uL (4.0-10.0)
[2020-08-10 10:21] LABS: ERYTHROCYTE SEDIMENTATION RATE 40 mm/hr (0-30)
[2020-08-10 10:27] LABS: BLOOD UREA NITROGEN 14 MG/DL (7-18); C REACTIVE PROTEIN QUANTITATIV 4.59 MG/DL (0.00-0.30); CALCIUM LEVEL 8.1 MG/DL (8.8-10.2); CARBON DIOXIDE LEVEL 28 MEQ/L (21-32); CHLORIDE LEVEL 104 MEQ/L (98-107); CREATININE FOR GFR 0.66 MG/DL (0.55-1.30); GLOMERULAR FILTRATION RATE > 60.0 (>32); GLUCOSE, FASTING 136 MG/DL (70-100); POTASSIUM SERUM 2.9 MEQ/L (3.5-5.1); SODIUM LEVEL 139 MEQ/L (136-145)
== END ==
PROVIDERS: ATTEND Internal Medicine
DX: K57.92 Diverticulitis of intestine, part unspecified, without perforation or abscess without bleeding (principal)

== ENCOUNTER → 2020-08-17 | Outpatient (REF) | payer MEDICARE, MEDICAID ==
[~2020-08-17] MED LIST changes: -ACET1TAB55 PO; -ARIP1TAB4 PO; -ARIP1TAB6 PO; -BUSP10TA PO; -DIVA250T67 PO; -FERR1TAB8 PO; -MIRA3350 PO; -SYST1SOL4 OU; -TRAM50TA2 PO; -TRAZ1TAB11 PO
== END ==
PROVIDERS: ATTEND Nurse Practitioner Adult Health
DX: Z53.8 Procedure and treatment not carried out for other reasons (principal)

== ENCOUNTER → 2020-08-21 | Outpatient (REF) | payer MEDICARE, MEDICAID ==
[~2020-08-21] MED LIST changes: +ACET1TAB55 PO; +ARIP1TAB4 PO; +ARIP1TAB6 PO; +BUSP10TA PO; +DIVA250T67 PO; +FERR1TAB8 PO; +MIRA3350 PO; +SYST1SOL4 OU; +TRAM50TA2 PO; +TRAZ1TAB11 PO
== END ==
PROVIDERS: ATTEND Nurse Practitioner Adult Health
DX: Z20.822 Contact with and (suspected) exposure to COVID-19 (principal)

== ENCOUNTER → 2020-10-30 | Outpatient (REF) | payer MEDICARE, MEDICAID ==
[~2020-10-30] MED LIST changes: -TRAM50TA2 PO
[2020-10-30 10:44] LABS: HEMATOCRIT 35.3 % (36.0-47.0); HEMOGLOBIN 10.9 g/dl (12.0-15.5); MEAN CORPUSCULAR HEMOGLOBIN 27.8 pg (27.0-33.0); MEAN CORPUSCULAR HGB CONC 30.9 g/dl (32.0-36.5); MEAN CORPUSCULAR VOLUME 90.1 fl (80.0-96.0); PLATELET COUNT, AUTOMATED 171 10^3/uL (150-450); RED BLOOD COUNT 3.92 10^6/uL (4.00-5.40); WHITE BLOOD COUNT 6.1 10^3/uL (4.0-10.0)
[2020-10-30 11:15] LABS: ALBUMIN 1.7 GM/DL (3.2-5.2); ALT/SGPT < 6 U/L (12-78); BILIRUBIN,TOTAL 0.3 MG/DL (0.2-1.0); BLOOD UREA NITROGEN 8 MG/DL (7-18); CARBON DIOXIDE LEVEL 32 MEQ/L (21-32); CHLORIDE LEVEL 103 MEQ/L (98-107); GLOMERULAR FILTRATION RATE > 60.0 (>32); GLUCOSE, FASTING 185 MG/DL (70-100); POTASSIUM SERUM 3.9 MEQ/L (3.5-5.1); SODIUM LEVEL 140 MEQ/L (136-145); TOTAL PROTEIN 4.6 GM/DL (6.4-8.2)
== END ==
PROVIDERS: ATTEND Internal Medicine
DX: E11.9 Type 2 diabetes mellitus without complications (principal); I50.9 Heart failure, unspecified; D64.9 Anemia, unspecified

== ENCOUNTER 2020-11-07 16:38 | Inpatient (IN) | payer MEDICARE, MEDICAID ==
[~2020-11-07] VITALS: Ht 152.4 cm; Wt 92.6 kg
[~2020-11-07 16:38] MED LIST changes: -ACET1TAB55 PO; -ARIP1TAB4 PO; -ARIP1TAB6 PO; -BUSP10TA PO; -DIVA250T67 PO; -FERR1TAB8 PO; -MIRA3350 PO; -SYST1SOL4 OU; -TRAZ1TAB11 PO
[2020-11-07] MEDS ORDERED: MORPHINE 2 MG/ML 1ML VIAL (J2270) IV ONE (17:00)
[2020-11-07] MEDS ORDERED: DIVA250T67 PO (17:32)
[2020-11-07] MEDS ORDERED: ARIP1TAB4 PO (17:32)
[2020-11-07] MEDS ORDERED: BUSP10TA PO (17:32)
[2020-11-07] MEDS ORDERED: SYST1SOL4 OU (17:32)
[2020-11-07] MEDS ORDERED: ARIP1TAB6 PO (17:32)
[2020-11-07 17:57] LABS: BASO # 0.1 10^3/uL (0.0-0.2); BASO % 0.7 % (0.0-1.0); EOS # 0.1 10^3/uL (0.0-0.5); EOS % 0.9 % (0.0-3.0); HEMATOCRIT 40.1 % (36.0-47.0); HEMOGLOBIN 12.8 g/dl (12.0-15.5); LYMPH # 1.4 10^3/uL (1.5-5.0); LYMPH % 11.1 % (24.0-44.0); MEAN CORPUSCULAR HEMOGLOBIN 28.4 pg (27.0-33.0); MEAN CORPUSCULAR HGB CONC 31.9 g/dl (32.0-36.5); MEAN CORPUSCULAR VOLUME 88.9 fl (80.0-96.0); MONO # 1.4 10^3/uL (0.0-0.8); MONO % 10.9 % (2.0-8.0); NEUTROPHILS # 9.6 10^3/uL (1.5-8.5); NEUTROPHILS % 75.8 % (36.0-66.0); PLATELET COUNT, AUTOMATED 226 10^3/uL (150-450); RED BLOOD COUNT 4.51 10^6/uL (4.00-5.40); WHITE BLOOD COUNT 12.7 10^3/uL (4.0-10.0)
--- NOTE | 2020-11-07 17:58 | REP ---
INDICATION: fall. COMPARISON: Comparison right knee radiographs are from January 21, 2019. TECHNIQUE: 6 views of the right femur are provided. FINDINGS: Six views of the right femur demonstrate a transversely oriented fracture through the distal femoral metaphysis with posterior displacement and some impaction. There is diffuse osteoporosis. Osteoarthritis is seen in the medial and lateral tibiofemoral compartments similar to the prior study. No proximal tibial or fibular fracture is appreciated. There is vascular calcification. The proximal femur and mid femur appear intact. Mild osteoarthritic spurring is seen at the hip. IMPRESSION: Distal femoral metaphyseal fracture with some impaction and posterior displacement. Diffuse osteoporosis. Osteoarthritis at the knee and hip. <Electronically signed by Jeremie Chakraborty > 11/07/20 [id number]
--- NOTE | 2020-11-07 17:59 | REP ---
INDICATION: fall. COMPARISON: None. TECHNIQUE: Four views of the right calf are provided. FINDINGS: Four views of the right tib fib demonstrate a fracture of the distal femur with some impaction and slight posterior displacement. This is described in the femur report. There is mild pretibial soft tissue swelling and vascular calcification is noted. No tibial or fibular fracture is appreciated. There is diffuse osteoporosis. No opaque foreign body noted. IMPRESSION: Femoral fracture as noted in the femur series. Diffuse osteoporosis and vascular calcification. No tib fib fracture seen. <Electronically signed by Jeremie Chakraborty > 11/07/20 [id number]
--- NOTE | 2020-11-07 18:01 | REP ---
INDICATION: fall. COMPARISON: Comparison radiographs of the right knee are from January 21, 2019. FINDINGS: Four views of the demonstrate a transversely oriented somewhat impacted fracture of the distal femoral metaphysis with posterior displacement as seen on the femur series. There is diffuse osteoporosis which is advanced. There is advanced osteoarthritis with joint space narrowing and some sclerosis in the medial compartment of the knee. Chondrocalcinosis is noted laterally. There is patellofemoral compartment narrowing. The study does not include AP radiograph. Vascular calcification is noted. Clothing artifact is seen. IMPRESSION: Distal femoral metaphyseal fracture. Osteoporosis. Osteoarthritis. <Electronically signed by Jeremie Chakraborty > 11/07/20 [id number]
[2020-11-07 18:18] LABS: CALCIUM LEVEL 8.3 MG/DL (8.8-10.2); CREATININE FOR GFR 1.39 MG/DL (0.55-1.30); GLOMERULAR FILTRATION RATE 38.3 (>32); MAGNESIUM LEVEL 2.1 MG/DL (1.8-2.4); POTASSIUM SERUM 4.4 MEQ/L (3.5-5.1)
[2020-11-07] MEDS ORDERED: INSULANT SC ×2 (18:57)
[2020-11-07] MEDS ORDERED: FERR1TAB8 PO (18:57)
[2020-11-07] MEDS ORDERED: MIRA3350 PO (18:57)
[2020-11-07] MEDS ORDERED: TRAZ1TAB11 PO (18:57)
[2020-11-07] MEDS ORDERED: ACET1TAB55 PO (18:57)
[2020-11-07] MEDS ORDERED: HOME MED LIST COMPLETE! XX SCH (19:00)
--- NOTE | 2020-11-07 19:47 | REPVR ---
PROCEDURE INFORMATION: Exam: CT Head Without Contrast Exam date and time: 11/07/2020 6:57 PM Age: 85 years old Clinical indication: Injury or trauma; Fall; Blunt trauma (contusions or hematomas) TECHNIQUE: Imaging protocol: Computed tomography of the head without contrast. Radiation optimization: All CT scans at this facility use at least one of these dose optimization techniques: automated exposure control; mA and/or kV adjustment per patient size (includes targeted exams where dose is matched to clinical indication); or iterative reconstruction. COMPARISON: CT Head without contrast 06/05/2020 7:31 PM FINDINGS: Brain: Encephalomalacia in the left frontal and parietal lobe and in the right parietal lobe. There are moderate periventricular and subcortical lucencies consistent with chronic microvascular ischemic changes. The robbins-white differentiation is maintained. No hemorrhage. No edema. Cerebral ventricles: No ventriculomegaly. Paranasal sinuses: Visualized sinuses are unremarkable. No fluid levels. Mastoid air cells: Visualized mastoid air cells are well aerated. Bones/joints: Unremarkable. No acute fracture. Soft tissues: Unremarkable. IMPRESSION: No acute intracranial abnormality. Chronic microvascular ischemic changes. Electronically signed by: Rg Haley On 11/07/2020 19:46:50 PM
[2020-11-07] MEDS ORDERED: ACETAMINOPHEN TAB 650MG DOSE (2X325MG) PO PRN (19:50)
[2020-11-07] MEDS ORDERED: DEXTROSE 50% 50 ML SYRINGE IV PRN (20:00)
[2020-11-07] MEDS ORDERED: GLUCOSE 4GM CHEW TABLET PO PRN (20:00)
[2020-11-07] MEDS ORDERED: GLUCAGON INJ 1MG VIAL SC PRN (20:00)
[2020-11-07] MEDS ORDERED: propofoL 200 MG/20 ML VIAL IV.PROC PRN (20:15)
[2020-11-07] MEDS ORDERED: NS 1,000 ML IV SCH (20:15)
[2020-11-07] MEDS ORDERED: traZODone 25MG PER 1/2 TABLET PO SCH (21:00)
[2020-11-07] MEDS ORDERED: HumaLOG INSULIN (NovoLOG) PER UNIT SC SCH (21:00)
[2020-11-07] MEDS ORDERED: LEVEMIR (INSULIN DETEMIR) 1 UNITS/0.01ML SC SCH (21:00)
[2020-11-07 21:16] LABS: RSV AMPLIFICATION NEGATIVE (NEGATIVE)
[2020-11-07 22:00] VITALS: BP 162/61
[2020-11-07] MEDS ORDERED: MORPHINE 2 MG/ML 1ML VIAL (J2270) IV PRN (22:00)
--- NOTE | 2020-11-07 22:02 | HPEPDOC ---
General Date of Admission 11/07/20 Date of Service: Nov 07, 2020 Chief Complaint The patient is a 85-year-old female admitted with a reason for visit of FALL. Source: Patient, EMS notes reviewed, longterm records Exam Limitations: Clinical conditions, Hard of hearing History of Present Illness Ritu Hill is an 85-year-old female with significant history of diabetes, obesity, TIA, dementia, neuropathy, GERD, major depressive disorder and wheelc hair-bound who presents with right leg pain after fall in long term. She is alert oriented x2-3. Patient is very agitated and upset that she has to stay in the hospital as "upstairs to have disease". Given her behavioral agitation and there is limitation to exam. She is a poor historian and underwent CT head to ensure with fall no injury as she is also on Eliquis. CT head nonacute. Nonfoc al neuro exam however she does have cataracts and questionable regarding visual ability. Majority of HPI and history gathered from records and staff who had spoke with patient's power of city attorney-daughter Fara. Reportedly, patient is wheelchair-bound and she was found caught between the wall and her wheelchair. Patient is typically nonambulatory. Review of systems limited given aforementioned limits of patient's interaction. Patient underwent x-rays and found to have a right distal femur fracture. Ortho consulted and closed reduction performed; cast placed. Patient seen after procedure with propofol-this may be contributing to her being poor historian. Patient will be admitted for further evaluation management presenting concerns. Home Medications Scheduled Apixaban (Eliquis) 2.5 Mg Tablet, 2.5 MG PO BID, (Reported) Aripiprazole (Aripiprazole) 2 Mg Tablet, 2 MG PO DAILY, (Reported) Aripiprazole (Aripiprazole) 5 Mg Tablet, 5 MG PO DAILY, (Reported) Buspirone HCl (Buspirone HCl) 10 Mg Tablet, 10 MG PO BID, (Reported) Diltiazem Hcl (Cardizem Cd) 240 Mg Cap.er.24h, 240 MG PO DAILY, (Reported) Divalproex Sodium (Divalproex Sodium) 250 Mg Tablet.dr, 250 MG PO BID, (Reported) Ferrous Sulfate (Ferrous Sulfate) 325 Mg Tablet, 325 MG PO BID, (Reported) Furosemide (Furosemide) 40 Mg Tab, 60 MG PO DAILY, (Reported) Insulin Glargine (Lantus) 100 Unit/1 Ml Vial, 14 UNITS SC QAM, (Reported) Insulin Glargine (Lantus) 100 Unit/1 Ml Vial, 5 UNITS SC QPM, (Reported) Polyethylene Glycol 3350 (Miralax) 119 Gm Powder, 17 GM PO Q2D, (Reported) dilute in 8 ounces of water or juice Propylene Glycol/Peg 400/Pf (Systane 0.3-0.4% Eye Drop) 1 Each Droperette, 1 DROP OU DAILY, (Reported) Trazodone HCl (Trazodone HCl) 50 Mg Tablet, 25 MG PO QHS, (Reported) Scheduled PRN Acetaminophen (Acetaminophen) 650 Mg Supp.rect, 650 MG SD Q4H PRN for PAIN / FEVER, (Reported) Acetaminophen (Acetaminophen) 325 Mg Tablet, 650 MG PO Q4H PRN for PAIN LEVEL 1- 4, (Reported) Bisacodyl (Dulcolax) 10 Mg Sup, 10 MG SD DAILY PRN for CONSTIPATION, (Reported) Glucagon,Human Recombinant (Glucagon Emergency Kit) 1 Mg Vial, 1 MG IM ASDI RECTED PRN for LOW BLOOD SUGAR, (Reported) Milk Of Magnesia (Milk of Magnesia) 2,400 Mg/10 Ml Oral.susp, 10 ML PO DAILY PRN for CONSTIPATION, (Reported) Sodium Phosphate,Alcona-Dibasic (Enema Ready To Use) 1 Cynthia Cynthia, 1 CYNTHIA SD DAILY PRN for CONSTIPATION, (Reported) Allergies Coded Allergies: Penicillins (Verified Allergy, Mild, rash, 07/06/19) nitrofurantoin (Verified Allergy, Mild, rash, 07/06/19) aspirin (Verified Adverse Reaction, Mild, gi upset, 07/06/19) Past Medical History Medical History diabetes, obesity, TIA, dementia, neuropathy, cataracts, right hearing aid, GERD, major depressive disorder and wheelchair-bound Surgical History Hysterectomy, left hip plate Family History Significant Family History: No pertinent family hx Social History * Smoker: Denies Alcohol: Denies Drugs: denies Recent Travel/Sick Contacts: Denies: Recent travel, Recent sick contacts Psychosocial History: Dementia, Depression Resides at [facility]; daughter Fara is patient's POA A-FIB/CHADSVASC A-FIB History Current/History of A-Fib/PAF?: Yes Current PO Anticoag Therapy: Yes Review of Systems Other systems Unobtainable given patient refusal Physical Examination General Exam: Positive: Alert, No Acute Distress; Negative: Cooperative Eye Exam: Positive: Conjunctiva & lids normal, EOMI; Negative: Sclera icteric ENT Exam: Positive: Atraumatic, Mucous membr. moist/pink, Pharynx Normal Neck Exam: Positive: Supple; Negative: JVD, thyromegaly Chest Exam: Positive: Clear to auscultation, Normal air movement Heart Exam: Positive: Tachycardic, Regular Rhythm, Normal S1, Normal S2; Negative: Murmurs, Rubs Abdomen Exam: Positive: Normal bowel sounds, Soft, Other (+ Body habitus); Negative: Tenderness, Hepatospenomegaly Extremity Exam: Positive: Normal pulses, Other (Cast right lower extremity); Negative: Clubbing, Cyanosis, Edema Skin Exam: Positive: Nl turgor and temperature; Negative: Breakdown, Lesion Neuro Exam: Positive: Normal Speech; Negative: Normal Gait Psych Exam: Negative: Mental status NL, Mood NL (Patient agitated and screaming by end of exam to "leave me alone"), Oriented x 3 Vital Signs Vital Signs Date Time Temp Pulse Resp B/P (MAP) Pulse Ox O2 Delivery O2 Flow Rate FiO2 11/07/20 18:50 18 11/07/20 16:52 98.6 90 137/58 (84) 98 Room Air Laboratory Data Labs 24H Laboratory Tests 2 11/07/20 17:05: Immature Granulocyte % (Auto) 0.6, Neutrophils (%) (Auto) 75.8H, Lymphocytes (%) (Auto) 11.1L, Monocytes (%) (Auto) 10.9H, Eosinophils (%) (Auto) 0.9, Basophils (%) (Auto) 0.7, Neutrophils # (Auto) 9.6H, Lymphocytes # (Auto) 1.4L, Monocytes # (Auto) 1.4H, Eosinophils # (Auto) 0.1, Basophils # (Auto) 0.1, Nucleated Red Blood Cells % (auto) 0.0, Anion Gap 8, Glomerular Filtration Rate 38.3, Calcium Level 8.3L, Magnesium Level 2.1 CBC/BMP Laboratory Tests 11/07/20 17:05 Assessment/Plan 1. Distal femur fracture 03/20 fall: Likely mechanical given described, but monitor for underlying cardiogenic predisposing scenarios. CT head nonacute. Fall precaution tele AM labs Appreciate ortho recc- pt had closed reduction in ED. Plan for physical therapy per Ortho recommendations 2. SHILOH: Cr 1.3 from 0.8. Unknown patient p.o. intake recently. Likely complicated by home lasix use. Monitor pt fluid balance, UO. Is and Os. Check UA, ck Hydration with consideration gvien pt takes lasix at home AM labs Avoid nephrotoxins as able. Lasix held presently, no echo on file Consider nephrology pend pt response 3. Leukocytosis and lactic acidosis: wbc 12.7, lactic 2.9. Likely reactive. Plan for chest x-ray and UA. Check procalcitonin. Consider differentials and empiric coverage. Patient will be hydrated and lactic recheck. 4. Edema in pt with ?HFrEF: likely body habitus component. Pt takes lasix 60mg home med. No echo on file. No reported CHF, although pt limited historian. BNP 523. Plan for hydration given above. Consider echo and continuation lasix pend course. 5. DM: Monitor patient blood glucose. ACHS. Sliding scale insulin and continue home long-acting. A.m. labs. 6. History PAF: Patient telemetry. Continue home Cardizem. Monitor and replete electrolytes accordingly. Continue OAC. 7. Obesity: Complicates care 8. Dementia with mood disturbance: Monitor mood, encourage nonpharmacologic methods to manage. De-escalation techniques accordingly. Continue home medications. As needed antiagitation. DVT Ppx: Continue eliquis CODE: DNR/DNI. MOLST on chart Dispo: anticipate 2 midnights and PT recommendations with discharge. Plan / VTE VTE Prophylaxis Ordered?: Yes CIRO REID NP Nov 07, 2020 19:57
--- NOTE | 2020-11-07 22:25 | CR.PDOC ---
General Date of Consultation: Nov 07, 2020 Consultation REASON FOR CONSULTATION/CHIEF COMPLAINT: Unwitnessed fall, right distal femur Past medical history obtained from admission history and physical and patient's daughter HISTORY OF PRESENT ILLNESS: The patient is a resident of [facility]. She is a nonambulatory patient that is wheelchair- bound associated with a history of 3 strokes leaving her with right sided lower extremity weakness. Reportedly the patient was trying to get to her dresser and somehow fell between her dresser in the wheelchair and trapping her leg there. She was brought to the emergency room for evaluation for her pain. The patient is quite hard of hearing and as per her daughter who I contacted by phone, who is her healthcare proxy, she does have some issues with dementia which can be sporadic. ALLERGIES: Please see below. HOME MEDICATIONS: Please see below. Home Medications Scheduled Apixaban (Eliquis) 2.5 Mg Tablet, 2.5 MG PO BID, (Reported) Aripiprazole (Aripiprazole) 2 Mg Tablet, 2 MG PO DAILY, (Reported) Aripiprazole (Aripiprazole) 5 Mg Tablet, 5 MG PO DAILY, (Reported) Buspirone HCl (Buspirone HCl) 10 Mg Tablet, 10 MG PO BID, (Reported) Diltiazem Hcl (Cardizem Cd) 240 Mg Cap.er.24h, 240 MG PO DAILY, (Reported) Divalproex Sodium (Divalproex Sodium) 250 Mg Tablet.dr, 250 MG PO BID, (Reported) Ferrous Sulfate (Ferrous Sulfate) 325 Mg Tablet, 325 MG PO BID, (Reported) Furosemide (Furosemide) 40 Mg Tab, 60 MG PO DAILY, (Reported) Insulin Glargine (Lantus) 100 Unit/1 Ml Vial, 14 UNITS SC QAM, (Reported) Insulin Glargine (Lantus) 100 Unit/1 Ml Vial, 5 UNITS SC QPM, (Reported) Polyethylene Glycol 3350 (Miralax) 119 Gm Powder, 17 GM PO Q2D, (Reported) dilute in 8 ounces of water or juice Propylene Glycol/Peg 400/Pf (Systane 0.3-0.4% Eye Drop) 1 Each Droperette, 1 DROP OU DAILY, (Reported) Trazodone HCl (Trazodone HCl) 50 Mg Tablet, 25 MG PO QHS, (Reported) Scheduled PRN Acetaminophen (Acetaminophen) 650 Mg Supp.rect, 650 MG CA Q4H PRN for PAIN / FEVER, (Reported) Acetaminophen (Acetaminophen) 325 Mg Tablet, 650 MG PO Q4H PRN for PAIN LEVEL 1- 4, (Reported) Bisacodyl (Dulcolax) 10 Mg Sup, 10 MG CA DAILY PRN for CONSTIPATION, (Reported) Glucagon,Human Recombinant (Glucagon Emergency Kit) 1 Mg Vial, 1 MG IM ASDIRECTED PRN for LOW BLOOD SUGAR, (Reported) Milk Of Magnesia (Milk of Magnesia) 2,400 Mg/10 Ml Oral.susp, 10 ML PO DAILY PRN for CONSTIPATION, (Reported) Sodium Phosphate,Mobile-Dibasic (Enema Ready To Use) 1 Nicole Nicole, 1 NICOLE CA DAILY PRN for CONSTIPATION, (Reported) Allergies Coded Allergies: Penicillins (Verified Allergy, Mild, rash, 07/06/19) nitrofurantoin (Verified Allergy, Mild, rash, 07/06/19) aspirin (Verified Adverse Reaction, Mild, gi upset, 07/06/19) Past Medical History Past Medical History Medical History diabetes, obesity, TIA, dementia, neuropathy, cataracts, right hearing aid, GERD, major depressive disorder and wheelchair-bound Surgical History Hysterectomy, left hip plate Family History Significant Family History: No pertinent family hx Social History * Smoker: Denies Alcohol: Denies Drugs: denies Recent Travel/Sick Contacts: Denies: Recent travel, Recent sick contacts Psychosocial History: Dementia, Depression Resides at [facility]; daughter Fara is patient's POA PHYSICAL EXAMINATION: VITAL SIGNS: Please see below. GENERAL APPEARANCE: Patient is lying supine. She is comfortable when she is not moving her leg or otherwise The right lower extremity is held in a flexed position and external rotation. She does have a obese body habitus with large soft tissue coverage of her thigh and lower extremities. There is a small abrasion approximately 2 cm on the right lateral calf. As far as the patient is compliant with the physical exam, she appears to be gr ossly neurovascular intact to light touch to her right foot. She is able to move her toes and she has a palpable dorsalis pedis and posterior tibial pulse. LABORATORY DATA: Please see below. X-ray: X-ray imaging was independently reviewed by myself today. This demonstrated a very distal supracondylar fracture of the right femur. The patient demonstrates significant osteoporotic bone to the right lower extremity likely associated with her nonweightbearing status. Appears to be in a flexed p osition. ASSESSMENT/PLAN: 1. I spoke with the patient and also with her daughter who is the healthcare proxy. I discussed the risks and benefits of operative versus conservative treatment. Given the fact that the patient has very poor osteoporotic bone and she has significant right lower extremity control associated with her strokes and she is nonambulatory I have suggested that she may better be treated and conservative treatment and a cast. I did explain that this is not an ideal situation and there are risks associated with skin complications, loss of reduction, malreduction and painful nonunion; however the daughter is in agreement that she would like to proceed with the conservative treatment as opposed to operative treatment. I am in agreement with her decision. I do not believe that the patient would make a good surgical candidate given her medical comorbidities and nonambulatory status. The daughter who is the health power of workers compensation attorney signed consent for the casting and closed reduction under conscious sedation. A circumferential plaster cast was applied in the emergency room. Using fluoroscopy with the mini C arm which was difficult given the patient's short leg and position of the fracture was noted that there was still likely some flexed positioning of the femur after a reduction attempt was performed. This is fairly difficult as the patient does have a significant thigh soft tissue envelope. There is also likely some impaction of the bone in the flexed position. With the leg in extension it was noted though there is a slight flexion contracture which seem to be bilateral. The position was excepted and some Betadine was placed over the small abrasion followed by a Telfa and paper tape dressing. Web roll was placed circumferentially from the level of the ankle up to the mid to high upper third of the thigh. Plaster material was then placed in a circumferential manner for a stoved pipe cast. It was noted that there was some plaster that was very close to the skin in the posterior aspect of the cast. This was removed with a cast saw and there was some cotton left in this area for padding. Post casting, the patient had a palpable dorsalis pedis pulse she was noted to be moving her toes. And she indicated that she could still had light sensation intact to her right foot X-ray imaging will be obtained for the right femur/knee tomorrow and these images will be reviewed. The patient will be in this cast for approximately 2 weeks in order to allow the fracture site to consolidate and at that point she will likely be placed in a fiberglass cast The patient will be admitted in the interim under the hospitalist service until she is stable enough for discharge back to [place]. 2. . Vital Signs/I&O Vital Signs Date Time Temp Pulse Resp B/P (MAP) Pulse Ox O2 Delivery O2 Flow Rate FiO2 11/07/20 21:28 154/70 (98) 11/07/20 21:23 93 98 11/07/20 21:13 Nasal Cannula 4.0 11/07/20 18:50 18 11/07/20 16:52 98.6 Laboratory Data Labs 24H Laboratory Tests 2 11/07/20 17:05: Immature Granulocyte % (Auto) 0.6, Neutrophils (%) (Auto) 75.8H, Lymphocytes (%) (Auto) 11.1L, Monocytes (%) (Auto) 10.9H, Eosinophils (%) (Auto) 0.9, Basophils (%) (Auto) 0.7, Neutrophils # (Auto) 9.6H, Lymphocytes # (Auto) 1.4L, Monocytes # (Auto) 1.4H, Eosinophils # (Auto) 0.1, Basophils # (Auto) 0.1, Nucleated Red Blood Cells % (auto) 0.0, Anion Gap 8, Glomerular Filtration Rate 38.3, Calcium Level 8.3L, Magnesium Level 2.1, Total Creatine Kinase 29, PJ-Oso-V-Type Natriuretic Peptide 523H 11/07/20 20:11: Coronavirus (COVID-19)(PCR) NEGATIVE, Influenza Type A (RT-PCR) NEGATIVE, Influenza Type B (RT-PCR) NEGATIVE, Respiratory Syncytial Virus (PCR) NEGATIVE 11/07/20 20:14: Procalcitonin <0.05 11/07/20 20:29: Lactic Acid Level 2.9*H CBC/BMP Laboratory Tests 11/07/20 17:05 Allergies Coded Allergies: Penicillins (Verified Allergy, Mild, rash, 07/06/19) nitrofurantoin (Verified Allergy, Mild, rash, 07/06/19) aspirin (Verified Adverse Reaction, Mild, gi upset, 07/06/19) Home Medications Scheduled Apixaban (Eliquis) 2.5 Mg Tablet, 2.5 MG PO BID, (Reported) Aripiprazole (Aripiprazole) 2 Mg Tablet, 2 MG PO DAILY, (Reported) Aripiprazole (Aripiprazole) 5 Mg Tablet, 5 MG PO DAILY, (Reported) Buspirone HCl (Buspirone HCl) 10 Mg Tablet, 10 MG PO BID, (Reported) Diltiazem Hcl (Cardizem Cd) 240 Mg Cap.er.24h, 240 MG PO DAILY, (Reported) Divalproex Sodium (Divalproex Sodium) 250 Mg Tablet.dr, 250 MG PO BID, (Reported) Ferrous Sulfate (Ferrous Sulfate) 325 Mg Tablet, 325 MG PO BID, (Reported) Furosemide (Furosemide) 40 Mg Tab, 60 MG PO DAILY, (Reported) Insulin Glargine (Lantus) 100 Unit/1 Ml Vial, 14 UNITS SC QAM, (Reported) Insulin Glargine (Lantus) 100 Unit/1 Ml Vial, 5 UNITS SC QPM, (Reported) Polyethylene Glycol 3350 (Miralax) 119 Gm Powder, 17 GM PO Q2D, (Reported) dilute in 8 ounces of water or juice Propylene Glycol/Peg 400/Pf (Systane 0.3-0.4% Eye Drop) 1 Each Droperette, 1 DROP OU DAILY, (Reported) Trazodone HCl (Trazodone HCl) 50 Mg Tablet, 25 MG PO QHS, (Reported) Scheduled PRN Acetaminophen (Acetaminophen) 650 Mg Supp.rect, 650 MG CA Q4H PRN for PAIN / FEVER, (Reported) Acetaminophen (Acetaminophen) 325 Mg Tablet, 650 MG PO Q4H PRN for PAIN LEVEL 1- 4, (Reported) Bisacodyl (Dulcolax) 10 Mg Sup, 10 MG CA DAILY PRN for CONSTIPATION, (Reported) Glucagon,Human Recombinant (Glucagon Emergency Kit) 1 Mg Vial, 1 MG IM ASDIRECTED PRN for LOW BLOOD SUGAR, (Reported) Milk Of Magnesia (Milk of Magnesia) 2,400 Mg/10 Ml Oral.susp, 10 ML PO DAILY PRN for CONSTIPATION, (Reported) Sodium Phosphate,Mobile-Dibasic (Enema Ready To Use) 1 Nicole Nicole, 1 NICOLE CA DAILY PRN for CONSTIPATION, (Reported) BEKA HUOGH MD Nov 07, 2020 22:24
[2020-11-07 22:30] VITALS: BP 162/61
[2020-11-07] MEDS ORDERED: traMADol 50 MG TAB PO PRN (22:50)
[2020-11-07] MEDS ORDERED: MOM 30ML SUSPENSION UDC PO PRN (22:50)
[2020-11-07] MEDS ORDERED: RAMELTEON 8 MG TAB (ROZEREM) PO PRN (22:50)
[2020-11-07] MEDS ORDERED: HALOPERIDOL 5MG/ML VIAL (J1630 PER 1) IM PRN (22:50)
[2020-11-08] MEDS: APIXABAN 2.5 MG TAB (ELIQUIS) PO SCH ×2 (00:56→09:34)
[2020-11-08] MEDS: FERROUS SULFATE 325MG TAB PO SCH ×2 (00:56→09:35)
[2020-11-08] MEDS: DIVALPROEX 250 MG TAB PO SCH ×2 (00:57→09:34)
[2020-11-08] MEDS: busPIRone 10 MG TAB PO SCH ×2 (00:57→09:35)
[2020-11-08 01:36] VITALS: BP 131/72
[2020-11-08] MEDS ORDERED: MORPHINE 4 MG/ML 1ML VIAL/SYRINGE (J2270) IV ONE (01:55)
[2020-11-08 02:47] VITALS: BP 131/69
[2020-11-08] MEDS ORDERED: METOPROLOL TART 12.5 MG PER 1/2 TAB PO ONE (02:50)
[2020-11-08 06:00] VITALS: BP 127/55
[2020-11-08 06:17] LABS: BASO # 0.1 10^3/uL (0.0-0.2); BASO % 0.6 % (0.0-1.0); HEMATOCRIT 35.5 % (36.0-47.0); HEMOGLOBIN 11.2 g/dl (12.0-15.5); LYMPH # 0.9 10^3/uL (1.5-5.0); LYMPH % 9.9 % (24.0-44.0); MEAN CORPUSCULAR HEMOGLOBIN 28.8 pg (27.0-33.0); MEAN CORPUSCULAR HGB CONC 31.5 g/dl (32.0-36.5); MEAN CORPUSCULAR VOLUME 91.3 fl (80.0-96.0); MONO # 1.3 10^3/uL (0.0-0.8); MONO % 14.3 % (2.0-8.0); NEUTROPHILS % 74.6 % (36.0-66.0); PLATELET COUNT, AUTOMATED 200 10^3/uL (150-450); RED BLOOD COUNT 3.89 10^6/uL (4.00-5.40); WHITE BLOOD COUNT 9.4 10^3/uL (4.0-10.0)
--- NOTE | 2020-11-08 06:22 | ECGEPIP ---
[facility] Test Date: 2020-11-08 Pat Name: MANUEL GUZMAN Department: Room: [place] [address] Gender: Female Slip Cover Maker: [id number] : [id number] Requested By: CIRO Armstrong Order Number: [id number] Reading MD: Paula Phelps Measurements Intervals [place] Rate: 126 P: -88 VA: 226 QRS: -59 QRSD: 62 T: 85 QT: 306 QTc: 443 Interpretive Statements Undetermined rhythm rate faster Left axis deviation Low voltage QRS precordial leads Septal infarct , age undetermined Interpret limited due to baseline noise Electronically Signed on 11-08-2020 6:21:24 EDT by Paula Phelps
[2020-11-08 06:39] LABS: CREATININE FOR GFR 1.28 MG/DL (0.55-1.30); GLOMERULAR FILTRATION RATE 42.1 (>32); POTASSIUM SERUM 4.5 MEQ/L (3.5-5.1)
[2020-11-08 06:42] LABS: INR 1.18; PROTHROMBIN TIME 15.4 SECONDS (12.7-14.5)
[2020-11-08 06:43] LABS: PARTIAL THROMBOPLASTIN TIME 37.9 SECONDS (25.9-37.0)
--- NOTE | 2020-11-08 08:01 | REP ---
INDICATION: fracture. COMPARISON: Comparison knee radiographs earlier on the same date 11/07/2020. TECHNIQUE: Two views. 20 seconds of fluoroscopy time is reported. FINDINGS: A sequence of 2 last image hold fluoroscopically obtained spot radiographs of the right knee are presented. IMPRESSION: Procedural imaging. <Electronically signed by Jeremie Chakraborty > 11/08/20 0753
--- NOTE | 2020-11-08 08:45 | REP ---
INDICATION: leukocytosis. COMPARISON: 07/03/2020. TECHNIQUE: Single portable AP view of the chest was performed. FINDINGS: Mild chronic interstitial prominence is stable. The heart and mediastinum are somewhat magnified. The visualized osseous structures appear intact. IMPRESSION: No acute pulmonary disease.Stable chronic changes. <Electronically signed by Otto Holt > 11/08/20 0850
[2020-11-08] MEDS ORDERED: LEVEMIR (INSULIN DETEMIR) 1 UNITS/0.01ML SC SCH (09:00)
[2020-11-08] MEDS ORDERED: MIRALAX *UNIT DOSE* 17GM PACKET PO SCH (09:00)
--- NOTE | 2020-11-08 09:01 | REP ---
INDICATION: post reduction in cast. COMPARISON: Comparison radiographs are from 11/07/2020. TECHNIQUE: Three views. FINDINGS: Three views of the right distal femur demonstrate advanced diffuse osteopenia. There is a somewhat impacted transversely oriented distal femoral metaphyseal fracture essentially unchanged in alignment. Overlying cast material is seen. Osteoarthritis at the knee. IMPRESSION: Somewhat impacted transverse fracture distal femoral metaphysis essentially unchanged in alignment. <Electronically signed by Jeremie Chakraborty > 11/08/20 0837
[2020-11-08 09:38] VITALS: BP 124/68
[2020-11-08] MEDS: HumaLOG INSULIN (NovoLOG) PER UNIT SC SCH ×2 (09:39→12:00)
[2020-11-08] MEDS ORDERED: TRAM50TA2 PO (12:03)
--- NOTE | 2020-11-08 12:58 | REP ---
INDICATION: back pain. COMPARISON: CT 08/03/2020. TECHNIQUE: Limited AP and cross-table lateral views of the lumbar spine. FINDINGS: There is no evidence of compression fracture or malalignment. There is moderate disc space narrowing at L5-S1. There is mild diffuse spurring. The posterior elements appear intact. IMPRESSION: Limited exam demonstrates no definite fracture or dislocation. There are degenerative changes most significantly at the L5-S1 level. <Electronically signed by Otto Holt > 11/08/20 [id number]
--- NOTE | 2020-11-08 13:01 | REP ---
INDICATION: back pain. COMPARISON: None. TECHNIQUE: Seven views of the cervical spine are provided. FINDINGS: There is diffuse osteopenia. Open mouth odontoid views show normal C1-2 alignment. There is a dystrophic calcification to the left of the trachea in the region of the left thyroid gland. Lateral views and swimmer's lateral view show normal alignment and preserved vertebral body heights the C6 and C7 vertebral bodies are not displayed on lateral radiograph due to technical factors and relative patient immobility. AP and oblique images show no malalignment. Normally aligned facets. IMPRESSION: Diffuse osteopenia. No malalignment seen. Less than optimal visualization on lateral projection of the lower cervical spine. <Electronically signed by Jeremie Chakraborty > 11/08/20 [id number]
--- NOTE | 2020-11-08 13:02 | REP ---
INDICATION: back pain. COMPARISON: Chest radiographs 01/21/2019. TECHNIQUE: Two limited AP and cross-table lateral views. FINDINGS: There is slight loss of height of 2 consecutive midthoracic vertebral bodies. This appears similar to the prior exam. There is no definite acute compression fracture. There is normal thoracic kyphosis. There is moderate diffuse spurring. There is mild disc space narrowing and subchondral sclerosis at all levels. Posterior elements are grossly intact. IMPRESSION: Degenerative changes. No gross acute fracture or dislocation. <Electronically signed by Otto Holt > 11/08/20 [id number]
--- NOTE | 2020-11-08 14:15 | DS.PDOC ---
Discharge Summary General Date of Admission Nov 07, 2020 at 19:50 Date of Discharge 11/08/2020 Discharge Summary PROCEDURES PERFORMED DURING STAY: Circumferential plaster cast was applied to the right lower extremity by Dr. Mata on 11/07/2020 ADMITTING DIAGNOSES / DISCHARGE DIAGNOSES: Distal right femur fracture - 2/2 suspected fall s/p SHILOH s/p Leukocytosis - likely 2/2 reactive etiology Trace LE Edema - suspected CHF (Unclear etiology) DM2 Paroxysmal A. fib Obesity Dementia w/ mood disturbance DVT prophylaxis COMPLICATIONS/CHIEF COMPLAINT: Fall HISTORY OF PRESENT ILLNESS: Patient is an 85-year-old female with past medical history of diabetes, obesity, history of TIA, dementia, neuropathy, depressive disorder, GERD who presented to the emergency room from [facility] after reported fall. Patient uses a wheelchair at baseline and is Chase lift. Upon arrival to emergency room, patient has had several imaging studies completed with evidence of right femoral fracture. Patient was admitted to the hospitalist service for further evaluation and treatment. Orthopedic surgery was called on consultation. Patient was seen and examined at the bedside. Currently denies any chest pain, shortness of breath or palpitations. Has not experience any nausea, vomiting, abdominal pain. Patient reports some achiness of her right lower extremity. HOSPITAL COURSE: Distal right femur fracture - 2/2 suspected fall - Patient is bedbound and Chase lift at baseline. It is unclear how she had fallen - Imaging noted below - After extensive discussion between orthopedic surgery and family; they have opted for conservative therapy - risks and benefits were discussed - Weightbearing status as per orthopedic surgery s/p SHILOH - Cr of 1.3 on admission; 0.8 at baseline - Creatinine has been downtrending - s/p Fluids - Will hold Furosemide for 24 hours on discharge s/p Leukocytosis - likely 2/2 reactive etiology - ROS negative - Hemodynamically stable and afebrile - CXR negative for PNA - Will hold off on antibiotics at this time Trace LE Edema - suspected CHF (Unclear etiology) - No evidence of crackles - Will hold Furosemide for single dose; resume within 24 hours DM2 - c/w ISS Paroxysmal A. fib - c/w rate control with Cardizem - c/w full anticoagulation with Eliquis Obesity - BMI of 39.9 - Complicating medical care Dementia w/ mood disturbance DVT prophylaxis - c/w Full anticoagulation with Eliquis DISCHARGE MEDICATIONS: Please see below. ALLERGIES: Please see below. PHYSICAL EXAMINATION ON DISCHARGE: Vitals (See below) General: Lying in bed, appears comfortable, awake / alert HEENT: NC, AT CVS: RRR, +S1S2 Lungs: Fair air entry b/l, no wheezing, rales or rhonchi Abdomen: Soft, nondistended, nontender Extremities: RLE with dressing in place, Trace LE edema LABORATORY DATA: Please see below. IMAGING: Femur XR 11/07: Distal femoral metaphyseal fracture with some impaction and posterior displacement. Diffuse osteoporosis. Osteoarthritis at the knee and hip. Knee XR 11/07: Distal femoral metaphyseal fracture. Osteoporosis. Osteoarthritis. Tib / Fib XR 11/07: Femoral fracture as noted in the femur series. Diffuse osteoporosis and vascular calcification. No tib fib fracture seen. Head CT 11/07: No acute intracranial abnormality. Chronic microvascular ischemic changes. Femur XR 11/08: Procedural imaging. CXR 11/08: No acute pulmonary disease.Stable chronic changes. Femur XR 10/08: Somewhat impacted transverse fracture distal femoral metaphysis essentially unchanged in alignment. XR Cervical spine 10/08: Diffuse osteopenia. No malalignment seen. Less than optimal visualization on lateral projection of the lower cervical spine. XR Thoracic spine 10/08: Degenerative changes. No gross acute fracture or dislocation. XR Lumbosacral spine 10/08: Limited exam demonstrates no definite fracture or dislocation. There are degenerative changes most significantly at the L5-S1 level. ACTIVITY: [As tolerated]. DISCHARGE PLAN: Follow-up with primary care provider and orthopedic surgery within the next 7 days Remain compliant with treatment plan and medications Return to the ER if you experience any problems DISPOSITION: [facility]. DISCHARGE CONDITION: [Stable]. TIME SPENT ON DISCHARGE: 35 minutes. Vital Signs/I&Os Vital Signs Date Time Temp Pulse Resp B/P (MAP) Pulse Ox O2 Delivery O2 Flow Rate FiO2 11/08/20 10:05 18 11/08/20 09:38 99 124/68 11/08/20 06:00 98.7 88 Room Air 11/07/20 21:13 4.0 I&O- Last 24 Hours up to 6 AM 11/08/20 05:59 Intake Total 120 ml Balance 120 ml Laboratory Data Labs 24H Laboratory Tests 2 11/07/20 17:05: Immature Granulocyte % (Auto) 0.6, Neutrophils (%) (Auto) 75.8H, Lymphocytes (%) (Auto) 11.1L, Monocytes (%) (Auto) 10.9H, Eosinophils (%) (Auto) 0.9, Basophils (%) (Auto) 0.7, Neutrophils # (Auto) 9.6H, Lymphocytes # (Auto) 1.4L, Monocytes # (Auto) 1.4H, Eosinophils # (Auto) 0.1, Basophils # (Auto) 0.1, Nucleated Red Blood Cells % (auto) 0.0, Anion Gap 8, Glomerular Filtration Rate 38.3, Calcium Level 8.3L, Magnesium Level 2.1, Total Creatine Kinase 29, TI-Hau-J-Type Natriuretic Peptide 523H 11/07/20 20:11: Coronavirus (COVID-19)(PCR) NEGATIVE, Influenza Type A (RT-PCR) NEGATIVE, Influenza Type B (RT-PCR) NEGATIVE, Respiratory Syncytial Virus (PCR) NEGATIVE 11/07/20 20:14: Procalcitonin <0.05 11/07/20 20:29: Lactic Acid Level 2.9*H 11/07/20 22:45: Bedside Glucose (Misc Panel) 147H 11/08/20 00:48: Lactic Acid Followup at 4 Hours 1.5 11/08/20 05:38: Immature Granulocyte % (Auto) 0.6, Neutrophils (%) (Auto) 74.6H, Lymphocytes (%) (Auto) 9.9L, Monocytes (%) (Auto) 14.3H, Eosinophils (%) (Auto) 0.0, Basophils (%) (Auto) 0.6, Neutrophils # (Auto) 7.0, Lymphocytes # (Auto) 0.9L, Monocytes # (Auto) 1.3H, Eosinophils # (Auto) 0.0, Basophils # (Auto) 0.1, Nucleated Red Blood Cells % (auto) 0.0, Prothrombin Time 15.4H, Prothromb Time International Ratio 1.18, Activated Partial Thromboplast Time 37.9, Anion Gap 4L, Glomerular Filtration Rate 42.1, Calcium Level 8.0L 11/08/20 11:58: Bedside Glucose (Misc Panel) 92 CBC/BMP Laboratory Tests 11/07/20 17:05 11/08/20 05:38 FSBS Laboratory Tests Test 11/07/20 22:45 11/08/20 11:58 Range/Units Bedside Glucose (Misc Panel) 147 92 83-110 MG/DL Discharge Medications Scheduled Apixaban (Eliquis) 2.5 Mg Tablet, 2.5 MG PO BID, (Reported) Aripiprazole (Aripiprazole) 2 Mg Tablet, 2 MG PO DAILY, (Reported) Aripiprazole (Aripiprazole) 5 Mg Tablet, 5 MG PO DAILY, (Reported) Buspirone HCl (Buspirone HCl) 10 Mg Tablet, 10 MG PO BID, (Reported) Diltiazem Hcl (Cardizem Cd) 240 Mg Cap.er.24h, 240 MG PO DAILY, (Reported) Divalproex Sodium (Divalproex Sodium) 250 Mg Tablet.dr, 250 MG PO BID, (Repor lalo) Ferrous Sulfate (Ferrous Sulfate) 325 Mg Tablet, 325 MG PO BID, (Reported) Insulin Glargine (Lantus) 100 Unit/1 Ml Vial, 14 UNITS SC QAM, (Reported) Insulin Glargine (Lantus) 100 Unit/1 Ml Vial, 5 UNITS SC QPM, (Reported) Polyethylene Glycol 3350 (Miralax) 119 Gm Powder, 17 GM PO Q2D, (Reported) dilute in 8 ounces of water or juice Propylene Glycol/Peg 400/Pf (Systane 0.3-0.4% Eye Drop) 1 Each Droperette, 1 DROP OU DAILY, (Reported) Trazodone HCl (Trazodone HCl) 50 Mg Tablet, 25 MG PO QHS, (Reported) Scheduled PRN Acetaminophen (Acetaminophen) 650 Mg Supp.rect, 650 MG MO Q4H PRN for PAIN / FEVER, (Reported) Acetaminophen (Acetaminophen) 325 Mg Tablet, 650 MG PO Q4H PRN for PAIN LEVEL 1- 4, (Reported) Bisacodyl (Dulcolax) 10 Mg Sup, 10 MG MO DAILY PRN for CONSTIPATION, (Reported) Glucagon,Human Recombinant (Glucagon Emergency Kit) 1 Mg Vial, 1 MG IM ASDIRECTED PRN for LOW BLOOD SUGAR, (Reported) Milk Of Magnesia (Milk of Magnesia) 2,400 Mg/10 Ml Oral.susp, 10 ML PO DAILY PRN for CONSTIPATION, (Reported) Sodium Phosphate,Ste. [place]evieve-Dibasic (Enema Ready To Use) 1 Cynthia Cynthia, 1 CYNTHIA MO DAILY PRN for CONSTIPATION, (Reported) Tramadol HCl (Tramadol HCl) 50 Mg Tablet, 50 MG PO Q8HP PRN for MODERATE PAIN (PS 5-7) Allergies Coded Allergies: Penicillins (Verified Allergy, Mild, rash, 07/06/19) nitrofurantoin (Verified Allergy, Mild, rash, 07/06/19) aspirin (Verified Adverse Reaction, Mild, gi upset, 07/06/19) ANNAMARIE FLOYD MD Nov 08, 2020 14:14
== END 2020-11-08 13:17 | DRG 534 ==
LOC: EDBD 16:38 → M ED 16:38 → M ED INP 19:50 → M MSPAV 22:30
PROVIDERS: ADMIT Family Medicine; ATTEND Internal Medicine
DX: S79.191A Other physeal fracture of lower end of right femur, initial encounter for closed fracture (principal); N17.9 Acute kidney failure, unspecified; E87.2 Acidosis; F03.91 Unspecified dementia, unspecified severity, with behavioral disturbance; E66.9 Obesity, unspecified; I48.0 Paroxysmal atrial fibrillation; E11.40 Type 2 diabetes mellitus with diabetic neuropathy, unspecified; D72.829 Elevated white blood cell count, unspecified; I50.9 Heart failure, unspecified; Z86.73 Personal history of transient ischemic attack (TIA), and cerebral infarction without residual deficits; W18.30XA Fall on same level, unspecified, initial encounter; Y92.129 Unspecified place in nursing home as the place of occurrence of the external cause; Z68.39 Body mass index [BMI] 39.0-39.9, adult; Z79.899 Other long term (current) drug therapy; Z88.0 Allergy status to penicillin; Z88.6 Allergy status to analgesic agent; Z88.8 Allergy status to other drugs, medicaments and biological substances

== ENCOUNTER → 2020-12-05 | Outpatient (CLI) | payer MEDICARE, MEDICAID ==
[~2020-12-05] MED LIST changes: +ACET1TAB55 PO; +ARIP1TAB4 PO; +ARIP1TAB6 PO; +BUSP10TA PO; +DIVA250T67 PO; +FERR1TAB8 PO; +MIRA3350 PO; +SYST1SOL4 OU; +TRAM50TA2 PO; +TRAZ1TAB11 PO
--- NOTE | 2020-12-05 15:18 | REP ---
INDICATION: RT FEMUR FX. COMPARISON: 11/09/2019 TECHNIQUE: AP and frog-lateral FINDINGS: The bones are demineralized. Degenerative changes seen at the hip level status quo. There is a distal femoral diametaphyseal impacted fracture which does not appear to be significantly changed. IMPRESSION: Marked bony demineralization. Stable appearing fracture. Degenerative changes seen at the hip and knee. <Electronically signed by Jimmie Edwards > 12/05/20 [id number]
== END ==
LOC: M SOG 08:09
PROVIDERS: ATTEND Orthopaedic Surgery Adult Reconstructive Orthopaedic Surgery
DX: S72.401D Unspecified fracture of lower end of right femur, subsequent encounter for closed fracture with routine healing (principal)

== ENCOUNTER → 2021-01-03 | Outpatient (CLI) | payer MEDICARE, MEDICAID ==
--- NOTE | 2021-01-03 10:15 | REP ---
INDICATION: RT FEMUR FX. COMPARISON: 12/05/2020 TECHNIQUE: Limited three views of the mid to distal femur. FINDINGS: There is a nonacute transverse fracture involving the distal femoral metaphysis with overlying periosteal reaction and callus formation. Age-related osteopenia and degenerative changes are noted along with peripheral vascular disease. IMPRESSION: Stable appearance to the nonacute distal metaphyseal fracture. <Electronically signed by Devan Hernandez > 01/03/21 1011
== END ==
LOC: M SOG 08:36
PROVIDERS: ATTEND Orthopaedic Surgery Adult Reconstructive Orthopaedic Surgery
DX: S72.401D Unspecified fracture of lower end of right femur, subsequent encounter for closed fracture with routine healing (principal); X58.XXXD Exposure to other specified factors, subsequent encounter

== ENCOUNTER → 2021-02-04 | Outpatient (CLI) | payer MEDICARE, MEDICAID | LOC: M SOG 11:10 | PROVIDERS: ATTEND Orthopaedic Surgery Adult Reconstructive Orthopaedic Surgery | DX: S72.401D Unspecified fracture of lower end of right femur, subsequent encounter for closed fracture with routine healing (principal); X58.XXXD Exposure to other specified factors, subsequent encounter ==

== ENCOUNTER → 2021-03-18 | Outpatient (REF) | payer MEDICARE, MEDICAID ==
[2021-03-18 11:43] LABS: CALCIUM LEVEL 8.5 MG/DL (8.8-10.2); PHOSPHORUS LEVEL 3.4 MG/DL (2.5-4.9)
[2021-03-18 12:49] LABS: PTH INTACT 78.6 PG/ML (18.5-88.0)
== END ==
PROVIDERS: ATTEND Nurse Practitioner Primary Care
DX: N18.9 Chronic kidney disease, unspecified (principal); Z79.899 Other long term (current) drug therapy

== ENCOUNTER → 2021-04-22 | Outpatient (REF) | payer MEDICARE, MEDICAID | PROVIDERS: ATTEND Internal Medicine | DX: L89.90 Pressure ulcer of unspecified site, unspecified stage (principal); Z53.9 Procedure and treatment not carried out, unspecified reason ==